=== PATIENT | female | born 1950 | race Caucasian/White ===

== ENCOUNTER → 2016-12-23 | Outpatient (CLI) | payer OTHER ==
[2016-11-20 10:43] VITALS: BP 139/65
--- NOTE | 2016-12-24 16:59 | MRI ---
STUDY: MRI OF THE CERVICAL SPINE HISTORY: Cervical disc degeneration. Comparison: None. Technique: An MRI of the cervical spine including sagittal T1, T2, and T2 STIR, axial T1, and T2 FSE images was performed using standard departmental protocol. Findings: Sagittal images: There postsurgical changes status post diskectomy with fusion and anterior plate and screw fixation from C5-7. There straightening of usual cervical lordosis at these levels. There is r eversal of the usual cervical lordosis centered at C4. There is some Modic type 1 change in the C3 an d C4 vertebral bodies. There is degenerative disk disease and degenerative endplate change at C3/4-C4 /5. There is no significant prevertebral soft tissue swelling. The surrounding paraspinal soft tissue s are unremarkable. There is no evidence of cord compression. No intrinsic signal abnormalities are identified in the spinal cord itself. Axial images: C2 -- C3: Normal. C3 -- C4: There is posterior disc osteophyte complex and bilateral uncovertebral osteophyte formation . This results in effacement of the ventral thecal sac and contouring of the ventral aspect of spinal cord. Overall, there is moderate to severe spinal stenosis. The neural foramina are adequate. C4 -- C5: This posterior disc osteophyte complex and bilateral uncovertebral osteophyte formation. Th e combination of these findings results in moderate central canal stenosis. The neural foramina are a dequate. C5 -- C6: There are postsurgical changes at this level. The central canal neural foramina are adequat e. C6 -- C7: There postsurgical changes at this level. The central canal neural foramina are adequate. C7 -- T1: Normal. IMPRESSION: 1. Postsurgical change status post fusion with anterior plate and screw fixation from C5-C7. 2. Moderate-severe spinal stenosis at C3/4. 3. Moderate spinal stenosis at C4/5. Reported By:
== END | disposition home or self-care (01) ==
LOC: RAD 14:58
PROVIDERS: ATTEND Nurse Practitioner Family
DX: M50.30 Other cervical disc degeneration, unspecified cervical region (principal); M48.02 Spinal stenosis, cervical region
CPT/HCPCS: 72141

== ENCOUNTER → 2017-04-07 | Outpatient (CLI) | payer OTHER ==
[2016-11-20 10:43] VITALS: BP 139/65
[2017-04-07 18:39] LABS: BASOPHILS # (AUTO) 0.1 X10^3/uL (0.0-0.1); BASOPHILS % (AUTO) 0.9 % (0.2-1.0); EOSINOPHILS % (AUTO) 0.3 % (0.9-2.9); HEMATOCRIT 34.2 % (36.0-47.0); HEMOGLOBIN 11.6 g/dL (12.0-16.0); LYMPHOCYTES # (AUTO) 1.7 X10^3/uL (1.3-2.9); LYMPHOCYTES % (AUTO) 17.9 % (21.0-51.0); MEAN CORPUSCULAR HEMOGLOBIN 29.1 pg (27.0-34.0); MEAN CORPUSCULAR HGB CONC 33.8 g/dL (33.0-35.0); MEAN CORPUSCULAR VOLUME 86.2 fL (80.0-100.0); MEAN PLATELET VOLUME 8.2 fL (7.4-11.0); MONOCYTES # (AUTO) 0.6 x10^3/uL (0.3-0.8); MONOCYTES % (AUTO) 6.1 % (0.0-13.0); NEUTROPHILS % (AUTO) 74.8 % (42.0-75.0); PLATELET COUNT 289 X10^3/uL (150.0-450.0); RED BLOOD COUNT 3.97 X10^6/uL (3.5-5.4); RED CELL DISTRIBUTION WIDTH 13.6 % (11.6-16.5); WHITE BLOOD COUNT 9.3 X10^3/uL (3.6-10.0)
[2017-04-07 19:04] LABS: ALANINE AMINOTRANSFERASE 18 Units/L (12-78); ALBUMIN 3.9 g/dL (3.4-5.0); ALKALINE PHOSPHATASE 106 Units/L (46-116); ASPARTATE AMINO TRANSFERASE 21 Units/L (15-37); BLOOD UREA NITROGEN 15 mg/dL (7-18); CALCIUM 9.6 mg/dL (8.5-10.1); CARBON DIOXIDE 29.3 mmol/L (21-32); CHLORIDE 103 mmol/L (98-107); CREATININE 0.84 mg/dL (0.55-1.02); FREE T4 (FREE THYROXINE) 1.05 ng/dL (0.76-1.46); SODIUM 140 mmol/L (136-145); TSH (3RD GENERATION) 1.379 uIU/mL (0.358-3.74); eGFR BLACK RACES > 60 (>60); eGFR NON BLACK RACES > 60 (>60)
--- NOTE | 2017-04-08 07:44 | RAD ---
HISTORY: Nausea, vomiting, constipation Study: Flat and upright abdomen, PA chest Comparison: None Findings: The abdominal gas pattern is nonspecific and nonobstructive. No pneumoperitoneum is identified. No ab normal masses or abnormal calcifications are identified. The chest is clear. IMPRESSION: Unremarkable abdominal series Reported By:
== END ==
LOC: LAB 17:48
PROVIDERS: ATTEND Nurse Practitioner Family
DX: R11.2 Nausea with vomiting, unspecified (principal); I10 Essential (primary) hypertension; R00.0 Tachycardia, unspecified; K59.09 Other constipation
CPT/HCPCS: 36415; 74022; 80053; 84439; 84443; 85025

== ENCOUNTER 2022-06-26 14:13 | Inpatient (IN) ==
[2022-06-26] MEDS ORDERED: DUONEB 0.5 MG/3 MG (3 mL) NEB ONE (16:18)
[2022-06-26] MEDS: DUONEB 0.5 MG/3 MG (3 mL) NEB SCH ×2 (16:45→20:40)
[2022-06-26] MEDS ORDERED: TESSALON PERLES PO PRN (17:20)
[2022-06-26 18:01] LABS: BASOPHILS # (AUTO) 0.1 X10^3/uL (0.0-0.1); BASOPHILS % (AUTO) 1.1 % (0.2-1.0); EOSINOPHILS # (AUTO) 0.2 x10^3/uL (0.0-0.2); EOSINOPHILS % (AUTO) 3.7 % (0.9-2.9); HEMATOCRIT 31.2 % (36.0-47.0); HEMOGLOBIN 10.6 g/dL (12.0-16.0); LYMPHOCYTES # (AUTO) 1.4 X10^3/uL (1.3-2.9); LYMPHOCYTES % (AUTO) 29.4 % (21.0-51.0); MEAN CORPUSCULAR HEMOGLOBIN 28.9 pg (27.0-34.0); MEAN CORPUSCULAR HGB CONC 33.9 g/dL (33.0-35.0); MEAN CORPUSCULAR VOLUME 85.2 fL (80.0-100.0); MEAN PLATELET VOLUME 8.5 fL (7.4-11.0); MONOCYTES # (AUTO) 0.5 x10^3/uL (0.3-0.8); MONOCYTES % (AUTO) 9.7 % (0.0-13.0); NEUTROPHILS # (AUTO) 2.6 x10^3/uL (2.2-4.8); NEUTROPHILS % (AUTO) 56.1 % (42.0-75.0); RED BLOOD COUNT 3.66 X10^6/uL (3.5-5.4); RED CELL DISTRIBUTION WIDTH 15.7 % (11.6-16.5); WHITE BLOOD COUNT 4.7 X10^3/uL (3.6-10.0)
[2022-06-26 18:04] LABS: ALANINE AMINOTRANSFERASE 24 Units/L (12-78); ALBUMIN 3.6 g/dL (3.4-5.0); ALKALINE PHOSPHATASE 46 Units/L (46-116); ASPARTATE AMINO TRANSFERASE 46 Units/L (15-37); BLOOD UREA NITROGEN 35 mg/dL (7-18); CALCIUM 8.6 mg/dL (8.5-10.1); CARBON DIOXIDE 28.6 mmol/L (21-32); CHLORIDE 106 mmol/L (98-107); CREATININE 1.58 mg/dL (0.55-1.02); MAGNESIUM 2.2 mg/dL (2.0-2.9); SODIUM 142 mmol/L (136-145); eGFR NON BLACK RACES 34 (>60)
[2022-06-26] MEDS ORDERED: VENTOLIN or PROAIR HFA IN PRN (18:13)
--- NOTE | 2022-06-26 18:20 | DR.H&P ---
H&P - History & Physical for Day of: H&P Date: 06/26/22 - Chief Complaint Chief Complaint: CCC, SOB - History of Present Illness History of Present Illness: PT IS 71 WF, DIRECT ADMIT FROM DR BUSTOS OFFICE WITH FAILED OUTPT TREATMENT OF PNEUMONIA WITH COPD. PT CO ONSET OF CCC ON THURSDAY NIGHT. PT HAS BEEN ON PO LEVAQUIN AND RECEIVED IM ROCEPHIN X 2 DOSES AND IM STEROIDS WITHOUT IMPROVEMENT IN RESPIRATORY SYMPTOMS. PT HAS PMH OF CAD, COPD, HTN, LUCHO, FLOWER, AND OA. PT ADMITTED FOR TREATMENT OF ACUTE ILLNESS. - Past Medical History Past Medical History: Anxiety, Arthritis, COPD, Coronary Artery Disease, GERD, Hypertension - Past Surgical History Surgical History: Hysterectomy, Other - Family History Family Medical History: Hypertension - Social History Does patient currently use any type of tobacco product: No Have you used tobacco products in the last 12 months: No Type of Tobacco Use: None Does any household member use tobacco: No Alcohol Use: None Drug Use: None - Medications Home Medications: codeine Adverse Reaction (Verified 09/30/19 09:24) CONTINUE taking the following medications albuterol sulfate 90 mcg/actuation aerosol inhaler 1 inh inhalation BID PRN Shortness Of Breath 06/26/22 [History] amlodipine 5 mg tablet 5 mg PO BID 06/26/22 [History] aspirin 81 mg chewable tablet 81 mg PO DAILY 06/26/22 [History] bupropion HCl 75 mg tablet 75 mg PO QAM 06/26/22 [History] carvedilol 12.5 mg tablet 12.5 mg PO BID 06/26/22 [History] citalopram 40 mg tablet 40 mg PO HS 06/26/22 [History] fenofibrate 160 mg tablet 160 mg PO QDAY 06/26/22 [History] fluticasone fur. 100 mcg-umeclid 62.5 mcg-vilant 25 mcg inhalat.powder (Trelegy Ellipta) 1 puff inhalation QDAY 06/26/22 [History] furosemide 20 mg tablet 20 mg PO QDAY 06/26/22 [History] hydrochlorothiazide 12.5 mg tablet 12.5 mg PO QDAY 06/26/22 [History] levofloxacin 500 mg tablet 500 mg PO DAILY 06/26/22 [History] losartan 50 mg tablet 50 mg PO QDAY 06/26/22 [History] meloxicam 7.5 mg tablet 7.5 mg PO QDAY 06/26/22 [History] omeprazole 20 mg capsule,delayed release 20 mg PO HS 06/26/22 [History] potassium chloride 10 mEq capsule,extended release 10 meq PO QAM 06/26/22 [History] ropinirole 2 mg tablet 2 mg PO BID 06/26/22 [History] tizanidine 2 mg tablet 2 mg PO QPM PRN Sleep 06/26/22 [History] - Review of Systems Constitutional: Fever, Chills, Weakness Eyes: No Symptoms Reported ENT: Nose Congestion Respiratory: Cough, Shortness of Breath, SOB with Excertion, Wheezing Cardiovascular: Palpitations Gastrointestinal: Nausea Genitourinary: No Symptoms Reported Musculoskeletal: No Symptoms Reported Skin: No Symptoms Reported Neurological: Weakness - Physical Exam Vital Signs: Temperature 98.4 F Pulse Rate [Left Radial] 60 Respiratory Rate 22 Blood Pressure [Right Arm] 158/70 O2 Sat by Pulse Oximetry 95 Oriented: Normal Eyes: Normal Ear: Normal Nose: Discharge Throat: Exudate Respiratory: Wheezes Throughout Cardiovascular: Tachycardia. negative: Edema : Normal Auscultation: Bowel Sounds: Normal Palpation: Normal Tenderness: Normal Skin: Decreased Turgur Musculoskeletal: Normal Psychiatric: Anxiety Affect: Anxious Speech Pattern: Clear, Appropriate - Assessment/Plan (1) Pneumonia Status: Acute Plan: ADMIT, PNEUMONIA PROTOCOL, IV LEVAQUIN. RESP CONSULT ON ADMISSION WITH ROOM AIR ABG, SUPPLEMENTAL O2. RESP THERAPY, SPUTUM CULTURE. BP CONTROL, VERIFY HOME MEDICATION. CXR ON ADMISSION, REPEAT AM LABS (2) COPD (chronic obstructive pulmonary disease) Status: Acute (3) Hypertension Status: Acute (4) CAD (coronary artery disease) Status: Acute - Allergies Allergies/Adverse Reactions: Allergies Allergy/AdvReac Type Severity Reaction Status Date / Time codeine AdvReac Verified 09/30/19 09:24
[2022-06-26] MEDS: SOLU-Medrol 125 MG VIAL IVP SCH ×2 (18:59→21:21)
[2022-06-26] MEDS: NS 1,000 ML IV 1,000 ML IV SCH (18:59)
[2022-06-26] MEDS: PROTONIX INJ 40 MG VIAL IVP SCH (18:59)
[2022-06-26] MEDS: LEVAQUIN PREMIX IV 500 MG 500 MG/100 ML BAG IV SCH (18:59)
[2022-06-26] MEDS: PULMICORT NEB TX 0.5 MG NEB SCH (20:40)
[2022-06-26] MEDS: ROBITUSSIN DM PO SCH (20:46)
[2022-06-26] MEDS: REQUIP PO SCH (20:46)
[2022-06-26] MEDS: NORVASC TAB 5 MG PO SCH (20:46)
[2022-06-26] MEDS: CELEXA PO SCH (20:46)
[2022-06-26] MEDS: PriLOSEC PO SCH (20:46)
[2022-06-26] MEDS: ZANAFLEX PO PRN (20:46)
[2022-06-26] MEDS: COREG TAB 12.5 MG PO SCH (20:46)
[2022-06-27] MEDS: NS 1,000 ML IV 1,000 ML IV SCH ×4 (02:23→21:17)
[2022-06-27 02:35] LABS: BILIRUBIN,URINE NEGATIVE (NEGATIVE); BLOOD/HEMOGLOBIN,URINE NEGATIVE (NEGATIVE); GLUCOSE, URINE NEGATIVE (NEGATIVE); KETONES,URINE NEGATIVE (NEGATIVE); LEUKOCYTE ESTERASE ,URINE NEGATIVE (NEGATIVE); NITRITES,URINE NEGATIVE (NEGATIVE); PROTEIN,URINE 1+ (NEGATIVE); UROBILINOGEN,URINE NORMAL (NORMAL)
[2022-06-27 02:55] LABS: APPEARANCE,URINE CLEAR (CLEAR); COLOR,URINE YELLOW (YELLOW)
[2022-06-27 02:56] LABS: BACTERIA,URINE NEGATIVE /HPF (NEGATIVE); RBC,URINE NONE SEEN /HPF (0-3); SQUAMOUS EPITHELIAL CELL,UR RARE /HPF (NEGATIVE)
[2022-06-27] MEDS: SOLU-Medrol 125 MG VIAL IVP SCH ×4 (05:22→21:18)
[2022-06-27 06:10] LABS: BASOPHILS % (AUTO) 0.8 % (0.2-1.0); HEMATOCRIT 32.6 % (36.0-47.0); HEMOGLOBIN 10.7 g/dL (12.0-16.0); LYMPHOCYTES # (AUTO) 0.9 X10^3/uL (1.3-2.9); LYMPHOCYTES % (AUTO) 20.4 % (21.0-51.0); MEAN CORPUSCULAR HEMOGLOBIN 28.1 pg (27.0-34.0); MEAN CORPUSCULAR VOLUME 85.4 fL (80.0-100.0); MEAN PLATELET VOLUME 8.6 fL (7.4-11.0); MONOCYTES # (AUTO) 0.1 x10^3/uL (0.3-0.8); MONOCYTES % (AUTO) 1.7 % (0.0-13.0); NEUTROPHILS # (AUTO) 3.5 x10^3/uL (2.2-4.8); NEUTROPHILS % (AUTO) 77.1 % (42.0-75.0); RED BLOOD COUNT 3.82 X10^6/uL (3.5-5.4); RED CELL DISTRIBUTION WIDTH 15.4 % (11.6-16.5); WHITE BLOOD COUNT 4.5 X10^3/uL (3.6-10.0)
[2022-06-27 06:23] LABS: ALANINE AMINOTRANSFERASE 23 Units/L (12-78); ALBUMIN 3.5 g/dL (3.4-5.0); ALKALINE PHOSPHATASE 47 Units/L (46-116); ASPARTATE AMINO TRANSFERASE 29 Units/L (15-37); BLOOD UREA NITROGEN 31 mg/dL (7-18); CALCIUM 8.7 mg/dL (8.5-10.1); CARBON DIOXIDE 26.9 mmol/L (21-32); CHLORIDE 108 mmol/L (98-107); COR NA(FOR HYPERGLY) 145 mmol/L (136-145); CREATININE 1.48 mg/dL (0.55-1.02); SODIUM 143 mmol/L (136-145); eGFR NON BLACK RACES 37 (>60)
[2022-06-27] MEDS: DUONEB 0.5 MG/3 MG (3 mL) NEB SCH ×4 (08:24→20:40)
[2022-06-27] MEDS: PULMICORT NEB TX 0.5 MG NEB SCH ×2 (08:24→20:40)
[2022-06-27] MEDS ORDERED: WELLBUTRIN XL 150 MG (DAILY) PO ONE (08:34)
[2022-06-27] MEDS: ROBITUSSIN DM PO SCH ×4 (08:44→20:43)
[2022-06-27] MEDS: PROTONIX INJ 40 MG VIAL IVP SCH (08:44)
[2022-06-27] MEDS: LEVAQUIN PREMIX IV 500 MG 500 MG/100 ML BAG IV SCH (08:45)
[2022-06-27] MEDS: MICRO K EXTEN CAP 10 MEQ PO SCH (08:47)
[2022-06-27] MEDS: COREG TAB 12.5 MG PO SCH ×2 (08:47→20:42)
[2022-06-27] MEDS: LASIX PO SCH (08:47)
[2022-06-27] MEDS: REQUIP PO SCH ×2 (08:47→20:43)
[2022-06-27] MEDS: NORVASC TAB 5 MG PO SCH ×2 (08:48→20:43)
[2022-06-27] MEDS: ASPIRIN 81 MG CHEWTAB PO SCH (08:48)
[2022-06-27] MEDS: WELLBUTRIN XL 150 MG (DAILY) PO SCH (08:48)
[2022-06-27] MEDS: COZAAR PO SCH (08:52)
[2022-06-27] MEDS: MOBIC TAB 15 MG PO SCH (08:52)
[2022-06-27] MEDS ORDERED: TRICOR TAB 160 MG PO SCH (09:00)
[2022-06-27] MEDS: LOVENOX INJ 40 MG SYR SC SCH (10:06)
[2022-06-27] MEDS ORDERED: TUSSIONEX PENNKINETIC SUSP PO PRN (11:11)
--- NOTE | 2022-06-27 13:38 | PCM.PROG ---
Progress Note - Progress Note for Day of Date of Exam: 06/27/22 - Subjective Subjective: PT IS 71 WF, DIRECT ADMIT FROM DR BUSTAMANTE OFFICE WITH PNEUMONIA, FAILED OUTPT THERAPY. PT IS CURRENTLY ON IV LEVAQUIN WITH CONTINUE DIFFUSE EXPIRATORY WHEEZES AND SOB ON EXERTION. PT HAS A SEVERE COUGH WITHOUT ABILITY TO PRODUCE AND SPUTUM SPECIMEN YET. PT ENCOURAGE ORAL HYDRATION AND PULMONARY TOILETING. WE ADDED TUSSIONEX FOR COUGH CONTROL. PT HAS BEEN ON IV SOLU MEDROL 80MG AND HER BP WAS ELEVATED THIS AM, SHE ALSO REPORTS SHE DID NOT SLEEP WELL. PLAN TO DECREASE SOLU MEDROL TO 40MG IV Q 8HRS AND REPEAT AM CXR. PT HAS AN ABG ORDERED ON ADMISSION, HOWEVER PT REFUSED TESTING. PT REPORTS SHE HAS COPD AND HAS HOME O2. - Past Medical Family Social History Past Med/Fam/Surg Hx: No changes since H&P Allergies: Allergies codeine Adverse Reaction (Verified 09/30/19 09:24) - Review of Systems ROS: No change since H&P - Vital Signs and I&O's Vital Signs: Temperature 97.6 F Pulse Rate [Left Radial] 86 Pulse Rate 68 Respiratory Rate 20 Blood Pressure [Right Arm] 177/76 O2 Sat by Pulse Oximetry 94 Intake and Output: Intake & Output 06/25/22 06/26/22 06/27/22 06/28/22 11:59 11:59 11:59 11:59 Intake Total 1613 / 1613 Balance 1613 / 1613 - Physical Exam Oriented: Normal Eyes: Normal Ear: Normal Nose: Discharge Throat: Exudate Respiratory: Diminished, Wheezes Cardiovascular: Tachycardia. negative: Edema : Normal Auscultation: Bowel Sounds: Normal Tenderness: Normal Skin: Decreased Turgur Musculoskeletal: Normal Psychiatric: Anxiety Affect: Anxious Speech Pattern: Clear, Appropriate - Laboratory and Diagnostics Result Diagrams: 06/27/22 05:29 06/27/22 05:29 Labs: Laboratory WBC 4.5 X10^3/uL (3.6-10.0) 06/27/22 05: RBC 3.82 X10^6/uL (3.5-5.4) 06/27/22 05:29 Hgb 10.7 g/dL (12.0-16.0) L 06/27/22 05:29 Hct 32.6 % (36.0-47.0) L 06/27/22 05:29 MCV 85.4 fL (80.0-100.0) 06/27/22 05:29 MCH 28.1 pg (27.0-34.0) 06/27/22 05:29 MCHC 33.0 g/dL (33.0-35.0) 06/27/22 05: RDW 15.4 % (11.6-16.5) 06/27/22 05:29 Plt Count 284 X10^3/uL (150.0-450.0) 06/27/22 05:29 MPV 8.6 fL (7.4-11.0) 06/27/22 05:29 Neut % (Auto) 77.1 % (42.0-75.0) H 06/27/22 05:29 Lymph % (Auto) 20.4 % (21.0-51.0) L 06/27/22 05:29 [place] % (Auto) 1.7 % (0.0-13.0) 06/27/22 05:29 Eos % (Auto) 0.0 % (0.9-2.9) L 06/27/22 05:29 Baso % (Auto) 0.8 % (0.2-1.0) 06/27/22 05:29 Neut # (Auto) 3.5 x10^3/uL (2.2-4.8) 06/27/22 05:29 Lymph # (Auto) 0.9 X10^3/uL (1.3-2.9) L 06/27/22 05:29 [place] # (Auto) 0.1 x10^3/uL (0.3-0.8) L 06/27/22 05:29 Eos # (Auto) 0.0 x10^3/uL (0.0-0.2) 06/27/22 05:29 Baso # (Auto) 0.0 X10^3/uL (0.0-0.1) 06/27/22 05:29 Absolute Nucleated RBC 0.0 /100WBC 06/27/22 05:29 Sodium 143 mmol/L (136-145) 06/27/22 05:29 Corrected Sodium 145 mmol/L (136-145) 06/27/22 05:29 Potassium 4.9 mmol/L (3.5-5.1) 06/27/22 05:29 Chloride 108 mmol/L (98-107) H 06/27/22 05:29 Carbon Dioxide 26.9 mmol/L (21-32) 06/27/22 05:29 BUN 31 mg/dL (7-18) H 06/27/22 05:29 Creatinine 1.48 mg/dL (0.55-1.02) H 06/27/22 05:29 Est GFR (MDRD) Af Amer 44 (>60) L 06/27/22 05:29 Est GFR (MDRD) Non-Af 37 (>60) L 06/27/22 05:29 Glucose 173 mg/dL (65-99) H 06/27/22 05:29 Calcium 8.7 mg/dL (8.5-10.1) 06/27/22 05:29 Corrected Calcium TNP 06/27/22 05:29 Magnesium 2.2 mg/dL (2.0-2.9) 06/26/22 17:41 Total Bilirubin 0.20 mg/dL (0.2-1.0) 06/27/22 05:29 AST 29 Units/L (15-37) 06/27/22 05:29 ALT 23 Units/L (12-78) 06/27/22 05:29 Alkaline Phosphatase 47 Units/L (46-116) 06/27/22 05:29 Total Protein 7.0 g/dL (6.4-8.2) 06/27/22 05:29 Albumin 3.5 g/dL (3.4-5.0) 06/27/22 05:29 Globulin 3.5 g/dL (2.5-4.5) 06/27/22 05:29 Albumin/Globulin Ratio 1.0 Ratio (1.1-2.1) L 06/27/22 05:29 Specimen Type Clean catch urine 06/27/22 02:20 Urine Color Yellow (YELLOW) 06/27/22 02:20 Urine Appearance Clear (CLEAR) 06/27/22 02:20 Urine pH 5.0 (5.0 - 8.0) 06/27/22 02:20 Ur Specific [place] 1.020 (1.000-1.030) 06/27/22 02:20 Urine Protein 1+ (NEGATIVE) 06/27/22 02:20 Urine Glucose (UA) Negative (NEGATIVE) 06/27/22 02:20 Urine Ketones Negative (NEGATIVE) 06/27/22 02:20 Urine Blood Negative (NEGATIVE) 06/27/22 02:20 Urine Nitrite Negative (NEGATIVE) 06/27/22 02:20 Urine Bilirubin Negative (NEGATIVE) 06/27/22 02:20 Urine Urobilinogen Normal (NORMAL) 06/27/22 02:20 Ur Leukocyte Esterase Negative (NEGATIVE) 06/27/22 02:20 Urine RBC None seen /HPF (0-3) 06/27/22 02:20 Urine WBC None seen /HPF (0-5) 06/27/22 02:20 Ur Squamous Epith Cells Rare /HPF (NEGATIVE) 06/27/22 02:20 Urine Bacteria Negative /HPF (NEGATIVE) 06/27/22 02:20 Ur Culture Indicated? No/not indicated 06/27/22 02:20 Resp Viral Panel (PCR) See scanned report 06/26/22 16:04 - Plan (1) Pneumonia Status: Acute Plan: PNEUMONIA PROTOCOL, IV LEVAQUIN. RESP CONSULT ON ADMISSION WITH ROOM AIR ABG, SUPPLEMENTAL O2. RESP THERAPY, SPUTUM CULTURE. BP CONTROL, VERIFY HOME MEDICATION. CXR ON ADMISSION, REPEAT AM LABS (2) COPD (chronic obstructive pulmonary disease) Status: Acute (3) Hypertension Status: Acute (4) CAD (coronary artery disease) Status: Acute
--- NOTE | 2022-06-27 13:53 | RAD ---
HISTORYPneumonia SOBSTUDYChest PA and lateral viewsCOMPARISONJuly 2021FINDINGSCardiomegaly and pulmonary underinflation without evidence for pneumonia, pulmonary edema or pleural effusion. And electronic device partly obscures the right lower lung on PA view.IMPRE . SSIONNo change or acute findings.Electronically signed by: CHRISTIAN HARTMANN (Jun 27, 2022 13:51:35)
[2022-06-27] MEDS ORDERED: CATAPRES TAB 0.1 MG PO ONE (16:06)
--- NOTE | 2022-06-27 16:20 | EKG ---
Test Reason : HTN PROTOCOL Blood Pressure : */* mmHG Vent. Rate : 85 BPM Atrial Rate : 85 BPM P-R Int : 170 ms QRS Dur : 118 ms QT Int : 414 ms P-R-T Axes : * 185 44 degrees QTc Int : 492 ms Suspect arm lead reversal, interpretation assumes no reversal Normal sinus rhythm Lateral infarct , age undetermined Abnormal ECG Borderline IVCD of LBBB type No previous ECGs available Confirmed by Gen Rand ([id number]) on 06/28/2022 3:24:04 PM Referred By: Confirmed By: Gen Rand
[2022-06-27] MEDS ORDERED: CATAPRES TAB 0.1 MG ONE (16:25)
[2022-06-27] MEDS: PriLOSEC PO SCH (20:42)
[2022-06-27] MEDS: CELEXA PO SCH (20:43)
[2022-06-27] MEDS: ZANAFLEX PO PRN (20:44)
[2022-06-28] MEDS: NS 1,000 ML IV 1,000 ML IV SCH ×3 (01:38→18:30)
[2022-06-28 05:16] LABS: ALANINE AMINOTRANSFERASE 20 Units/L (12-78); ALBUMIN 3.2 g/dL (3.4-5.0); ALKALINE PHOSPHATASE 38 Units/L (46-116); ASPARTATE AMINO TRANSFERASE 21 Units/L (15-37); BLOOD UREA NITROGEN 29 mg/dL (7-18); CALCIUM 8.3 mg/dL (8.5-10.1); CHLORIDE 110 mmol/L (98-107); COR CA(FOR HYPOALB) 8.9 mg/dL (8.5-10.1); COR NA(FOR HYPERGLY) 146 mmol/L (136-145); CREATININE 0.96 mg/dL (0.55-1.02); SODIUM 145 mmol/L (136-145); TOTAL PROTEIN 6.3 g/dL (6.4-8.2); eGFR NON BLACK RACES > 60 (>60)
[2022-06-28 05:20] LABS: BASOPHILS % (AUTO) 0.1 % (0.2-1.0); HEMATOCRIT 29.7 % (36.0-47.0); HEMOGLOBIN 9.9 g/dL (12.0-16.0); LYMPHOCYTES % (AUTO) 7.8 % (21.0-51.0); MEAN CORPUSCULAR HEMOGLOBIN 28.2 pg (27.0-34.0); MEAN CORPUSCULAR HGB CONC 33.2 g/dL (33.0-35.0); MEAN CORPUSCULAR VOLUME 84.8 fL (80.0-100.0); MEAN PLATELET VOLUME 8.5 fL (7.4-11.0); MONOCYTES # (AUTO) 0.6 x10^3/uL (0.3-0.8); MONOCYTES % (AUTO) 4.8 % (0.0-13.0); NEUTROPHILS # (AUTO) 10.6 x10^3/uL (2.2-4.8); NEUTROPHILS % (AUTO) 87.3 % (42.0-75.0); RED CELL DISTRIBUTION WIDTH 15.3 % (11.6-16.5); WHITE BLOOD COUNT 12.2 X10^3/uL (3.6-10.0)
[2022-06-28] MEDS: SOLU-Medrol 125 MG VIAL IVP SCH ×3 (05:44→20:12)
--- NOTE | 2022-06-28 06:58 | RAD ---
HISTORYSOBSTUDYCHEST, 1 [id number]/21/2023.TECHNIQUEPA or AP view of the chestFINDINGSRight chest wall device presumably as a vagus nerve stimulator. The cardiac silhouette is stably enlarged. Mediastinal contours appear stable. Minor right base subsegmental atelectasis. No definite pleural effusion or pneumothorax. Soft tissue attenuation limits evaluation.IMPRESSIONMinor right base subsegmental atelectasis.Electronically signed by: Favian Romero (Jun 28, 2022 06:57:15)
[2022-06-28] MEDS: PULMICORT NEB TX 0.5 MG NEB SCH ×2 (08:22→21:35)
[2022-06-28] MEDS: DUONEB 0.5 MG/3 MG (3 mL) NEB SCH ×4 (08:22→21:35)
[2022-06-28] MEDS: ROBITUSSIN DM PO SCH ×4 (08:48→20:12)
[2022-06-28] MEDS: NORVASC TAB 5 MG PO SCH ×2 (08:49→20:11)
[2022-06-28] MEDS: PROTONIX INJ 40 MG VIAL IVP SCH (08:49)
[2022-06-28] MEDS: MOBIC TAB 15 MG PO SCH (08:49)
[2022-06-28] MEDS: LASIX PO SCH (08:49)
[2022-06-28] MEDS: REQUIP PO SCH ×2 (08:49→20:08)
[2022-06-28] MEDS: ASPIRIN 81 MG CHEWTAB PO SCH (08:49)
[2022-06-28] MEDS: COZAAR PO SCH (08:49)
[2022-06-28] MEDS: COREG TAB 12.5 MG PO SCH ×2 (08:50→20:08)
[2022-06-28] MEDS: MICRO K EXTEN CAP 10 MEQ PO SCH (08:50)
[2022-06-28] MEDS: LOVENOX INJ 40 MG SYR SC SCH (08:50)
[2022-06-28] MEDS: LEVAQUIN PREMIX IV 500 MG 500 MG/100 ML BAG IV SCH (08:50)
[2022-06-28 10:21] LABS: ABG ALLEN TEST POS; ABG BASE EXCESS 2.4 mmol/L (-2.0-2.0); ABG HCO3 27.2 mmol/L (22-26)
[2022-06-28] MEDS ORDERED: SOLU-Medrol 40 MG VIAL IVP SCH (11:00)
[2022-06-28] MEDS ORDERED: WELLBUTRIN SR 150 MG (BID) PO ONE (11:10)
[2022-06-28] MEDS: WELLBUTRIN XL 150 MG (DAILY) PO SCH ×2 (11:12→17:11)
[2022-06-28] MEDS ORDERED: CATAPRES TAB 0.1 MG PO ONE (12:54)
[2022-06-28] MEDS ORDERED: APRESOLINE INJ 20 MG VIAL IVP ONE (12:54)
[2022-06-28] MEDS ORDERED: CATAPRES TAB 0.1 MG ONE (14:59)
--- NOTE | 2022-06-28 15:07 | CT ---
HISTORYr/o pe, elevated d-dimerSTUDYCTA CHESTCOMPARISONChest radiograph from 06/28/2022.TECHNIQUECTA chest protocol with axial images from the thoracic inlet to upper abdomen with IV contrast. Sagittal and coronal reformats and MIP images were created. Automated exposure control was utilized.FINDINGSThe visualized thyroid gland appears benign. Streak artifact from contrast in the right subclavian vein and SVC limits evaluation. Streak artifact from right chest wall device presumably a vagus stimulator limits evaluation. Streak artifact from patient's arms and chest wall as well as mild motion artifact limit evaluation. Moderately atherosclerotic normal caliber thoracic aorta. Normal caliber and patent central pulmonary artery. Limited evaluation for peripheral PE given limitations discussed above. The heart is mildly enlarged. No pericardial effusion. Mildly enlarged lymph node 1.4 cm short axis anterior to the left main pulmonary artery image 50 series 4. Visualized upper abdomen has a benign appearance. No acute osseous abnormality. 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 There is mild scattered ground-glass opacity and scattered interlobular septal thickening. Small bilateral pleural effusions. No pneumothorax.IMPRESSIONLimited study as above. No central PE. Limited evaluation for peripheral PE.Cardiomegaly. Mild pulmonary edema. Small pleural effusions.Electronically signed by: Favian Romero (Jun 28, 2022 15:05:31)
[2022-06-28] MEDS: PriLOSEC PO SCH (20:09)
[2022-06-28] MEDS: CELEXA PO SCH (20:09)
[2022-06-29] MEDS: NS 1,000 ML IV 1,000 ML IV SCH ×2 (02:05→14:10)
[2022-06-29 05:31] LABS: BASOPHILS % (AUTO) 0.1 % (0.2-1.0); HEMATOCRIT 29.7 % (36.0-47.0); HEMOGLOBIN 9.8 g/dL (12.0-16.0); LYMPHOCYTES % (AUTO) 7.6 % (21.0-51.0); MEAN CORPUSCULAR HGB CONC 33.1 g/dL (33.0-35.0); MEAN CORPUSCULAR VOLUME 84.6 fL (80.0-100.0); MEAN PLATELET VOLUME 8.6 fL (7.4-11.0); MONOCYTES # (AUTO) 0.5 x10^3/uL (0.3-0.8); MONOCYTES % (AUTO) 3.4 % (0.0-13.0); NEUTROPHILS # (AUTO) 11.9 x10^3/uL (2.2-4.8); NEUTROPHILS % (AUTO) 88.9 % (42.0-75.0); RED BLOOD COUNT 3.51 X10^6/uL (3.5-5.4); RED CELL DISTRIBUTION WIDTH 15.7 % (11.6-16.5); WHITE BLOOD COUNT 13.3 X10^3/uL (3.6-10.0)
[2022-06-29 05:43] LABS: ALANINE AMINOTRANSFERASE 22 Units/L (12-78); ALBUMIN 3.1 g/dL (3.4-5.0); ALKALINE PHOSPHATASE 35 Units/L (46-116); ASPARTATE AMINO TRANSFERASE 21 Units/L (15-37); BLOOD UREA NITROGEN 28 mg/dL (7-18); CALCIUM 8.3 mg/dL (8.5-10.1); CARBON DIOXIDE 29.5 mmol/L (21-32); CHLORIDE 106 mmol/L (98-107); COR NA(FOR HYPERGLY) 140 mmol/L (136-145); CREATININE 0.92 mg/dL (0.55-1.02); SODIUM 139 mmol/L (136-145); TOTAL PROTEIN 6.3 g/dL (6.4-8.2); eGFR NON BLACK RACES > 60 (>60)
[2022-06-29] MEDS: REQUIP PO SCH ×2 (08:42→21:07)
[2022-06-29] MEDS: LEVAQUIN PREMIX IV 500 MG 500 MG/100 ML BAG IV SCH (08:42)
[2022-06-29] MEDS: ASPIRIN 81 MG CHEWTAB PO SCH (08:43)
[2022-06-29] MEDS: COZAAR PO SCH (08:43)
[2022-06-29] MEDS: COREG TAB 12.5 MG PO SCH ×2 (08:43→21:07)
[2022-06-29] MEDS: PROTONIX INJ 40 MG VIAL IVP SCH (08:44)
[2022-06-29] MEDS: MOBIC TAB 15 MG PO SCH (08:44)
[2022-06-29] MEDS: ROBITUSSIN DM PO SCH ×4 (08:44→21:08)
[2022-06-29] MEDS: LASIX PO SCH (08:45)
[2022-06-29] MEDS: SOLU-Medrol 125 MG VIAL IVP SCH ×2 (08:45→21:08)
[2022-06-29] MEDS: LOVENOX INJ 40 MG SYR SC SCH (08:46)
[2022-06-29] MEDS: DUONEB 0.5 MG/3 MG (3 mL) NEB SCH ×4 (08:49→20:38)
[2022-06-29] MEDS: PULMICORT NEB TX 0.5 MG NEB SCH ×2 (08:50→20:38)
[2022-06-29] MEDS: MICRO K EXTEN CAP 10 MEQ PO SCH (08:51)
[2022-06-29] MEDS: WELLBUTRIN XL 150 MG (DAILY) PO SCH ×2 (10:00→14:15)
[2022-06-29] MEDS: NORVASC TAB 5 MG PO SCH ×2 (10:00→21:07)
--- NOTE | 2022-06-29 12:46 | RAD ---
HISTORYSOB, COPD exacerbationSTUDYCHEST, 1 [id number]/2023.TECHNIQUEPA or AP view of the chestFINDINGSCardiac silhouette is enlarged. Right chest wall device likely vagal stimulator. Left base is suboptimally evaluated. Right lung appears clear. No definite pleural effusion or pneumothorax. Soft tissue attenuation limits evaluation.IMPRESSIONCardiomegaly. No definite acute pulmonary process.Electronically signed by: Favian Romero (Jun 29, 2022 12:44:10)
[2022-06-29] MEDS ORDERED: WELLBUTRIN XL 150 MG (DAILY) PO ONE (14:05)
[2022-06-29] MEDS: PriLOSEC PO SCH (21:07)
[2022-06-29] MEDS: CELEXA PO SCH (21:07)
[2022-06-30] MEDS: NS 1,000 ML IV 1,000 ML IV SCH (03:17)
[2022-06-30] MEDS ORDERED: CATAPRES TAB 0.1 MG PO ONE (05:22)
[2022-06-30 05:53] LABS: BASOPHILS % (AUTO) 0.1 % (0.2-1.0); HEMATOCRIT 29.5 % (36.0-47.0); HEMOGLOBIN 9.8 g/dL (12.0-16.0); LYMPHOCYTES % (AUTO) 8.2 % (21.0-51.0); MEAN CORPUSCULAR HEMOGLOBIN 28.1 pg (27.0-34.0); MEAN CORPUSCULAR HGB CONC 33.2 g/dL (33.0-35.0); MEAN CORPUSCULAR VOLUME 84.6 fL (80.0-100.0); MEAN PLATELET VOLUME 8.4 fL (7.4-11.0); MONOCYTES # (AUTO) 0.6 x10^3/uL (0.3-0.8); MONOCYTES % (AUTO) 4.8 % (0.0-13.0); NEUTROPHILS # (AUTO) 10.6 x10^3/uL (2.2-4.8); NEUTROPHILS % (AUTO) 86.9 % (42.0-75.0); RED BLOOD COUNT 3.49 X10^6/uL (3.5-5.4); RED CELL DISTRIBUTION WIDTH 15.7 % (11.6-16.5); WHITE BLOOD COUNT 12.2 X10^3/uL (3.6-10.0)
[2022-06-30 06:02] LABS: ALANINE AMINOTRANSFERASE 20 Units/L (12-78); ALBUMIN 3.1 g/dL (3.4-5.0); ALKALINE PHOSPHATASE 43 Units/L (46-116); ASPARTATE AMINO TRANSFERASE 20 Units/L (15-37); BLOOD UREA NITROGEN 26 mg/dL (7-18); CALCIUM 8.2 mg/dL (8.5-10.1); CARBON DIOXIDE 32.7 mmol/L (21-32); CHLORIDE 106 mmol/L (98-107); COR CA(FOR HYPOALB) 8.9 mg/dL (8.5-10.1); COR NA(FOR HYPERGLY) 144 mmol/L (136-145); SODIUM 143 mmol/L (136-145); TOTAL PROTEIN 6.1 g/dL (6.4-8.2); eGFR NON BLACK RACES > 60 (>60)
[2022-06-30] MEDS: LEVAQUIN PREMIX IV 500 MG 500 MG/100 ML BAG IV SCH (08:07)
[2022-06-30] MEDS: LOVENOX INJ 40 MG SYR SC SCH (08:08)
[2022-06-30] MEDS: ROBITUSSIN DM PO SCH (08:08)
[2022-06-30] MEDS: LASIX PO SCH (08:08)
[2022-06-30] MEDS: MOBIC TAB 15 MG PO SCH (08:09)
[2022-06-30] MEDS: ASPIRIN 81 MG CHEWTAB PO SCH (08:09)
[2022-06-30] MEDS: COREG TAB 12.5 MG PO SCH (08:09)
[2022-06-30] MEDS: REQUIP PO SCH (08:09)
[2022-06-30] MEDS: COZAAR PO SCH (08:09)
[2022-06-30] MEDS: PROTONIX INJ 40 MG VIAL IVP SCH (08:10)
[2022-06-30] MEDS: SOLU-Medrol 125 MG VIAL IVP SCH (08:10)
[2022-06-30] MEDS: NORVASC TAB 5 MG PO SCH (08:10)
[2022-06-30 08:19] VITALS: BP 193/86
[2022-06-30] MEDS: PULMICORT NEB TX 0.5 MG NEB SCH (08:47)
[2022-06-30] MEDS: DUONEB 0.5 MG/3 MG (3 mL) NEB SCH (08:47)
== END 2022-06-30 12:00 | disposition home or self-care (01) | DRG 194 ==
LOC: MED/SURG 15:49
PROVIDERS: ADMIT Internal Medicine; ATTEND Internal Medicine
DX: I10 Essential (primary) hypertension; I25.10 Atherosclerotic heart disease of native coronary artery without angina pectoris; E86.0 Dehydration; J18.0 Bronchopneumonia, unspecified organism; R94.31 Abnormal electrocardiogram [ECG] [EKG]; F41.8 Other specified anxiety disorders; J44.1 Chronic obstructive pulmonary disease with (acute) exacerbation; R09.02 Hypoxemia; Z20.822 Contact with and (suspected) exposure to COVID-19; J98.11 Atelectasis; R06.02 Shortness of breath

== ENCOUNTER 2022-10-06 15:08 | Inpatient (IN) ==
[2022-10-06 15:47] LABS: ABG ALLEN TEST POS; ABG HCO3 38.4 mmol/L (22-26)
[2022-10-06] MEDS ORDERED: DUONEB 0.5 MG/3 MG (3 mL) NEB ONE (16:16)
[2022-10-06] MEDS: DUONEB 0.5 MG/3 MG (3 mL) NEB SCH ×2 (16:19→18:30)
[2022-10-06 16:30] VITALS: BMI 35.1
[2022-10-06] MEDS ORDERED: SOLU-Medrol 40 MG VIAL IVP SCH (17:00)
[2022-10-06 17:04] LABS: ALANINE AMINOTRANSFERASE 18 Units/L (12-78); ALBUMIN 3.6 g/dL (3.4-5.0); ALKALINE PHOSPHATASE 67 Units/L (46-116); ASPARTATE AMINO TRANSFERASE 20 Units/L (15-37); BLOOD UREA NITROGEN 15 mg/dL (7-18); CALCIUM 8.3 mg/dL (8.5-10.1); CARBON DIOXIDE 36.8 mmol/L (21-32); CREATININE 0.97 mg/dL (0.55-1.02); GLUCOSE 149 mg/dL (65-99); MAGNESIUM 2.3 mg/dL (2.0-2.9); TOTAL PROTEIN 6.8 g/dL (6.4-8.2); eGFR NON BLACK RACES 60 (>60)
[2022-10-06 17:07] LABS: BASOPHILS # (AUTO) 0.1 X10^3/uL (0.0-0.1); BASOPHILS % (AUTO) 1.3 % (0.2-1.0); EOSINOPHILS # (AUTO) 0.4 x10^3/uL (0.0-0.2); EOSINOPHILS % (AUTO) 3.9 % (0.9-2.9); HEMATOCRIT 27.7 % (36.0-47.0); HEMOGLOBIN 9.3 g/dL (12.0-16.0); LYMPHOCYTES # (AUTO) 1.1 X10^3/uL (1.3-2.9); LYMPHOCYTES % (AUTO) 10.5 % (21.0-51.0); MEAN CORPUSCULAR HEMOGLOBIN 29.4 pg (27.0-34.0); MEAN CORPUSCULAR HGB CONC 33.7 g/dL (33.0-35.0); MEAN CORPUSCULAR VOLUME 87.1 fL (80.0-100.0); MEAN PLATELET VOLUME 9.1 fL (7.4-11.0); MONOCYTES # (AUTO) 0.7 x10^3/uL (0.3-0.8); MONOCYTES % (AUTO) 6.8 % (0.0-13.0); NEUTROPHILS # (AUTO) 7.8 x10^3/uL (2.2-4.8); NEUTROPHILS % (AUTO) 77.5 % (42.0-75.0); PLATELET COUNT 283 X10^3/uL (150.0-450.0); RED BLOOD COUNT 3.18 X10^6/uL (3.5-5.4); RED CELL DISTRIBUTION WIDTH 15.4 % (11.6-16.5); WHITE BLOOD COUNT 10.1 X10^3/uL (3.6-10.0)
--- NOTE | 2022-10-06 17:09 | EKG ---
Test Reason : SOB, HYPERTENSIVE Blood Pressure : */* mmHG Vent. Rate : 82 BPM Atrial Rate : 82 BPM P-R Int : 146 ms QRS Dur : 118 ms QT Int : 432 ms P-R-T Axes : 52 14 156 degrees QTc Int : 504 ms Sinus rhythm with frequent premature ventricular complexes Possible Left atrial enlargement Left ventricular hypertrophy with QRS widening and repolarization abnormality ( R in aVL , Eladio pr oduct , Romhilt-Larson ) Prolonged QT Suspicious for WPW Abnormal ECG When compared with ECG of 27-JUN-2022 16:13, Significant changes have occurred Confirmed by Gen Rand ([id number]) on 10/07/2022 8:01:51 AM Referred By: Confirmed By: Gen Rand
[2022-10-06 17:22] LABS: CHLORIDE 104 mmol/L (98-107); COR NA(FOR HYPERGLY) 147 mmol/L (136-145); SODIUM 146 mmol/L (136-145)
[2022-10-06] MEDS: NS 1,000 ML IV 1,000 ML IV SCH (17:22)
[2022-10-06] MEDS: LEVAQUIN PREMIX IV 500 MG 500 MG/100 ML BAG IV SCH (17:22)
[2022-10-06] MEDS: APRESOLINE INJ 20 MG VIAL IVP PRN (17:24)
[2022-10-06] MEDS: ROBITUSSIN DM PO SCH ×2 (17:24→21:25)
[2022-10-06] MEDS ORDERED: NORVASC TAB 5 MG PO ONE (18:14)
[2022-10-06] MEDS ORDERED: COZAAR PO ONE (18:15)
--- NOTE | 2022-10-06 18:17 | DR.H&P ---
H&P - History & Physical for Day of: H&P Date: 10/06/22 - Chief Complaint Chief Complaint: SOB, CCC - History of Present Illness History of Present Illness: PT IS 72 WF, DIRECT ADMIT FROM DR BUSTAMANTE OFFICE WITH SOB ONSET THURSDAY AND FAILED TO IMPROVE WITH CONTINUOUS SUPPLMENTAL O2 AND DUO NEBS. PTS SAT WAS 78% AFTER WALKING TO EXAM ROOM, BP WAS 200/110. PT HAS PMH OF COPD, HTN, FLOWER, OA, HYPERLIPIDEMIA AND LUCHO. PT ADMITTED FOR TREATMENT OF ACUTE ILLNESS. - Past Medical History Past Medical History: Anxiety, Arthritis, COPD, Coronary Artery Disease, GERD, Hypertension - Past Surgical History Surgical History: Hysterectomy, Other - Family History Family Medical History: Diabetes Mellitus, Cancer, Hypertension - Social History Does patient currently use any type of tobacco product: No Have you used tobacco products in the last 12 months: No Type of Tobacco Use: None Does any household member use tobacco: No Alcohol Use: None Drug Use: None - Review of Systems Constitutional: Weakness. denies: Fever Eyes: No Symptoms Reported ENT: No Symptoms Reported Respiratory: Cough, Shortness of Breath, Wheezing Cardiovascular: Palpitations Gastrointestinal: Nausea Genitourinary: No Symptoms Reported Musculoskeletal: No Symptoms Reported Skin: No Symptoms Reported Neurological: Other (CO HEADAHCE) - Physical Exam Vital Signs: Vital Signs Temperature 97.8 F Pulse Rate 84 Pulse Rate 79 Pulse Rate 82 Pulse Rate 79 Pulse Rate 78 Pulse Rate 78 Pulse Rate 78 Pulse Rate 75 Pulse Rate 76 Pulse Rate 77 Respiratory Rate 18 Respiratory Rate 19 Respiratory Rate 20 Blood Pressure 205/86 Blood Pressure 183/93 Blood Pressure 221/93 Blood Pressure 227/103 Blood Pressure 206/81 Blood Pressure 206/81 Blood Pressure 153/70 Blood Pressure 196/61 Blood Pressure 209/84 O2 Sat by Pulse Oximetry 100 O2 Sat by Pulse Oximetry 97 O2 Sat by Pulse Oximetry 97 O2 Sat by Pulse Oximetry 94 O2 Sat by Pulse Oximetry 96 O2 Sat by Pulse Oximetry 91 O2 Sat by Pulse Oximetry 92 O2 Sat by Pulse Oximetry 98 O2 Sat by Pulse Oximetry 99 O2 Sat by Pulse Oximetry 91 O2 Sat by Pulse Oximetry 91 O2 Sat by Pulse Oximetry 97 Oriented: Normal Eyes: Normal Ear: Normal Nose: Normal Throat: Normal Respiratory: Wheezes Throughout Cardiovascular: Tachycardia : Normal Auscultation: Bowel Sounds: Normal Palpation: Normal Tenderness: Normal Skin: Normal Musculoskeletal: Normal Psychiatric: Anxiety Mood Description: Anxious Affect: Anxious Speech Pattern: Clear, Appropriate - Assessment/Plan (1) Hypoxia Status: Acute Plan: ADMIT, SUPPLEMENTAL O2. DUO NEBS, IV SOLU MEDROL. BLOOD PRESSURE CONTROL, EKG MONITORING. CE ON ADMISSION. REPEAT AM CXR, VERIFY HOME MEDICATION. RESP SWAB ON ADMISSION (2) COPD (chronic obstructive pulmonary disease) Status: Acute (3) Hypertension Status: Acute (4) CAD (coronary artery disease) Status: Acute (5) Hypertensive urgency Status: Acute - Allergies Allergies/Adverse Reactions: Allergies Allergy/AdvReac Type Severity Reaction Status Date / Time codeine AdvReac Verified 09/30/19 09:24 - Medications Home Medications: Home Medications Medication Instructions Recorded Confirmed albuterol sulfate 90 mcg/actuation 1 inh inhalation BID PRN Shortness 06/26/22 10/06/22 aerosol inhaler Of Breath amlodipine 5 mg tablet 5 mg PO BID 06/26/22 10/06/22 aspirin 81 mg chewable tablet 81 mg PO DAILY 06/26/22 10/06/22 bupropion HCl 75 mg tablet 75 mg PO QAM 06/26/22 10/06/22 carvedilol 12.5 mg tablet 12.5 mg PO BID 06/26/22 10/06/22 citalopram 40 mg tablet 40 mg PO HS 06/26/22 10/06/22 fenofibrate 160 mg tablet 160 mg PO QDAY 06/26/22 10/06/22 fluticasone fur. 100 mcg-umeclid 1 puff inhalation QDAY 06/26/22 10/06/22 62.5 mcg-vilant 25 mcg inhalat.powder (Trelegy Ellipta) furosemide 20 mg tablet 20 mg PO QDAY 06/26/22 10/06/22 hydrochlorothiazide 12.5 mg tablet 12.5 mg PO QDAY 06/26/22 10/06/22 losartan 50 mg tablet 50 mg PO QDAY 06/26/22 10/06/22 meloxicam 7.5 mg tablet 7.5 mg PO QDAY 06/26/22 10/06/22 omeprazole 20 mg capsule,delayed 20 mg PO 06/26/22 10/06/22 release potassium chloride 10 mEq 10 meq PO QAM 06/26/22 10/06/22 capsule,extended release ropinirole 2 mg tablet 2 mg PO TID 06/26/22 10/06/22 tizanidine 2 mg tablet 2 mg PO QPM PRN Sleep 06/26/22 10/06/22 cyanocobalamin (vitamin B-12) 1,000 mcg PO QDAY 10/06/22 10/06/22 1,000 mcg tablet losartan 50 mg tablet 50 mg PO QDAY 10/06/22 10/06/22
[2022-10-06] MEDS: LASIX PO SCH (18:24)
[2022-10-06] MEDS ORDERED: CONSULT PHARMACY - POTASSIUM & MAGNESIUM XX SCH (19:00)
[2022-10-06] MEDS ORDERED: PULMICORT NEB TX 0.5 MG NEB ONE (19:24)
[2022-10-06] MEDS: PULMICORT NEB TX 0.5 MG NEB SCH (20:01)
[2022-10-06] MEDS: SOLU-Medrol 40 MG VIAL IVP SCH (20:13)
[2022-10-06] MEDS: VISTARIL PO PRN (20:27)
[2022-10-06] MEDS: ULTRAM PO PRN (20:27)
--- NOTE | 2022-10-06 20:44 | RAD ---
HISTORYSOBSTUDYCHEST, 1 [id number]/23/2023FINDINGSThe lungs are clear. No pneumothorax or significant effusion. Elevation of the right hemidiaphragm is present.Cardiomegaly is stable.Bones are unremarkable.Stimulator battery pack overlies the right chest. Fixation hardware is in the cervical spine.IMPRESSION1. Cardiomegaly2. No acute lung diseaseElectronically signed by: Chris Mcmahon (Oct 06, 2022 20:42:53)
[2022-10-06] MEDS ORDERED: POTASSIUM CHLORIDE LIQ PO SCH (21:00)
[2022-10-06] MEDS: COREG TAB 12.5 MG PO SCH (21:27)
[2022-10-06] MEDS: PriLOSEC PO SCH (21:27)
[2022-10-06] MEDS: REQUIP PO SCH (21:27)
[2022-10-07] MEDS: DUONEB 0.5 MG/3 MG (3 mL) NEB SCH ×4 (00:10→17:09)
[2022-10-07 05:12] LABS: BASOPHILS % (AUTO) 0.4 % (0.2-1.0); HEMATOCRIT 27.4 % (36.0-47.0); HEMOGLOBIN 9.2 g/dL (12.0-16.0); LYMPHOCYTES # (AUTO) 0.7 X10^3/uL (1.3-2.9); LYMPHOCYTES % (AUTO) 6.3 % (21.0-51.0); MEAN CORPUSCULAR HEMOGLOBIN 29.1 pg (27.0-34.0); MEAN CORPUSCULAR HGB CONC 33.6 g/dL (33.0-35.0); MEAN CORPUSCULAR VOLUME 86.8 fL (80.0-100.0); MEAN PLATELET VOLUME 8.8 fL (7.4-11.0); MONOCYTES # (AUTO) 0.3 x10^3/uL (0.3-0.8); MONOCYTES % (AUTO) 2.6 % (0.0-13.0); NEUTROPHILS # (AUTO) 10.1 x10^3/uL (2.2-4.8); NEUTROPHILS % (AUTO) 90.7 % (42.0-75.0); PLATELET COUNT 291 X10^3/uL (150.0-450.0); RED BLOOD COUNT 3.15 X10^6/uL (3.5-5.4); RED CELL DISTRIBUTION WIDTH 15.5 % (11.6-16.5); WHITE BLOOD COUNT 11.1 X10^3/uL (3.6-10.0)
[2022-10-07 05:24] LABS: ALANINE AMINOTRANSFERASE 18 Units/L (12-78); ALBUMIN 3.3 g/dL (3.4-5.0); ALKALINE PHOSPHATASE 53 Units/L (46-116); ASPARTATE AMINO TRANSFERASE 17 Units/L (15-37); BLOOD UREA NITROGEN 15 mg/dL (7-18); CALCIUM 8.5 mg/dL (8.5-10.1); CARBON DIOXIDE 34.1 mmol/L (21-32); COR CA(FOR HYPOALB) 9.1 mg/dL (8.5-10.1); CREATININE 0.84 mg/dL (0.55-1.02); GLUCOSE 137 mg/dL (65-99); TOTAL PROTEIN 6.6 g/dL (6.4-8.2); eGFR NON BLACK RACES > 60 (>60)
[2022-10-07 05:37] LABS: CHLORIDE 105 mmol/L (98-107); COR NA(FOR HYPERGLY) 144 mmol/L (136-145); SODIUM 143 mmol/L (136-145)
[2022-10-07 05:39] LABS: PLATELET MORPHOLOGY COMMENT NORMAL (NORMAL)
[2022-10-07] MEDS: REQUIP PO SCH ×3 (05:41→21:10)
[2022-10-07 05:42] LABS: POTASSIUM 5.1 mmol/L (3.5-5.1)
[2022-10-07] MEDS ORDERED: TUSSIONEX PENNKINETIC SUSP PO PRN (08:33)
[2022-10-07] MEDS: PULMICORT NEB TX 0.5 MG NEB SCH ×2 (08:45→21:10)
[2022-10-07] MEDS ORDERED: COZAAR PO SCH (09:00)
[2022-10-07] MEDS ORDERED: NORVASC TAB 5 MG PO SCH (09:00)
[2022-10-07] MEDS: COREG TAB 12.5 MG PO SCH ×2 (09:24→21:10)
[2022-10-07] MEDS: LEVAQUIN PREMIX IV 500 MG 500 MG/100 ML BAG IV SCH (09:24)
[2022-10-07] MEDS: COZAAR PO SCH (09:24)
[2022-10-07] MEDS: LASIX PO SCH (09:24)
[2022-10-07] MEDS: SOLU-Medrol 40 MG VIAL IVP SCH (09:25)
[2022-10-07] MEDS: ROBITUSSIN DM PO SCH ×4 (09:25→21:10)
[2022-10-07] MEDS: NS 1,000 ML IV 1,000 ML IV SCH ×2 (10:00→21:11)
[2022-10-07] MEDS: LOVENOX INJ 30 MG SYR SC SCH (10:52)
[2022-10-07] MEDS: APRESOLINE INJ 20 MG VIAL IVP PRN (12:34)
[2022-10-07] MEDS: PROCARDIA XL PO SCH (18:03)
[2022-10-07] MEDS: VISTARIL PO PRN (21:10)
[2022-10-07] MEDS: PriLOSEC PO SCH (21:10)
[2022-10-08] MEDS: DUONEB 0.5 MG/3 MG (3 mL) NEB SCH ×4 (00:15→17:20)
[2022-10-08 05:43] LABS: BASOPHILS # (AUTO) 0.1 X10^3/uL (0.0-0.1); BASOPHILS % (AUTO) 0.7 % (0.2-1.0); EOSINOPHILS % (AUTO) 0.3 % (0.9-2.9); HEMATOCRIT 25.2 % (36.0-47.0); HEMOGLOBIN 8.6 g/dL (12.0-16.0); LYMPHOCYTES # (AUTO) 1.6 X10^3/uL (1.3-2.9); LYMPHOCYTES % (AUTO) 15.4 % (21.0-51.0); MEAN CORPUSCULAR HEMOGLOBIN 29.9 pg (27.0-34.0); MEAN CORPUSCULAR HGB CONC 34.3 g/dL (33.0-35.0); MEAN CORPUSCULAR VOLUME 87.1 fL (80.0-100.0); MONOCYTES # (AUTO) 0.8 x10^3/uL (0.3-0.8); MONOCYTES % (AUTO) 7.6 % (0.0-13.0); NEUTROPHILS # (AUTO) 7.7 x10^3/uL (2.2-4.8); PLATELET COUNT 284 X10^3/uL (150.0-450.0); RED BLOOD COUNT 2.89 X10^6/uL (3.5-5.4); RED CELL DISTRIBUTION WIDTH 15.6 % (11.6-16.5); WHITE BLOOD COUNT 10.1 X10^3/uL (3.6-10.0)
[2022-10-08] MEDS: REQUIP PO SCH ×3 (05:46→21:00)
[2022-10-08 05:51] LABS: BLOOD UREA NITROGEN 26 mg/dL (7-18); CALCIUM 8.8 mg/dL (8.5-10.1); CARBON DIOXIDE 30.7 mmol/L (21-32); CHLORIDE 107 mmol/L (98-107); CREATININE 0.94 mg/dL (0.55-1.02); GLUCOSE 110 mg/dL (65-99); POTASSIUM 3.8 mmol/L (3.5-5.1); SODIUM 144 mmol/L (136-145); eGFR NON BLACK RACES > 60 (>60)
[2022-10-08 06:08] LABS: ABG BASE EXCESS 7.2 mmol/L (-2.0-2.0)
[2022-10-08 06:13] LABS: ABG HCO3 31.2 mmol/L (22-26)
--- NOTE | 2022-10-08 06:14 | RAD ---
HISTORYSOBSTUDYCHEST, 1 [id number]/31/2023FINDINGSThe cardiomediastinal silhouette is stable. Right-sided stimulator device unchanged. Similar mild elevation of the right hemidiaphragm. No acute airspace disease. No pneumothorax or effusion. The bony thorax appears intact.IMPRESSIONNo acute cardiopulmonary disease.Electronically signed by: BETH GALVEZ (Oct 08, 2022 06:12:31)
[2022-10-08 06:15] LABS: ALANINE AMINOTRANSFERASE 14 Units/L (12-78); ALBUMIN 3.1 g/dL (3.4-5.0); ALKALINE PHOSPHATASE 58 Units/L (46-116); ASPARTATE AMINO TRANSFERASE 14 Units/L (15-37); COR CA(FOR HYPOALB) 9.5 mg/dL (8.5-10.1); TOTAL PROTEIN 6.2 g/dL (6.4-8.2)
[2022-10-08] MEDS ORDERED: CONSULT PHARMACY - POTASSIUM & MAGNESIUM XX SCH (07:00)
[2022-10-08] MEDS: COREG TAB 12.5 MG PO SCH ×2 (08:39→20:02)
[2022-10-08] MEDS: K-DUR TAB 20 MEQ PO SCH (08:39)
[2022-10-08] MEDS: PROCARDIA XL PO SCH (08:39)
[2022-10-08] MEDS: COZAAR PO SCH (08:40)
[2022-10-08] MEDS: LASIX IVP SCH (08:40)
[2022-10-08] MEDS: SOLU-Medrol 40 MG VIAL IVP SCH (08:40)
[2022-10-08] MEDS: LOVENOX INJ 30 MG SYR SC SCH (08:40)
[2022-10-08] MEDS: ROBITUSSIN DM PO SCH ×4 (08:40→20:03)
[2022-10-08] MEDS: LEVAQUIN PREMIX IV 500 MG 500 MG/100 ML BAG IV SCH (08:41)
[2022-10-08] MEDS ORDERED: K-DUR TAB 20 MEQ PO ONE (09:00)
[2022-10-08] MEDS: PULMICORT NEB TX 0.5 MG NEB SCH ×2 (09:51→21:00)
[2022-10-08] MEDS: NS 1,000 ML IV 1,000 ML IV SCH ×2 (12:42→13:32)
--- NOTE | 2022-10-08 18:33 | PCM.PROG ---
Progress Note - Progress Note for Day of Date of Exam: 10/08/22 - Subjective Subjective: This is a 72-year-old white female who was a direct admit from our office yesterday with chronic obstructive pulmonary disease exacerbation and hypertensive urgency. Since admission, the patient has been on antibiotics, low-dose corticosteroids, Duonebs, and supplemental O2. She has also been on deep venous thrombosis prophylaxis with Lovenox 30 mg daily. The patient is on hypertensive protocol with hydralazine 10 mg every six hours. I increased her Losartan to 100 mg daily and amlodipine 5 mg twice a day. She is already on Carvedilol 2.5 mg twice a day. We decreased her corticosteroid dose down to once daily due to her high blood pressure. The patient did have complaints of improving shortness of breath at rest this morning. Her blood pressure was still uncontrolled, so we changed norvasc to nifedipine 30mg with some improvement this morning. - Past Medical Family Social History Past Med/Fam/Surg Hx: No changes since H&P Allergies: Allergies codeine Adverse Reaction (Verified 09/30/19 09:24) - Review of Systems ROS: No change since H&P - Vital Signs and I&O's Vital Signs: Vital Signs Pulse Rate 82 Pulse Rate 82 Pulse Rate 78 Pulse Rate 76 Pulse Rate 75 Pulse Rate 75 Pulse Rate 44 Pulse Rate 74 Respiratory Rate 25 Respiratory Rate 26 Respiratory Rate 31 Respiratory Rate 41 Respiratory Rate 29 Respiratory Rate 20 Respiratory Rate 27 Blood Pressure 157/70 Blood Pressure 156/67 Blood Pressure 156/67 Blood Pressure 148/83 Blood Pressure 140/64 Blood Pressure 140/64 O2 Sat by Pulse Oximetry 97 O2 Sat by Pulse Oximetry 98 O2 Sat by Pulse Oximetry 97 O2 Sat by Pulse Oximetry 97 O2 Sat by Pulse Oximetry 99 O2 Sat by Pulse Oximetry 96 Intake and Output: Intake & Output 10/06/22 10/07/22 10/08/22 10/09/22 11:59 11:59 11:59 11:59 Intake Total 1203 / 1203 2075 1076 / 1076 Balance 1203 / 1203 2075 107 / 1076 - Physical Exam Oriented: Normal Eyes: Normal Ear: Normal Nose: Normal Throat: Normal Respiratory: Diminished, Wheezes, Rhonchi Cardiovascular: Tachycardia : Normal Auscultation: Bowel Sounds: Normal Tenderness: Normal Skin: Normal Musculoskeletal: Normal Psychiatric: Anxiety Mood Description: Anxious Affect: Anxious Speech Pattern: Clear, Appropriate - Laboratory and Diagnostics Result Diagrams: 10/08/22 04:51 10/08/22 04:51 Labs: 10/06/22 15:47 Sputum - Expectorated Sputum Sputum Culture - Preliminary 10/06/22 15:47 Sputum - Expectorated Sputum - Final Laboratory WBC 10.1 X10^3/uL (3.6-10.0) H 10/08/22 04:51 RBC 2.89 X10^6/uL (3.5-5.4) L 10/08/22 04:51 Hgb 8.6 g/dL (12.0-16.0) L 10/08/22 04:51 Hct 25.2 % (36.0-47.0) L 10/08/22 04:51 MCV 87.1 fL (80.0-100.0) 10/08/22 04:51 MCH 29.9 pg (27.0-34.0) 10/08/22 04:51 MCHC 34.3 g/dL (33.0-35.0) 10/08/22 04:51 RDW 15.6 % (11.6-16.5) 10/08/22 04:51 Plt Count 284 X10^3/uL (150.0-450.0) 10/08/22 04:51 Plt Count Comment Adequate (ADEQUATE) 10/07/22 04:36 MPV 9.0 fL (7.4-11.0) 10/08/22 04:51 Neut % (Auto) 76.0 % (42.0-75.0) H 10/08/22 04:51 Lymph % (Auto) 15.4 % (21.0-51.0) L 10/08/22 04:51 [place] % (Auto) 7.6 % (0.0-13.0) 10/08/22 04:51 Eos % (Auto) 0.3 % (0.9-2.9) L 10/08/22 04:51 Baso % (Auto) 0.7 % (0.2-1.0) 10/08/22 04:51 Neut # (Auto) 7.7 x10^3/uL (2.2-4.8) H 10/08/22 04:51 Lymph # (Auto) 1.6 X10^3/uL (1.3-2.9) 10/08/22 04:51 [place] # (Auto) 0.8 x10^3/uL (0.3-0.8) 10/08/22 04:51 Eos # (Auto) 0.0 x10^3/uL (0.0-0.2) 10/08/22 04:51 Baso # (Auto) 0.1 X10^3/uL (0.0-0.1) 10/08/22 04:51 Absolute Nucleated RBC 0.0 /100WBC 10/08/22 04:51 Total Counted 100 10/07/22 04:36 Neutrophils % (Manual) 94 % (39-76) H 10/07/22 04:36 Lymphocytes % (Manual) 5 % (13-43) L 10/07/22 04:36 Monocytes % (Manual) 1 % (4-9) L 10/07/22 04:36 Plt Morphology Comment Normal (NORMAL) 10/07/22 04:36 RBC Morphology Normal (NORMAL) 10/07/22 04:36 Sample Site R brachial 10/08/22 06:03 ABG pH 7.490 (7.35-7.45) H 10/08/22 06:03 ABG pCO2 41.0 mmHg (35.0-45.0) 10/08/22 06:03 ABG pO2 144.0 mmHg (80.0-100.0) H 10/08/22 06:03 ABG HCO3 31.2 mmol/L (22-26) H* 10/08/22 06:03 ABG O2 Saturation 99.0 % (90-100) 10/08/22 06:03 ABG Base Excess 7.2 mmol/L (-2.0-2.0) H 10/08/22 06:03 Henrry Test Na 10/08/22 06:03 A-a Gradient 4.0 mmHg 10/08/22 06:03 FiO2 28.0 10/08/22 06:03 Blood Gas Comments Avinash gallo, al 10/08/22 06:03 Sodium 144 mmol/L (136-145) 10/08/22 04:51 Corrected Sodium TNP 10/08/22 04:51 Potassium 3.8 mmol/L (3.5-5.1) 10/08/22 04:51 Chloride 107 mmol/L (98-107) 10/08/22 04:51 Carbon Dioxide 30.7 mmol/L (21-32) 10/08/22 04:51 BUN 26 mg/dL (7-18) H 10/08/22 04:51 Creatinine 0.94 mg/dL (0.55-1.02) 10/08/22 04:51 Est GFR (MDRD) Af Amer > 60 (>60) 10/08/22 04:51 Est GFR (MDRD) Non-Af > 60 (>60) 10/08/22 04:51 Glucose 110 mg/dL (65-99) H 10/08/22 04:51 Calcium 8.8 mg/dL (8.5-10.1) 10/08/22 04:51 Corrected Calcium 9.5 mg/dL (8.5-10.1) 10/08/22 04:51 Magnesium 2.2 mg/dL (2.0-2.9) 10/08/22 04:51 Total Bilirubin 0.20 mg/dL (0.2-1.0) 10/08/22 04:51 AST 14 Units/L (15-37) L 10/08/22 04:51 ALT 14 Units/L (12-78) 10/08/22 04:51 Alkaline Phosphatase 58 Units/L (46-116) 10/08/22 04:51 B-Natriuretic Peptide 838 pg/mL (0-79) H* 10/08/22 04:51 Total Protein 6.2 g/dL (6.4-8.2) L 10/08/22 04:51 Albumin 3.1 g/dL (3.4-5.0) L 10/08/22 04:51 Globulin 3.1 g/dL (2.5-4.5) 10/08/22 04:51 Albumin/Globulin Ratio 1.0 Ratio (1.1-2.1) L 10/08/22 04:51 SARS-CoV-2 (PCR) Negative (NEGATIVE) 10/07/22 08:02 Influenza Type A (PCR) Negative (NEGATIVE) 10/07/22 08:02 Influenza Type B (PCR) Negative (NEGATIVE) 10/07/22 08:02 RSV (PCR) Negative (NEGATIVE) 10/07/22 08:02 - Plan (1) Hypoxia Status: Acute Plan: SUPPLEMENTAL O2. DUO NEBS, IV SOLU MEDROL. BLOOD PRESSURE CONTROL, EKG MONITORING. CE ON ADMISSION. REPEAT AM CXR, VERIFY HOME MEDICATION. RESP SWAB ON ADMISSION (2) COPD (chronic obstructive pulmonary disease) Status: Acute (3) Hypertension Status: Acute (4) CAD (coronary artery disease) Status: Acute (5) Hypertensive urgency Status: Acute
[2022-10-08] MEDS: PriLOSEC PO SCH (20:02)
[2022-10-08] MEDS: VISTARIL PO PRN (20:02)
[2022-10-09] MEDS: DUONEB 0.5 MG/3 MG (3 mL) NEB SCH ×4 (00:30→16:23)
[2022-10-09] MEDS: NS 1,000 ML IV 1,000 ML IV SCH ×2 (01:12→14:16)
[2022-10-09] MEDS: REQUIP PO SCH ×3 (05:02→21:35)
[2022-10-09 05:10] LABS: BASOPHILS # (AUTO) 0.1 X10^3/uL (0.0-0.1); BASOPHILS % (AUTO) 0.8 % (0.2-1.0); EOSINOPHILS # (AUTO) 0.1 x10^3/uL (0.0-0.2); EOSINOPHILS % (AUTO) 0.6 % (0.9-2.9); HEMATOCRIT 26.4 % (36.0-47.0); HEMOGLOBIN 8.9 g/dL (12.0-16.0); LYMPHOCYTES # (AUTO) 1.5 X10^3/uL (1.3-2.9); LYMPHOCYTES % (AUTO) 14.7 % (21.0-51.0); MEAN CORPUSCULAR HEMOGLOBIN 29.1 pg (27.0-34.0); MEAN CORPUSCULAR HGB CONC 33.5 g/dL (33.0-35.0); MEAN CORPUSCULAR VOLUME 86.9 fL (80.0-100.0); MEAN PLATELET VOLUME 8.9 fL (7.4-11.0); MONOCYTES # (AUTO) 0.8 x10^3/uL (0.3-0.8); MONOCYTES % (AUTO) 7.8 % (0.0-13.0); NEUTROPHILS # (AUTO) 7.8 x10^3/uL (2.2-4.8); NEUTROPHILS % (AUTO) 76.1 % (42.0-75.0); PLATELET COUNT 308 X10^3/uL (150.0-450.0); RED BLOOD COUNT 3.04 X10^6/uL (3.5-5.4); RED CELL DISTRIBUTION WIDTH 15.4 % (11.6-16.5); WHITE BLOOD COUNT 10.2 X10^3/uL (3.6-10.0)
[2022-10-09 05:15] LABS: ALANINE AMINOTRANSFERASE 15 Units/L (12-78); ALBUMIN 3.2 g/dL (3.4-5.0); ALKALINE PHOSPHATASE 54 Units/L (46-116); ASPARTATE AMINO TRANSFERASE 14 Units/L (15-37); BLOOD UREA NITROGEN 30 mg/dL (7-18); CALCIUM 8.6 mg/dL (8.5-10.1); CARBON DIOXIDE 32.7 mmol/L (21-32); CHLORIDE 101 mmol/L (98-107); COR CA(FOR HYPOALB) 9.2 mg/dL (8.5-10.1); CREATININE 0.94 mg/dL (0.55-1.02); GLUCOSE 94 mg/dL (65-99); POTASSIUM 3.9 mmol/L (3.5-5.1); SODIUM 140 mmol/L (136-145); TOTAL PROTEIN 6.3 g/dL (6.4-8.2); eGFR NON BLACK RACES > 60 (>60)
--- NOTE | 2022-10-09 07:58 | RAD ---
HISTORYSOB Relevant Clinical InformationSTUDYCHEST, 1 [id number]/2023FINDINGSThe trachea is midline. There is moderate stable cardiomegaly. There is an automated device projecting in the right chest probably epidural catheter. There is no evidence of pulmonary edema, pneumothorax or pleural effusionsMild chronic changes in the left base. No dominant alveolar radiopacities.IMPRESSIONNo acute cardiopulmonary findings .Electronically signed by: Maria Esther Kent (Oct 09, 2022 07:57:41)
[2022-10-09] MEDS: PULMICORT NEB TX 0.5 MG NEB SCH ×2 (08:15→20:49)
[2022-10-09] MEDS: SOLU-Medrol 40 MG VIAL IVP SCH (08:50)
[2022-10-09] MEDS: PROCARDIA XL PO SCH (08:50)
[2022-10-09] MEDS: LASIX IVP SCH (08:50)
[2022-10-09] MEDS: LOVENOX INJ 30 MG SYR SC SCH (08:50)
[2022-10-09] MEDS: K-DUR TAB 20 MEQ PO SCH (08:50)
[2022-10-09] MEDS: ROBITUSSIN DM PO SCH ×4 (08:50→20:33)
[2022-10-09] MEDS: LEVAQUIN PREMIX IV 500 MG 500 MG/100 ML BAG IV SCH (08:50)
[2022-10-09] MEDS: COZAAR PO SCH (08:51)
[2022-10-09] MEDS: COREG TAB 12.5 MG PO SCH ×2 (08:51→20:34)
[2022-10-09] MEDS ORDERED: PROCARDIA XL PO NR (10:00)
--- NOTE | 2022-10-09 17:44 | PCM.PROG ---
Progress Note - Progress Note for Day of Date of Exam: 10/09/22 - Subjective Subjective: This is a 72-year-old white female who was a direct admit from our office yesterday with chronic obstructive pulmonary disease exacerbation and hypertensive urgency. Since admission, the patient has been on antibiotics, low-dose corticosteroids, Duonebs, and supplemental O2. She has also been on deep venous thrombosis prophylaxis with Lovenox 30 mg daily. The patient is on hypertensive protocol with hydralazine 10 mg every six hours. She is on losartan 100mg po daily, carvedilol and procardia 30. Her blood pressure has improved since started procardia and plan to increased to 30bid. Pt's sputum is positive for klebiella, sensative to levaquin. Plan to repeat am ABG on room air and repeat am chest xray. - Past Medical Family Social History Past Med/Fam/Surg Hx: No changes since H&P Allergies: Allergies codeine Adverse Reaction (Verified 09/30/19 09:24) - Review of Systems ROS: No change since H&P - Vital Signs and I&O's Vital Signs: Vital Signs Temperature 97.3 F Pulse Rate 68 Pulse Rate 65 Pulse Rate 67 Pulse Rate 67 Pulse Rate 69 Pulse Rate 66 Pulse Rate 66 Pulse Rate 66 Pulse Rate 67 Pulse Rate 66 Pulse Rate 63 Pulse Rate 67 Pulse Rate 66 Pulse Rate 66 Respiratory Rate 35 Respiratory Rate 34 Respiratory Rate 29 Respiratory Rate 23 Respiratory Rate 24 Respiratory Rate 19 Respiratory Rate 26 Respiratory Rate 27 Respiratory Rate 43 Respiratory Rate 29 Respiratory Rate 37 Respiratory Rate 22 Respiratory Rate 29 Blood Pressure 160/72 Blood Pressure 178/74 Blood Pressure 163/71 Blood Pressure 146/66 Blood Pressure 161/71 Blood Pressure 180/74 O2 Sat by Pulse Oximetry 97 O2 Sat by Pulse Oximetry 96 O2 Sat by Pulse Oximetry 98 O2 Sat by Pulse Oximetry 98 O2 Sat by Pulse Oximetry 96 O2 Sat by Pulse Oximetry 98 O2 Sat by Pulse Oximetry 98 O2 Sat by Pulse Oximetry 96 O2 Sat by Pulse Oximetry 90 O2 Sat by Pulse Oximetry 97 O2 Sat by Pulse Oximetry 98 O2 Sat by Pulse Oximetry 98 O2 Sat by Pulse Oximetry 100 O2 Sat by Pulse Oximetry 100 Intake and Output: Intake & Output 10/07/22 10/08/22 10/09/22 10/10/22 11:59 11:59 11:59 11:59 Intake Total 1203 / 1203 2075 506 / 506 Balance 1203 / 1203 2075 506 / 506 - Physical Exam Oriented: Normal Eyes: Normal Ear: Normal Nose: Normal Throat: Normal Respiratory: Diminished, Wheezes, Rhonchi Cardiovascular: Tachycardia : Normal Auscultation: Bowel Sounds: Normal Tenderness: Normal Skin: Normal Musculoskeletal: Normal Psychiatric: Anxiety Mood Description: Anxious Affect: Anxious Speech Pattern: Clear, Appropriate - Laboratory and Diagnostics Result Diagrams: 10/09/22 04:41 10/09/22 04:41 Labs: 10/06/22 15:47 Sputum - Expectorated Sputum Sputum Culture - Final Klebsiella Oxytoca 10/06/22 15:47 Sputum - Expectorated Sputum - Final Laboratory WBC 10.2 X10^3/uL (3.6-10.0) H 10/09/22 04:41 RBC 3.04 X10^6/uL (3.5-5.4) L 10/09/22 04:41 Hgb 8.9 g/dL (12.0-16.0) L 10/09/22 04:41 Hct 26.4 % (36.0-47.0) L 10/09/22 04:41 MCV 86.9 fL (80.0-100.0) 10/09/22 04:41 MCH 29.1 pg (27.0-34.0) 10/09/22 04:41 MCHC 33.5 g/dL (33.0-35.0) 10/09/22 04:41 RDW 15.4 % (11.6-16.5) 10/09/22 04:41 Plt Count 308 X10^3/uL (150.0-450.0) 10/09/22 04:41 Plt Count Comment Adequate (ADEQUATE) 10/07/22 04:36 MPV 8.9 fL (7.4-11.0) 10/09/22 04:41 Neut % (Auto) 76.1 % (42.0-75.0) H 10/09/22 04:41 Lymph % (Auto) 14.7 % (21.0-51.0) L 10/09/22 04:41 [place] % (Auto) 7.8 % (0.0-13.0) 10/09/22 04:41 Eos % (Auto) 0.6 % (0.9-2.9) L 10/09/22 04:41 Baso % (Auto) 0.8 % (0.2-1.0) 10/09/22 04:41 Neut # (Auto) 7.8 x10^3/uL (2.2-4.8) H 10/09/22 04:41 Lymph # (Auto) 1.5 X10^3/uL (1.3-2.9) 10/09/22 04:41 [place] # (Auto) 0.8 x10^3/uL (0.3-0.8) 10/09/22 04:41 Eos # (Auto) 0.1 x10^3/uL (0.0-0.2) 10/09/22 04:41 Baso # (Auto) 0.1 X10^3/uL (0.0-0.1) 10/09/22 04:41 Absolute Nucleated RBC 0.1 /100WBC 10/09/22 04:41 Total Counted 100 10/07/22 04:36 Neutrophils % (Manual) 94 % (39-76) H 10/07/22 04:36 Lymphocytes % (Manual) 5 % (13-43) L 10/07/22 04:36 Monocytes % (Manual) 1 % (4-9) L 10/07/22 04:36 Plt Morphology Comment Normal (NORMAL) 10/07/22 04:36 RBC Morphology Normal (NORMAL) 10/07/22 04:36 Sample Site R brachial 10/08/22 06:03 ABG pH 7.490 (7.35-7.45) H 10/08/22 06:03 ABG pCO2 41.0 mmHg (35.0-45.0) 10/08/22 06:03 ABG pO2 144.0 mmHg (80.0-100.0) H 10/08/22 06:03 ABG HCO3 31.2 mmol/L (22-26) H* 10/08/22 06:03 ABG O2 Saturation 99.0 % (90-100) 10/08/22 06:03 ABG Base Excess 7.2 mmol/L (-2.0-2.0) H 10/08/22 06:03 Henrry Test Na 10/08/22 06:03 A-a Gradient 4.0 mmHg 10/08/22 06:03 FiO2 28.0 10/08/22 06:03 Blood Gas Comments Avinash well, mt 10/08/22 06:03 Sodium 140 mmol/L (136-145) 10/09/22 04:41 Corrected Sodium TNP 10/09/22 04:41 Potassium 3.9 mmol/L (3.5-5.1) 10/09/22 04:41 Chloride 101 mmol/L (98-107) 10/09/22 04:41 Carbon Dioxide 32.7 mmol/L (21-32) H 10/09/22 04:41 BUN 30 mg/dL (7-18) H 10/09/22 04:41 Creatinine 0.94 mg/dL (0.55-1.02) 10/09/22 04:41 Est GFR (MDRD) Af Amer > 60 (>60) 10/09/22 04:41 Est GFR (MDRD) Non-Af > 60 (>60) 10/09/22 04:41 Glucose 94 mg/dL (65-99) 10/09/22 04:41 Calcium 8.6 mg/dL (8.5-10.1) 10/09/22 04:41 Corrected Calcium 9.2 mg/dL (8.5-10.1) 10/09/22 04:41 Magnesium 2.2 mg/dL (2.0-2.9) 10/08/22 04:51 Total Bilirubin 0.20 mg/dL (0.2-1.0) 10/09/22 04:41 AST 14 Units/L (15-37) L 10/09/22 04:41 ALT 15 Units/L (12-78) 10/09/22 04:41 Alkaline Phosphatase 54 Units/L (46-116) 10/09/22 04:41 B-Natriuretic Peptide 581 pg/mL (0-79) H* 10/09/22 04:41 Total Protein 6.3 g/dL (6.4-8.2) L 10/09/22 04:41 Albumin 3.2 g/dL (3.4-5.0) L 10/09/22 04:41 Globulin 3.1 g/dL (2.5-4.5) 10/09/22 04:41 Albumin/Globulin Ratio 1.0 Ratio (1.1-2.1) L 10/09/22 04:41 SARS-CoV-2 (PCR) Negative (NEGATIVE) 10/07/22 08:02 Influenza Type A (PCR) Negative (NEGATIVE) 10/07/22 08:02 Influenza Type B (PCR) Negative (NEGATIVE) 10/07/22 08:02 RSV (PCR) Negative (NEGATIVE) 10/07/22 08:02 - Plan (1) Hypoxia Status: Acute Plan: SUPPLEMENTAL O2. SHER NEBS, IV SOLU MEDROL. BLOOD PRESSURE CONTROL, EKG MONITORING. CE ON ADMISSION. REPEAT AM CXR, VERIFY HOME MEDICATION. RESP SWAB ON ADMISSION (2) COPD (chronic obstructive pulmonary disease) Status: Acute (3) Hypertension Status: Acute (4) CAD (coronary artery disease) Status: Acute (5) Hypertensive urgency Status: Acute
[2022-10-09] MEDS: PriLOSEC PO SCH (20:34)
[2022-10-09] MEDS: VISTARIL PO PRN (20:34)
[2022-10-10] MEDS: DUONEB 0.5 MG/3 MG (3 mL) NEB SCH ×6 (00:37→16:58)
[2022-10-10 05:03] LABS: BASOPHILS # (AUTO) 0.1 X10^3/uL (0.0-0.1); BASOPHILS % (AUTO) 0.9 % (0.2-1.0); EOSINOPHILS # (AUTO) 0.1 x10^3/uL (0.0-0.2); EOSINOPHILS % (AUTO) 0.6 % (0.9-2.9); HEMATOCRIT 29.9 % (36.0-47.0); LYMPHOCYTES % (AUTO) 18.4 % (21.0-51.0); MEAN CORPUSCULAR HEMOGLOBIN 28.9 pg (27.0-34.0); MEAN CORPUSCULAR HGB CONC 33.3 g/dL (33.0-35.0); MEAN CORPUSCULAR VOLUME 86.7 fL (80.0-100.0); MEAN PLATELET VOLUME 8.8 fL (7.4-11.0); NEUTROPHILS # (AUTO) 7.6 x10^3/uL (2.2-4.8); NEUTROPHILS % (AUTO) 71.1 % (42.0-75.0); PLATELET COUNT 359 X10^3/uL (150.0-450.0); RED BLOOD COUNT 3.45 X10^6/uL (3.5-5.4); RED CELL DISTRIBUTION WIDTH 15.4 % (11.6-16.5); WHITE BLOOD COUNT 10.7 X10^3/uL (3.6-10.0)
[2022-10-10 05:17] LABS: ALANINE AMINOTRANSFERASE 17 Units/L (12-78); ALBUMIN 3.3 g/dL (3.4-5.0); ALKALINE PHOSPHATASE 62 Units/L (46-116); ASPARTATE AMINO TRANSFERASE 15 Units/L (15-37); BLOOD UREA NITROGEN 31 mg/dL (7-18); CALCIUM 8.7 mg/dL (8.5-10.1); CARBON DIOXIDE 33.5 mmol/L (21-32); CHLORIDE 102 mmol/L (98-107); COR CA(FOR HYPOALB) 9.3 mg/dL (8.5-10.1); CREATININE 0.86 mg/dL (0.55-1.02); GLUCOSE 84 mg/dL (65-99); SODIUM 140 mmol/L (136-145); TOTAL PROTEIN 6.5 g/dL (6.4-8.2); eGFR NON BLACK RACES > 60 (>60)
[2022-10-10] MEDS: NS 1,000 ML IV 1,000 ML IV SCH ×2 (05:53→19:19)
[2022-10-10] MEDS: REQUIP PO SCH ×3 (05:53→21:06)
--- NOTE | 2022-10-10 06:07 | RAD ---
HISTORYCOPD, bronchitisSTUDYChest AP [id number]/03/2023FINDINGSHear t remains enlarged. No congestive heart failure is noted. No acute alveolar infiltrates or pleural effusions are identified. There is a battery pack overlying the right upper lobe obscuring a portion of the lateral right upper lobe. Bony thorax is unremarkable.IMPRESSIONCardiomegaly without congestive heart failureNo definite infiltratesElectronically signed by: BETH GALVEZ (Oct 10, 2022 06:05:32)
[2022-10-10 07:25] LABS: ABG BASE EXCESS 9.1 mmol/L (-2.0-2.0)
[2022-10-10 07:26] LABS: ABG ALLEN TEST POS; ABG HCO3 35.5 mmol/L (22-26)
[2022-10-10] MEDS: LOVENOX INJ 30 MG SYR SC SCH (08:52)
[2022-10-10] MEDS: K-DUR TAB 20 MEQ PO SCH (08:52)
[2022-10-10] MEDS: COREG TAB 12.5 MG PO SCH ×2 (08:53→21:07)
[2022-10-10] MEDS: LASIX IVP SCH (08:53)
[2022-10-10] MEDS: PROCARDIA XL 24-hr PO SCH (08:53)
[2022-10-10] MEDS: SOLU-Medrol 40 MG VIAL IVP SCH (08:53)
[2022-10-10] MEDS: COZAAR PO SCH (08:53)
[2022-10-10] MEDS: ROBITUSSIN DM PO SCH ×4 (08:53→21:06)
[2022-10-10] MEDS: LEVAQUIN PREMIX IV 500 MG 500 MG/100 ML BAG IV SCH (08:56)
[2022-10-10] MEDS: PULMICORT NEB TX 0.5 MG NEB SCH ×2 (09:15→20:00)
--- NOTE | 2022-10-10 13:15 | PCM.PROG ---
Progress Note - Progress Note for Day of Date of Exam: 10/10/22 - Subjective Subjective: This is a 72-year-old white female who was a direct admit from our office yesterday with chronic obstructive pulmonary disease exacerbation and hypertensive urgency. Since admission, the patient has been on antibiotics, low-dose corticosteroids, Duonebs, and supplemental O2. She has also been on deep venous thrombosis prophylaxis with Lovenox 30 mg daily. The patient is on hypertensive protocol with hydralazine 10 mg every six hours. She is on losartan 100mg po daily, carvedilol and procardia 30. Her blood pressure has improved since started procardia and increased to 60mg daily. Pt's sputum is positive for klebiella, sensative to levaquin. Repeat am ABG on room air obtained this m orning with PO2 54. We reviewed labs and cxr results with pt and her family. Plan to continue with Iv lasix 40mg daily with strict I&Os. 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 - Past Medical Family Social History Past Med/Fam/Surg Hx: No changes since H&P Allergies: Allergies codeine Adverse Reaction (Verified 09/30/19 09:24) - Review of Systems ROS: No change since H&P - Vital Signs and I&O's Vital Signs: Vital Signs Temperature 98.3 F Temperature 98.0 F Pulse Rate 69 Pulse Rate 70 Pulse Rate 67 Pulse Rate 71 Pulse Rate 71 Pulse Rate 71 Pulse Rate 71 Pulse Rate 70 Pulse Rate 71 Pulse Rate 65 Pulse Rate 68 Pulse Rate 73 Respiratory Rate 22 Respiratory Rate 37 Respiratory Rate 27 Respiratory Rate 25 Respiratory Rate 34 Respiratory Rate 41 Respiratory Rate 34 Respiratory Rate 24 Respiratory Rate 33 Respiratory Rate 30 Respiratory Rate 24 Respiratory Rate 27 Blood Pressure 145/67 Blood Pressure 144/92 Blood Pressure 171/78 Blood Pressure 185/77 Blood Pressure 173/73 Blood Pressure 184/76 Blood Pressure 160/70 O2 Sat by Pulse Oximetry 98 O2 Sat by Pulse Oximetry 96 O2 Sat by Pulse Oximetry 94 O2 Sat by Pulse Oximetry 98 O2 Sat by Pulse Oximetry 98 O2 Sat by Pulse Oximetry 94 O2 Sat by Pulse Oximetry 94 O2 Sat by Pulse Oximetry 98 O2 Sat by Pulse Oximetry 100 O2 Sat by Pulse Oximetry 100 Intake and Output: Intake & Output 10/08/22 10/09/22 10/10/22 10/11/22 11:59 11:59 11:59 11:59 Intake Total 2075 1248 / 1248 Balance 2075 1248 / 1248 - Physical Exam Oriented: Normal Eyes: Normal Ear: Normal Nose: Normal Throat: Normal Respiratory: Diminished, Wheezes, Rhonchi Cardiovascular: Tachycardia : Normal Auscultation: Bowel Sounds: Normal Tenderness: Normal Skin: Normal Musculoskeletal: Normal Psychiatric: Anxiety Mood Description: Anxious Affect: Anxious Speech Pattern: Clear, Appropriate - Laboratory and Diagnostics Result Diagrams: 10/10/22 04:32 10/10/22 04:32 Labs: 10/06/22 15:47 Sputum - Expectorated Sputum Sputum Culture - Final Klebsiella Oxytoca 10/06/22 15:47 Sputum - Expectorated Sputum - Final Laboratory WBC 10.7 X10^3/uL (3.6-10.0) H 10/10/22 04:32 RBC 3.45 X10^6/uL (3.5-5.4) L 10/10/22 04:32 Hgb 10.0 g/dL (12.0-16.0) L 10/10/22 04:32 Hct 29.9 % (36.0-47.0) L 10/10/22 04:32 MCV 86.7 fL (80.0-100.0) 10/10/22 04:32 MCH 28.9 pg (27.0-34.0) 10/10/22 04:32 MCHC 33.3 g/dL (33.0-35.0) 10/10/22 04:32 RDW 15.4 % (11.6-16.5) 10/10/22 04:32 Plt Count 359 X10^3/uL (150.0-450.0) 10/10/22 04:32 Plt Count Comment Adequate (ADEQUATE) 10/07/22 04:36 MPV 8.8 fL (7.4-11.0) 10/10/22 04:32 Neut % (Auto) 71.1 % (42.0-75.0) 10/10/22 04:32 Lymph % (Auto) 18.4 % (21.0-51.0) L 10/10/22 04:32 [place] % (Auto) 9.0 % (0.0-13.0) 10/10/22 04:32 Eos % (Auto) 0.6 % (0.9-2.9) L 10/10/22 04:32 Baso % (Auto) 0.9 % (0.2-1.0) 10/10/22 04:32 Neut # (Auto) 7.6 x10^3/uL (2.2-4.8) H 10/10/22 04:32 Lymph # (Auto) 2.0 X10^3/uL (1.3-2.9) 10/10/22 04:32 [place] # (Auto) 1.0 x10^3/uL (0.3-0.8) H 10/10/22 04:32 Eos # (Auto) 0.1 x10^3/uL (0.0-0.2) 10/10/22 04:32 Baso # (Auto) 0.1 X10^3/uL (0.0-0.1) 10/10/22 04:32 Absolute Nucleated RBC 0.0 /100WBC 10/10/22 04:32 Total Counted 100 10/07/22 04:36 Neutrophils % (Manual) 94 % (39-76) H 10/07/22 04:36 Lymphocytes % (Manual) 5 % (13-43) L 10/07/22 04:36 Monocytes % (Manual) 1 % (4-9) L 10/07/22 04:36 Plt Morphology Comment Normal (NORMAL) 10/07/22 04:36 RBC Morphology Normal (NORMAL) 10/07/22 04:36 Sample Site Rr 10/10/22 07:20 ABG pH 7.410 (7.35-7.45) 10/10/22 07:20 ABG pCO2 56.0 mmHg (35.0-45.0) H* 10/10/22 07:20 ABG pO2 54.0 mmHg (80.0-100.0) L 10/10/22 07:20 ABG HCO3 35.5 mmol/L (22-26) H* 10/10/22 07:20 ABG O2 Saturation 88.0 % (90-100) L 10/10/22 07:20 ABG Base Excess 9.1 mmol/L (-2.0-2.0) H 10/10/22 07:20 Henrry Test Pos 10/10/22 07:20 A-a Gradient 26.0 mmHg 10/10/22 07:20 FiO2 21 10/10/22 07:20 Blood Gas Comments Pt rush well cdn 10/10/22 07:20 Sodium 140 mmol/L (136-145) 10/10/22 04:32 Corrected Sodium TNP 10/10/22 04:32 Potassium 4.0 mmol/L (3.5-5.1) 10/10/22 04:32 Chloride 102 mmol/L (98-107) 10/10/22 04:32 Carbon Dioxide 33.5 mmol/L (21-32) H 10/10/22 04:32 BUN 31 mg/dL (7-18) H 10/10/22 04:32 Creatinine 0.86 mg/dL (0.55-1.02) 10/10/22 04:32 Est GFR (MDRD) Af Amer > 60 (>60) 10/10/22 04:32 Est GFR (MDRD) Non-Af > 60 (>60) 10/10/22 04:32 Glucose 84 mg/dL (65-99) 10/10/22 04:32 Calcium 8.7 mg/dL (8.5-10.1) 10/10/22 04:32 Corrected Calcium 9.3 mg/dL (8.5-10.1) 10/10/22 04:32 Magnesium 2.2 mg/dL (2.0-2.9) 10/08/22 04:51 Total Bilirubin 0.20 mg/dL (0.2-1.0) 10/10/22 04:32 AST 15 Units/L (15-37) 10/10/22 04:32 ALT 17 Units/L (12-78) 10/10/22 04:32 Alkaline Phosphatase 62 Units/L (46-116) 10/10/22 04:32 B-Natriuretic Peptide 297 pg/mL (0-79) H 10/10/22 04:32 Total Protein 6.5 g/dL (6.4-8.2) 10/10/22 04:32 Albumin 3.3 g/dL (3.4-5.0) L 10/10/22 04:32 Globulin 3.2 g/dL (2.5-4.5) 10/10/22 04:32 Albumin/Globulin Ratio 1.0 Ratio (1.1-2.1) L 10/10/22 04:32 SARS-CoV-2 (PCR) Negative (NEGATIVE) 10/07/22 08:02 Influenza Type A (PCR) Negative (NEGATIVE) 10/07/22 08:02 Influenza Type B (PCR) Negative (NEGATIVE) 10/07/22 08:02 RSV (PCR) Negative (NEGATIVE) 10/07/22 08:02 - Plan (1) Hypoxia Status: Acute Plan: SUPPLEMENTAL O2. DUO NEBS, IV SOLU MEDROL. BLOOD PRESSURE CONTROL, EKG MONITORING. CE ON ADMISSION. REPEAT AM CXR, CONTINUING HOME MEDICATION. RESP SWAB ON ADMISSION (2) COPD (chronic obstructive pulmonary disease) Status: Acute (3) Hypertension Status: Acute (4) CAD (coronary artery disease) Status: Acute (5) Hypertensive urgency Status: Acute
[2022-10-10] MEDS: PriLOSEC PO SCH (21:07)
[2022-10-11] MEDS: DUONEB 0.5 MG/3 MG (3 mL) NEB SCH ×2 (00:04→05:28)
[2022-10-11] MEDS: REQUIP PO SCH (05:10)
[2022-10-11 05:30] LABS: BASOPHILS # (AUTO) 0.1 X10^3/uL (0.0-0.1); BASOPHILS % (AUTO) 0.6 % (0.2-1.0); EOSINOPHILS # (AUTO) 0.1 x10^3/uL (0.0-0.2); EOSINOPHILS % (AUTO) 0.6 % (0.9-2.9); HEMATOCRIT 29.6 % (36.0-47.0); LYMPHOCYTES # (AUTO) 1.8 X10^3/uL (1.3-2.9); LYMPHOCYTES % (AUTO) 16.1 % (21.0-51.0); MEAN CORPUSCULAR HEMOGLOBIN 29.2 pg (27.0-34.0); MEAN CORPUSCULAR HGB CONC 33.9 g/dL (33.0-35.0); MEAN CORPUSCULAR VOLUME 86.3 fL (80.0-100.0); MEAN PLATELET VOLUME 8.8 fL (7.4-11.0); MONOCYTES # (AUTO) 1.1 x10^3/uL (0.3-0.8); MONOCYTES % (AUTO) 9.5 % (0.0-13.0); NEUTROPHILS # (AUTO) 8.4 x10^3/uL (2.2-4.8); NEUTROPHILS % (AUTO) 73.2 % (42.0-75.0); PLATELET COUNT 359 X10^3/uL (150.0-450.0); RED BLOOD COUNT 3.43 X10^6/uL (3.5-5.4); RED CELL DISTRIBUTION WIDTH 15.2 % (11.6-16.5); WHITE BLOOD COUNT 11.4 X10^3/uL (3.6-10.0)
[2022-10-11 05:33] LABS: ALANINE AMINOTRANSFERASE 15 Units/L (12-78); ALBUMIN 3.1 g/dL (3.4-5.0); ALKALINE PHOSPHATASE 60 Units/L (46-116); ASPARTATE AMINO TRANSFERASE 15 Units/L (15-37); BLOOD UREA NITROGEN 33 mg/dL (7-18); CALCIUM 8.8 mg/dL (8.5-10.1); CARBON DIOXIDE 35.5 mmol/L (21-32); CHLORIDE 102 mmol/L (98-107); COR CA(FOR HYPOALB) 9.5 mg/dL (8.5-10.1); GLUCOSE 96 mg/dL (65-99); POTASSIUM 4.2 mmol/L (3.5-5.1); SODIUM 139 mmol/L (136-145); TOTAL PROTEIN 6.2 g/dL (6.4-8.2); eGFR NON BLACK RACES 52 (>60)
[2022-10-11 05:40] LABS: ABG BASE EXCESS 8.7 mmol/L (-2.0-2.0)
[2022-10-11 05:41] LABS: ABG ALLEN TEST POS; ABG HCO3 35.3 mmol/L (22-26)
[2022-10-11] MEDS: ULTRAM PO PRN (06:18)
[2022-10-11] MEDS: COREG TAB 12.5 MG PO SCH (08:26)
[2022-10-11] MEDS: PROCARDIA XL 24-hr PO SCH (08:26)
[2022-10-11] MEDS: K-DUR TAB 20 MEQ PO SCH (08:26)
[2022-10-11] MEDS: COZAAR PO SCH (08:26)
[2022-10-11] MEDS: SOLU-Medrol 40 MG VIAL IVP SCH (08:27)
[2022-10-11] MEDS: LOVENOX INJ 30 MG SYR SC SCH (08:27)
[2022-10-11] MEDS: LASIX IVP SCH (08:27)
[2022-10-11] MEDS: ROBITUSSIN DM PO SCH (08:27)
[2022-10-11] MEDS: LEVAQUIN PREMIX IV 500 MG 500 MG/100 ML BAG IV SCH (08:27)
[2022-10-11] MEDS: PULMICORT NEB TX 0.5 MG NEB SCH (08:30)
[2022-10-11 08:38] VITALS: PULSE 68; TEMP 98
--- NOTE | 2022-10-11 09:45 | RAD ---
HISTORYSOB COPDSTUDYAP chestCOMPARISONAugust 2022FINDINGSMild cardiomegaly, accentuated by nonstandard projection and less than optimal inspiration. External pacing device again noted. There is no evidence for pulmonary edema, pneumonia or pleural effusion.IMPRESSIONNo acute chest findings. See above.Electronically signed by: CHRISTIAN HARTMANN (Oct 11, 2022 09:44:04)
[2022-10-11 10:32] VITALS: BP 158/67; RESP 21; O2SAT 100
== END 2022-10-11 10:39 | disposition home or self-care (01) | DRG 192 ==
LOC: ICU
PROVIDERS: ADMIT Internal Medicine; ATTEND Internal Medicine
DX: Z20.822 Contact with and (suspected) exposure to COVID-19; M19.90 Unspecified osteoarthritis, unspecified site; R09.02 Hypoxemia; J44.1 Chronic obstructive pulmonary disease with (acute) exacerbation; G47.33 Obstructive sleep apnea (adult) (pediatric); B96.89 Other specified bacterial agents as the cause of diseases classified elsewhere; I10 Essential (primary) hypertension; F41.8 Other specified anxiety disorders; I16.0 Hypertensive urgency; E78.2 Mixed hyperlipidemia; R06.02 Shortness of breath; Z66 Do not resuscitate

== ENCOUNTER 2023-06-25 15:33 | Inpatient (IN) ==
[2023-06-25] MEDS: DUONEB 0.5 MG/3 MG (3 mL) NEB SCH (17:21)
--- NOTE | 2023-06-25 17:23 | EKG ---
Test Reason : chest pain Blood Pressure : */* mmHG Vent. Rate : 75 BPM Atrial Rate : 75 BPM P-R Int : 142 ms QRS Dur : 110 ms QT Int : 432 ms P-R-T Axes : 47 26 139 degrees QTc Int : 482 ms Sinus rhythm with marked sinus arrhythmia with occasional premature ventricular complexes Left ventricular hypertrophy with repolarization abnormality ( Eladio product ) Abnormal ECG When compared with ECG of 05-MAR-2023 17:14, premature ventricular complexes are now present [id number]-Ggdcb is no longer present Confirmed by Zelalem Lopez MD ([id number]) on 06/26/2023 7:38:35 AM Referred By: Confirmed By: Zelalem Lopez MD
[2023-06-25 17:43] VITALS: BMI 31.8
[2023-06-25 17:46] LABS: BASOPHILS # (AUTO) 0.1 X10^3/uL (0.0-0.1); BASOPHILS % (AUTO) 0.9 % (0.2-1.0); EOSINOPHILS # (AUTO) 1.1 x10^3/uL (0.0-0.2); EOSINOPHILS % (AUTO) 8.2 % (0.9-2.9); HEMATOCRIT 24.2 % (36.0-47.0); LYMPHOCYTES # (AUTO) 1.1 X10^3/uL (1.3-2.9); LYMPHOCYTES % (AUTO) 8.6 % (21.0-51.0); MEAN CORPUSCULAR HEMOGLOBIN 28.7 pg (27.0-34.0); MEAN CORPUSCULAR VOLUME 86.8 fL (80.0-100.0); MEAN PLATELET VOLUME 8.4 fL (7.4-11.0); MONOCYTES # (AUTO) 0.9 x10^3/uL (0.3-0.8); MONOCYTES % (AUTO) 6.7 % (0.0-13.0); NEUTROPHILS # (AUTO) 9.9 x10^3/uL (2.2-4.8); NEUTROPHILS % (AUTO) 75.6 % (42.0-75.0); PLATELET COUNT 293 X10^3/uL (150.0-450.0); RED BLOOD COUNT 2.79 X10^6/uL (3.5-5.4); RED CELL DISTRIBUTION WIDTH 17.3 % (11.6-16.5); WHITE BLOOD COUNT 13.1 X10^3/uL (3.6-10.0)
[2023-06-25 17:47] LABS: ABG BASE EXCESS 3.9 mmol/L (-2.0-2.0); ABG HCO3 27.7 mmol/L (22-26)
[2023-06-25 17:48] LABS: ABG ALLEN TEST POS
[2023-06-25] MEDS: PROTONIX INJ 40 MG VIAL IVP SCH (17:54)
[2023-06-25] MEDS: NS 1,000 ML IV 1,000 ML IV SCH (17:56)
[2023-06-25 17:59] LABS: ALBUMIN 2.9 g/dL (3.4-5.0); CALCIUM 8.9 mg/dL (8.5-10.1); CARBON DIOXIDE 29.7 mmol/L (21-32); COR CA(FOR HYPOALB) 9.8 mg/dL (8.5-10.1); CREATININE 1.45 mg/dL (0.55-1.02); POTASSIUM 4.6 mmol/L (3.5-5.1); TOTAL PROTEIN 6.9 g/dL (6.4-8.2)
[2023-06-25] MEDS ORDERED: MORPHINE SULFATE INJ 2 MG INJ IVP PRN (18:46)
--- NOTE | 2023-06-25 19:17 | CT ---
EXAM:CTA, CHESTHISTORY:SOB;COMPARISON:06/26/2022 br.br.br.br with 75 mL Omnipaque 300 IV contrast. Sagittal and coronal 3D volume rendered vascular MIP reformatted images submitted. Coronal and sagittal images were reconstructed. Dose reduction techniques included Automated Exposure Control (AEC) and adjustment of mA and kV.FINDINGS:Visualized thyroid gland unremarkable.No pleural or pericardial effusion.The heart is enlarged with left atrial appendage closure device evident.No pulmonary embolus.No thoracic aortic aneurysm or dissection.Upper abdomen shows cholelithiasis.Bones show no lytic or destructive process with multilevel thoracic spondylosis evident.Right anterior vagal stimulator noted in the field of view.The lungs have dependent atelectasis and there is mild septal thickening in the upper lobes and some scattered nodular infiltrates in each upper lobe as well and minimal atelectasis in the right middle lobe. Small left fissural nodule noted presumably reactive 3 mm.Mediastinal and hilar adenopathy evident with right hilar node measuring up to 10 mm short axis diameter and anterior mediastinal node measuring up to 13 mm short axis diameter. This adenopathy appears similar to prior.IMPRESSION:1. No pulmonary embolus.2. Cardiomegaly with suggestion of mild pulmonary edema with septal thickening. In addition, there does appear to be superimposed patchy bronchopneumonia in each upper lobe and small nodule densities which may be inflammatory infectious but will need follow-up. Consider CT follow-up in 6 months, these are new since prior.3. Mediastinal and hilar adenopathy, not significantly changed since prior, there may be reactive component but recommend clinical correlation and recommend attention to these lymph nodes at follow-up.4. Cholelithiasis.THIS IS AN ELECTRONICALLY VERIFIED FINAL REPORT06/25/2023 7:13 PM - Electronically signed by Beni Wallace MD
[2023-06-25] MEDS: PULMICORT NEB TX 0.5 MG NEB SCH (20:09)
[2023-06-26 05:33] LABS: BASOPHILS % (AUTO) 0.4 % (0.2-1.0); EOSINOPHILS # (AUTO) 1.4 x10^3/uL (0.0-0.2); EOSINOPHILS % (AUTO) 10.2 % (0.9-2.9); HEMATOCRIT 24.8 % (36.0-47.0); HEMOGLOBIN 8.3 g/dL (12.0-16.0); LYMPHOCYTES # (AUTO) 0.7 X10^3/uL (1.3-2.9); LYMPHOCYTES % (AUTO) 5.2 % (21.0-51.0); MEAN CORPUSCULAR HEMOGLOBIN 28.7 pg (27.0-34.0); MEAN CORPUSCULAR HGB CONC 33.3 g/dL (33.0-35.0); MEAN CORPUSCULAR VOLUME 86.2 fL (80.0-100.0); MEAN PLATELET VOLUME 8.1 fL (7.4-11.0); MONOCYTES # (AUTO) 0.8 x10^3/uL (0.3-0.8); MONOCYTES % (AUTO) 5.7 % (0.0-13.0); NEUTROPHILS # (AUTO) 10.8 x10^3/uL (2.2-4.8); NEUTROPHILS % (AUTO) 78.5 % (42.0-75.0); PLATELET COUNT 303 X10^3/uL (150.0-450.0); RED BLOOD COUNT 2.88 X10^6/uL (3.5-5.4); RED CELL DISTRIBUTION WIDTH 17.6 % (11.6-16.5); WHITE BLOOD COUNT 13.7 X10^3/uL (3.6-10.0)
[2023-06-26 05:59] LABS: ALBUMIN 2.8 g/dL (3.4-5.0); CALCIUM 8.9 mg/dL (8.5-10.1); CARBON DIOXIDE 30.6 mmol/L (21-32); COR CA(FOR HYPOALB) 9.9 mg/dL (8.5-10.1); CREATININE 1.36 mg/dL (0.55-1.02); POTASSIUM 3.7 mmol/L (3.5-5.1); TOTAL PROTEIN 6.9 g/dL (6.4-8.2)
--- NOTE | 2023-06-26 06:18 | RAD ---
EXAM: Portable chest HISTORY: Shortness of breath COMPARISON: 02/25/2023 FINDINGS: There is a pacemaker present on the right obscuring a portion of the right mid lung. Heart is enla rged. No definite congestive heart failure is identified. No acute alveolar infiltrates or pleural effusions are identified. Bony thorax is unremarkable. IMPRESSION: Cardiomegaly without congestive heart failure No acute infiltrates THIS IS AN ELECTRONICALLY VERIFIED FINAL REPORT 06/26/2023 6:15 AM - Electronically signed by Gene Otero MD
[2023-06-26] MEDS ORDERED: CONSULT PHARMACY - POTASSIUM & MAGNESIUM XX SCH (07:00)
[2023-06-26] MEDS: DUONEB 0.5 MG/3 MG (3 mL) NEB ONE ×2 (08:13→08:14)
[2023-06-26] MEDS: OMNIPAQUE 350 mg/mL 100 mL BTL 100 ML ONE (08:13)
[2023-06-26] MEDS: PULMICORT NEB TX 0.5 MG NEB ONE (08:14)
[2023-06-26] MEDS: MAG-OX TAB PO SCH (08:50)
[2023-06-26] MEDS: HEMOCYTE-PLUS PO SCH (10:11)
[2023-06-26] MEDS: NORVASC TAB 10 MG PO SCH (10:11)
[2023-06-26] MEDS: LASIX IVP SCH (10:11)
[2023-06-26] MEDS: COZAAR PO SCH (10:12)
[2023-06-26] MEDS: COREG TAB 12.5 MG PO SCH (10:12)
[2023-06-26] MEDS: K-DUR TAB 20 MEQ PO SCH (10:12)
[2023-06-26] MEDS: TUSSIONEX PENNKINETIC SUSP PO PRN (16:31)
[2023-06-26] MEDS: ZOFRAN INJ 4 MG VIAL IVP PRN (16:31)
--- NOTE | 2023-06-26 17:11 | DR.H&P ---
H&P History & Physical for Day of: H&P Date: 06/25/23 Chief Complaint Chief Complaint: sob, "feel like an elephant is sitting on my chest" Allergies Allergies Allergy/AdvReac Type Severity Reaction Status Date / Time codeine AdvReac Unknown Verified 06/25/23 17:20 History of Present Illness History of Present Illness: PT IS 72 WF, DIRECT ADMIT FROM DR BUSTOS OFFICE WITH CO SOB, CHEST PRESSURE AND PAIN IN RIBS X 2 DAYS. PT HAS PMH OF CAD, HTN, CHF, ANEMIA, GERD, FLOWER, OA AND PULMONARY HTN. PT IS CONTINUOUS SUPPLEMENTAL O2 WITHOUT IMPROVEMENT. PT ADMITTED FOR TREATMENT AND EVALUATION OF ACUTE ILLNESS. PT WAS TESTED FOR COVID 19 AND INFLUENZA A &B IN OUR OFFICE AND TESTED NEGATIVE. Past Medical History Past Medical History: Anxiety, Arthritis, COPD, Coronary Artery Disease, GERD and Hypertension Past Surgical History Surgical History: Angioplasty/Stents, Hysterectomy, Ortho Surgery and Other Family History Family Medical History: Diabetes Mellitus, Cancer, MT and Hypertension Social History Does patient currently use any type of tobacco product: No Type of Tobacco Use: None Does any household member use tobacco: Yes Alcohol Use: None Drug Use: None Medications Home Medications: Home Medications Medication Instructions Recorded Confirmed Type amlodipine 5 mg tablet 10 mg PO QDAY 06/26/22 06/25/23 History carvedilol 12.5 mg tablet 12.5 mg PO BID 06/26/22 06/25/23 History citalopram 40 mg tablet 40 mg PO HS 06/26/22 06/25/23 History losartan 50 mg tablet 50 mg PO QDAY 06/26/22 06/25/23 History potassium chloride 10 mEq 10 meq PO QAM 06/26/22 06/25/23 History capsule,extended release ropinirole 2 mg tablet 2 mg PO BID 06/26/22 06/25/23 History cyanocobalamin (vitamin B-12) 1,000 mcg PO QDAY 10/06/22 06/25/23 History 1,000 mcg tablet atorvastatin 80 mg tablet 10 mg PO QAM 06/25/23 06/25/23 History fenofibrate 160 mg tablet 160 mg PO QPM 06/25/23 06/25/23 History hydrochlorothiazide 25 mg tablet 25 mg PO QAM 06/25/23 06/25/23 History multivit-minerals no.73-iron 1 cap PO HS 06/25/23 06/25/23 History fumarate 106 mg-folic acid 1 mg capsule (Hemocyte-Plus) pantoprazole 40 mg tablet,delayed 40 mg PO BID 06/25/23 06/25/23 History release spironolactone 25 mg tablet 25 mg PO QAM 06/25/23 06/25/23 History Labs 06/26/23 05:15 06/26/23 05:15 Labs: Laboratory WBC 13.7 X10^3/uL (3.6-10.0) H 06/26/23 05:15 RBC 2.88 X10^6/uL (3.5-5.4) L 06/26/23 05:15 Hgb 8.3 g/dL (12.0-16.0) L 06/26/23 05:15 Hct 24.8 % (36.0-47.0) L 06/26/23 05:15 MCV 86.2 fL (80.0-100.0) 06/26/23 05:15 MCH 28.7 pg (27.0-34.0) 06/26/23 05:15 MCHC 33.3 g/dL (33.0-35.0) 06/26/23 05:15 RDW 17.6 % (11.6-16.5) H 06/26/23 05:15 Plt Count 303 X10^3/uL (150.0-450.0) 06/26/23 05:15 MPV 8.1 fL (7.4-11.0) 06/26/23 05:15 Neut % (Auto) 78.5 % (42.0-75.0) H 06/26/23 05:15 Lymph % (Auto) 5.2 % (21.0-51.0) L 06/26/23 05:15 [place] % (Auto) 5.7 % (0.0-13.0) 06/26/23 05:15 Eos % (Auto) 10.2 % (0.9-2.9) H 06/26/23 05:15 Baso % (Auto) 0.4 % (0.2-1.0) 06/26/23 05:15 Neut # (Auto) 10.8 x10^3/uL (2.2-4.8) H 06/26/23 05:15 Lymph # (Auto) 0.7 X10^3/uL (1.3-2.9) L 06/26/23 05:15 [place] # (Auto) 0.8 x10^3/uL (0.3-0.8) 06/26/23 05:15 Eos # (Auto) 1.4 x10^3/uL (0.0-0.2) H 06/26/23 05:15 Baso # (Auto) 0.0 X10^3/uL (0.0-0.1) 06/26/23 05:15 Absolute Nucleated RBC 0.0 /100WBC 06/26/23 05:15 D-Dimer 1.04 ug/ml (0.0-0.57) H 06/25/23 16:55 Sample Site Rrad 06/25/23 17:37 ABG pH 7.470 (7.35-7.45) H 06/25/23 17:37 ABG pCO2 38.0 mmHg (35.0-45.0) 06/25/23 17:37 ABG pO2 68.0 mmHg (80.0-100.0) L 06/25/23 17:37 ABG HCO3 27.7 mmol/L (22-26) H 06/25/23 17:37 ABG O2 Saturation 94.0 % (90-100) 06/25/23 17:37 ABG Base Excess 3.9 mmol/L (-2.0-2.0) H 06/25/23 17:37 Henrry Test Pos 06/25/23 17:37 A-a Gradient 34.0 mmHg 06/25/23 17:37 FiO2 21.0 06/25/23 17:37 Blood Gas Comments Avinash well ms 06/25/23 17:37 Sodium 142 mmol/L (136-145) 06/26/23 05:15 Corrected Sodium 142 mmol/L (136-145) 06/26/23 05:15 Potassium 3.7 mmol/L (3.5-5.1) 06/26/23 05:15 Chloride 104 mmol/L (98-107) 06/26/23 05:15 Carbon Dioxide 30.6 mmol/L (21-32) 06/26/23 05:15 BUN 22 mg/dL (7-18) H 06/26/23 05:15 Creatinine 1.36 mg/dL (0.55-1.02) H 06/26/23 05:15 Est GFR (MDRD) Af Amer 49 (>60) L 06/26/23 05:15 Est GFR (MDRD) Non-Af 40 (>60) L 06/26/23 05:15 Glucose 115 mg/dL (65-99) H 06/26/23 05:15 Calcium 8.9 mg/dL (8.5-10.1) 06/26/23 05:15 Corrected Calcium 9.9 mg/dL (8.5-10.1) 06/26/23 05:15 Magnesium 1.9 mg/dL (2.0-2.9) L 06/26/23 05:15 Total Bilirubin 0.50 mg/dL (0.2-1.0) 06/26/23 05:15 AST 20 Units/L (15-37) 06/26/23 05:15 ALT 21 Units/L (12-78) 06/26/23 05:15 Alkaline Phosphatase 42 Units/L (46-116) L 06/26/23 05:15 Creatine Kinase 50 Units/L (26-192) 06/26/23 05:15 Troponin I High Sens 59.2 ng/L (4.0-60.0) 06/26/23 05:15 Total Protein 6.9 g/dL (6.4-8.2) 06/26/23 05:15 Albumin 2.8 g/dL (3.4-5.0) L 06/26/23 05:15 Globulin 4.1 g/dL (2.5-4.5) 06/26/23 05:15 Albumin/Globulin Ratio 0.7 Ratio (1.1-2.1) L 06/26/23 05:15 Blood Type O POSITIVE 06/25/23 18:05 Antibody Screen Negative 06/25/23 18:05 Review of Systems Constitutional: Weakness Eyes: No Symptoms Reported ENT: No Symptoms Reported Respiratory: Cough, Shortness of Breath and SOB with Excertion Cardiovascular: Other (CHEST PRESSURE) Gastrointestinal: Nausea Genitourinary: No Symptoms Reported Musculoskeletal: Back Pain Skin: No Symptoms Reported Neurological: Weakness Physical Exam Vital Signs: Vital Signs Temperature 98.4 F Temperature 97.3 F Pulse Rate [Apical] 73 Pulse Rate [Apical] 68 Pulse Rate 81 Respiratory Rate 22 Respiratory Rate 20 Blood Pressure [Left Arm] 139/56 Blood Pressure [Left Arm] 107/51 O2 Sat by Pulse Oximetry 98 O2 Sat by Pulse Oximetry 97 O2 Sat by Pulse Oximetry 97 Oriented: Normal Eyes: Normal Ear: Normal Nose: Normal Throat: Dry Respiratory: Diminished Throughout Cardiovascular: Tachycardia and Murmur Auscultation: Bowel Sounds: Normal Palpation: Normal Tenderness: Normal Skin: Decreased Turgur Musculoskeletal: Back:Thoracic and Back:Lumbar Mood Description: Anxious Affect: Anxious Speech Pattern: Clear Assessment/Plan (1) Chest pain: Qualifiers: Chest pain type: unspecified Qualified Code(s): R07.9 - Chest pain, unspecified Narrative Support Text: ADMIT, ICU CE AND EKG, CXR ON ADMISSION DDIMER, VERIFY HOME MEDICATIONS SUPPLEMENTAL O2, RESP THERAPY STRICT I&OS ABG ON ADMISSION, TELEMETRY BP CONTROL Status: Acute (2) CHF (congestive heart failure): Status: Acute (3) CAD (coronary artery disease): Status: Acute (4) Hypoxia: Status: Acute (5) Hypertension: Status: Acute (6) COPD (chronic obstructive pulmonary disease): Status: Acute
--- NOTE | 2023-06-26 17:16 | PCM.PROG ---
Progress Note Progress Note for Day of Date of Exam: 06/26/23 Subjective Subjective: PT IS 72 WF, DIRECT ADMIT FROM DR BUSTAMANTE OFFICE WITH RESPIRATORY DISTRESS AND CHEST PRESSURE. PT HAS PMH OF CAD, PULM HTN, CHF, AND ANEMIA WITH GI BLEED IN MARCH. PT WAS HYPOXIC ON ADMISSION ABG WITH PO2 IN 60S. PT HAS ELEVATED BNP ON ADMISSION AND DDIMER. CTA OF CHEST WAS OBTAINED TO RO PE, WHICH REVEALED PULMONARY CONGESTION, EDEMA, PNEUMONIA AND NEGATIVE FOR A PE. PT HGB WAS 8.3 THIS, WE RESUMED HER PO IRON REPLACEMENT THERAPY. PT WAS STARTED ON LASIX 40MG IV BID WITH POTASSIUM REPLACEMENT AND LOUIS CATH FOR STRICT I&OS. PT STATES SHE DID NOT SLEEP ANY LAST NIGHT DUE TO SOB AND ANXIETY. BUN 22, CREAT 1.36 ON AM LABS. Past Medical Family Social History Allergies: Allergies codeine Adverse Reaction (Unknown, Verified 06/25/23 17:20) Vital Signs and I&O's Vital Signs: Vital Signs Temperature 98.4 F Temperature 97.3 F Pulse Rate [Apical] 73 Pulse Rate [Apical] 68 Respiratory Rate 22 Respiratory Rate 20 Blood Pressure [Left Arm] 139/56 Blood Pressure [Left Arm] 107/51 O2 Sat by Pulse Oximetry 98 O2 Sat by Pulse Oximetry 97 Intake and Output: Intake & Output 06/24/23 06/25/23 06/26/23 06/27/23 11:59 11:59 11:59 11:59 Intake Total 803 / 803 1046 / 1046 Output Total 525 / 525 500 / 500 Balance 278 / 278 546 / 546 Physical Exam Oriented: Normal Eyes: Normal Ear: Normal Nose: Normal Throat: Dry Cardiovascular: Tachycardia and Murmur Auscultation: Bowel Sounds: Normal Tenderness: Normal Skin: Decreased Turgur Musculoskeletal: Back:Thoracic and Back:Lumbar Mood Description: Anxious Affect: Anxious Speech Pattern: Clear Laboratory and Diagnostics 06/26/23 05:15 06/26/23 05:15 Labs: Laboratory WBC 13.7 X10^3/uL (3.6-10.0) H 06/26/23 05:15 RBC 2.88 X10^6/uL (3.5-5.4) L 06/26/23 05:15 Hgb 8.3 g/dL (12.0-16.0) L 06/26/23 05:15 Hct 24.8 % (36.0-47.0) L 06/26/23 05:15 MCV 86.2 fL (80.0-100.0) 06/26/23 05:15 MCH 28.7 pg (27.0-34.0) 06/26/23 05:15 MCHC 33.3 g/dL (33.0-35.0) 06/26/23 05:15 RDW 17.6 % (11.6-16.5) H 06/26/23 05:15 Plt Count 303 X10^3/uL (150.0-450.0) 06/26/23 05:15 MPV 8.1 fL (7.4-11.0) 06/26/23 05:15 Neut % (Auto) 78.5 % (42.0-75.0) H 06/26/23 05:15 Lymph % (Auto) 5.2 % (21.0-51.0) L 06/26/23 05:15 [place] % (Auto) 5.7 % (0.0-13.0) 06/26/23 05:15 Eos % (Auto) 10.2 % (0.9-2.9) H 06/26/23 05:15 Baso % (Auto) 0.4 % (0.2-1.0) 06/26/23 05:15 Neut # (Auto) 10.8 x10^3/uL (2.2-4.8) H 06/26/23 05:15 Lymph # (Auto) 0.7 X10^3/uL (1.3-2.9) L 06/26/23 05:15 [place] # (Auto) 0.8 x10^3/uL (0.3-0.8) 06/26/23 05:15 Eos # (Auto) 1.4 x10^3/uL (0.0-0.2) H 06/26/23 05:15 Baso # (Auto) 0.0 X10^3/uL (0.0-0.1) 06/26/23 05:15 Absolute Nucleated RBC 0.0 /100WBC 06/26/23 05:15 D-Dimer 1.04 ug/ml (0.0-0.57) H 06/25/23 16:55 Sample Site Rrad 06/25/23 17:37 ABG pH 7.470 (7.35-7.45) H 06/25/23 17:37 ABG pCO2 38.0 mmHg (35.0-45.0) 06/25/23 17:37 ABG pO2 68.0 mmHg (80.0-100.0) L 06/25/23 17:37 ABG HCO3 27.7 mmol/L (22-26) H 06/25/23 17:37 ABG O2 Saturation 94.0 % (90-100) 06/25/23 17:37 ABG Base Excess 3.9 mmol/L (-2.0-2.0) H 06/25/23 17:37 Henrry Test Pos 06/25/23 17:37 A-a Gradient 34.0 mmHg 06/25/23 17:37 FiO2 21.0 06/25/23 17:37 Blood Gas Comments Avinash well ms 06/25/23 17:37 Sodium 142 mmol/L (136-145) 06/26/23 05:15 Corrected Sodium 142 mmol/L (136-145) 06/26/23 05:15 Potassium 3.7 mmol/L (3.5-5.1) 06/26/23 05:15 Chloride 104 mmol/L (98-107) 06/26/23 05:15 Carbon Dioxide 30.6 mmol/L (21-32) 06/26/23 05:15 BUN 22 mg/dL (7-18) H 06/26/23 05:15 Creatinine 1.36 mg/dL (0.55-1.02) H 06/26/23 05:15 Est GFR (MDRD) Af Amer 49 (>60) L 06/26/23 05:15 Est GFR (MDRD) Non-Af 40 (>60) L 06/26/23 05:15 Glucose 115 mg/dL (65-99) H 06/26/23 05:15 Calcium 8.9 mg/dL (8.5-10.1) 06/26/23 05:15 Corrected Calcium 9.9 mg/dL (8.5-10.1) 06/26/23 05:15 Magnesium 1.9 mg/dL (2.0-2.9) L 06/26/23 05:15 Total Bilirubin 0.50 mg/dL (0.2-1.0) 06/26/23 05:15 AST 20 Units/L (15-37) 06/26/23 05:15 ALT 21 Units/L (12-78) 06/26/23 05:15 Alkaline Phosphatase 42 Units/L (46-116) L 06/26/23 05:15 Creatine Kinase 50 Units/L (26-192) 06/26/23 05:15 Troponin I High Sens 59.2 ng/L (4.0-60.0) 06/26/23 05:15 Total Protein 6.9 g/dL (6.4-8.2) 06/26/23 05:15 Albumin 2.8 g/dL (3.4-5.0) L 06/26/23 05:15 Globulin 4.1 g/dL (2.5-4.5) 06/26/23 05:15 Albumin/Globulin Ratio 0.7 Ratio (1.1-2.1) L 06/26/23 05:15 Blood Type O POSITIVE 06/25/23 18:05 Antibody Screen Negative 06/25/23 18:05 Plan (1) CHF (congestive heart failure): Status: Acute Narrative Support Text: IV LASIX WITH STRICT I&OS WITH LOUIS CATH PLACEMENT CONTINUE RESP THERAPY AND SUPPLEMENTAL O2 REPEAT AM CXR BP CONTROL, PAIN CONTROL REPEAT AM BNP (2) Chest pain: Status: Acute Qualifiers: Chest pain type: unspecified Qualified Code(s): R07.9 - Chest pain, unspecified (3) CAD (coronary artery disease): Status: Acute (4) Hypoxia: Status: Acute (5) Hypertension: Status: Acute (6) COPD (chronic obstructive pulmonary disease): Status: Acute
[2023-06-26] MEDS: TRICOR TAB 160 MG PO SCH (21:39)
[2023-06-26] MEDS: REQUIP PO SCH (21:39)
[2023-06-26] MEDS: CELEXA PO SCH (21:39)
[2023-06-26] MEDS: TESSALON PERLES PO SCH (21:40)
[2023-06-26] MEDS: K-DUR TAB 20 MEQ PO ONE (21:41)
[2023-06-27 05:42] LABS: BASOPHILS # (AUTO) 0.1 X10^3/uL (0.0-0.1); EOSINOPHILS # (AUTO) 1.2 x10^3/uL (0.0-0.2); EOSINOPHILS % (AUTO) 10.4 % (0.9-2.9); HEMATOCRIT 23.2 % (36.0-47.0); HEMOGLOBIN 7.6 g/dL (12.0-16.0); LYMPHOCYTES # (AUTO) 0.7 X10^3/uL (1.3-2.9); LYMPHOCYTES % (AUTO) 6.3 % (21.0-51.0); MEAN CORPUSCULAR HEMOGLOBIN 28.3 pg (27.0-34.0); MEAN CORPUSCULAR HGB CONC 32.8 g/dL (33.0-35.0); MEAN CORPUSCULAR VOLUME 86.2 fL (80.0-100.0); MEAN PLATELET VOLUME 8.3 fL (7.4-11.0); MONOCYTES # (AUTO) 0.9 x10^3/uL (0.3-0.8); MONOCYTES % (AUTO) 8.1 % (0.0-13.0); NEUTROPHILS # (AUTO) 8.4 x10^3/uL (2.2-4.8); NEUTROPHILS % (AUTO) 74.2 % (42.0-75.0); PLATELET COUNT 280 X10^3/uL (150.0-450.0); RED CELL DISTRIBUTION WIDTH 16.7 % (11.6-16.5); WHITE BLOOD COUNT 11.3 X10^3/uL (3.6-10.0)
[2023-06-27 05:46] LABS: BLOOD UREA NITROGEN 29 mg/dL (7-18); CALCIUM 8.6 mg/dL (8.5-10.1); CARBON DIOXIDE 30.3 mmol/L (21-32); CHLORIDE 104 mmol/L (98-107); CREATININE 2.17 mg/dL (0.55-1.02); GLUCOSE 110 mg/dL (65-99); POTASSIUM 4.3 mmol/L (3.5-5.1); SODIUM 142 mmol/L (136-145); eGFR NON BLACK RACES 24 (>60)
[2023-06-27 06:02] LABS: ALANINE AMINOTRANSFERASE 17 Units/L (12-78); ALBUMIN 2.4 g/dL (3.4-5.0); ALKALINE PHOSPHATASE 38 Units/L (46-116); ASPARTATE AMINO TRANSFERASE 16 Units/L (15-37); COR CA(FOR HYPOALB) 9.9 mg/dL (8.5-10.1); MAGNESIUM 1.9 mg/dL (2.0-2.9); TOTAL PROTEIN 6.3 g/dL (6.4-8.2)
[2023-06-27] MEDS ORDERED: CONSULT PHARMACY - POTASSIUM & MAGNESIUM XX SCH (07:00)
[2023-06-27] MEDS: LIPITOR TAB 10 MG PO SCH (08:44)
[2023-06-27] MEDS: MAG-OX TAB PO SCH (08:44)
[2023-06-27] MEDS: MICRO K EXTEN CAP 10 MEQ PO SCH (08:44)
[2023-06-27] MEDS: ALDACTONE TAB 25 MG PO SCH (08:44)
[2023-06-27] MEDS ORDERED: LIPITOR TAB 80 MG PO SCH (09:00)
[2023-06-27] MEDS: ROCEPHIN VIAL 1 GRAM 1 G in NS 100 ML IV 100 ML IV SCH (10:01)
[2023-06-27] MEDS: NS 250 ML IV 250 ML IV ONE (11:05)
--- NOTE | 2023-06-27 13:06 | RAD ---
EXAM: CHEST HISTORY: chf, pneumonia; sob COMPARISON: June 25, 2023. TECHNIQUE: Frontal view of the chest was submitted for interpretation. FINDINGS: The cardiomediastinal silhouette is again seen to be enlarged lungs show pulmonary edema which mildl y is worsening since prior study. IMPRESSION: Cardiomegaly with slight worsening in pulmonary edema THIS IS AN ELECTRONICALLY VERIFIED FINAL REPORT 06/27/2023 1:02 PM - Electronically signed by Jordy Fleming MD
[2023-06-27] MEDS: LASIX IVP SCH (13:29)
[2023-06-27] MEDS: LASIX IVP ONE (15:21)
--- NOTE | 2023-06-27 15:33 | CT ---
EXAM: CT ABDOMEN AND PELVIS WITHOUT CONTRAST (STONE STUDY) HISTORY: PT C/O LEFT FLANK PAIN; ABDOMINAL PAIN SINCE FEBRUARY, PT STATES THAT SHE HAS BEEN HAVING TO RECEIVE BLOOD TRANSFUSIONS SINCE FEBRUARY COMPARISON: None. TECHNIQUE: Axial CT images were obtained through the urinary tract without contrast. Coronal reformatted images were included. All CT scans at this facility use dose modulation, iterative reconstruction, and/or weight based dosi ng when appropriate to reduce radiation dose to as low as reasonably achievable. FINDINGS: Please note that without the use of intravenous contrast, evaluation of organ parenchyma is limited. URINARY TRACT: No definite stones. No hydronephrosis. Hope catheter in the bladder which is decomp ressed. LOWER THORAX: Hypoventilatory changes at the lung bases. Trace left pleural fluid LIVER: Within normal limits, as visualized. GALLBLADDER: Gallbladder is decompressed with small stones SPLEEN: Within normal limits, as visualized. PANCREAS: Within normal limits, as visualized. ADRENAL GLANDS: Within normal limits. GI TRACT: Moderate colonic stool LYMPH NODES: No lymphadenopathy VESSELS: Mild diffuse athero sclerotic disease PERITONEUM / RETROPERITONEUM: No free fluid or gas. GENITALS: Uterus is absent BONES: Multilevel degenerative changes in the spine with scoliosis IMPRESSION: No evidence of kidney stones or obstructive uropathy. THIS IS AN ELECTRONICALLY VERIFIED FINAL REPORT 06/27/2023 3:30 PM - Electronically signed by Jordy Fleming MD
[2023-06-27 15:53] LABS: HEMATOCRIT 26.2 % (36.0-47.0); HEMOGLOBIN 8.6 g/dL (12.0-16.0)
[2023-06-27] MEDS: TYLENOL 325 MG TAB PO PRN (18:34)
[2023-06-28 05:29] LABS: BASOPHILS # (AUTO) 0.1 X10^3/uL (0.0-0.1); BASOPHILS % (AUTO) 0.7 % (0.2-1.0); EOSINOPHILS # (AUTO) 1.5 x10^3/uL (0.0-0.2); EOSINOPHILS % (AUTO) 12.7 % (0.9-2.9); HEMATOCRIT 23.8 % (36.0-47.0); HEMOGLOBIN 7.9 g/dL (12.0-16.0); LYMPHOCYTES # (AUTO) 0.7 X10^3/uL (1.3-2.9); LYMPHOCYTES % (AUTO) 6.2 % (21.0-51.0); MEAN CORPUSCULAR HEMOGLOBIN 28.5 pg (27.0-34.0); MEAN CORPUSCULAR HGB CONC 33.1 g/dL (33.0-35.0); MEAN PLATELET VOLUME 8.4 fL (7.4-11.0); MONOCYTES # (AUTO) 0.8 x10^3/uL (0.3-0.8); MONOCYTES % (AUTO) 6.8 % (0.0-13.0); NEUTROPHILS # (AUTO) 8.5 x10^3/uL (2.2-4.8); NEUTROPHILS % (AUTO) 73.6 % (42.0-75.0); PLATELET COUNT 288 X10^3/uL (150.0-450.0); RED BLOOD COUNT 2.77 X10^6/uL (3.5-5.4); RED CELL DISTRIBUTION WIDTH 16.1 % (11.6-16.5); WHITE BLOOD COUNT 11.5 X10^3/uL (3.6-10.0)
[2023-06-28 05:49] LABS: ALANINE AMINOTRANSFERASE 14 Units/L (12-78); ALBUMIN 2.3 g/dL (3.4-5.0); ALKALINE PHOSPHATASE 40 Units/L (46-116); ASPARTATE AMINO TRANSFERASE 17 Units/L (15-37); BLOOD UREA NITROGEN 32 mg/dL (7-18); CALCIUM 8.4 mg/dL (8.5-10.1); CARBON DIOXIDE 31.1 mmol/L (21-32); CHLORIDE 104 mmol/L (98-107); COR CA(FOR HYPOALB) 9.8 mg/dL (8.5-10.1); CREATININE 1.82 mg/dL (0.55-1.02); GLUCOSE 102 mg/dL (65-99); POTASSIUM 4.5 mmol/L (3.5-5.1); SODIUM 140 mmol/L (136-145); TOTAL PROTEIN 6.3 g/dL (6.4-8.2); eGFR NON BLACK RACES 29 (>60)
[2023-06-28] MEDS: LASIX IVP ONE (10:25)
--- NOTE | 2023-06-28 11:07 | RAD ---
EXAM:CHEST, 1 VIEWHISTORY:chf, pulmonary edema, sob;COMPARISON:06/27/2023 and chest CTA 06/25/2023FINDINGS:Patchy area of opacity in the left mid lung could be pneumonia. Probably not changed significantly. Prior findings that were in the right upper lung are now hidden by the IPG which is in place.No significant effusion. No pneumothorax.Cardiomegaly is present.The bones are unremarkable.Cervical fixation hardware is present. EKG leads are noted.IMPRESSION:1. Unchanged bronchopneumoniaTHIS IS AN ELECTRONICALLY VERIFIED FINAL REPORT06/28/2023 11:03 AM - Electronically signed by Chris Mcmahon MD
--- NOTE | 2023-06-28 17:40 | EKG ---
Test Reason : ekg changes Blood Pressure : */* mmHG Vent. Rate : 77 BPM Atrial Rate : 77 BPM P-R Int : 148 ms QRS Dur : 106 ms QT Int : 404 ms P-R-T Axes : 51 36 122 degrees QTc Int : 457 ms Sinus rhythm with frequent premature ventricular complexes Abnormal ECG When compared with ECG of 25-JUN-2023 17:07, No significant change was found Confirmed by Zelalem Lopez MD ([id number]) on 06/29/2023 7:36:35 AM Referred By: Confirmed By: Zelalem Lopez MD
[2023-06-28] MEDS ORDERED: NS 250 ML IV 250 ML IV ONE (19:59)
[2023-06-28] MEDS: INJECTAFER 750 MG in NS 250 ML IV 250 ML IV NR (20:21)
[2023-06-29 06:33] LABS: BASOPHILS # (AUTO) 0.1 X10^3/uL (0.0-0.1); BASOPHILS % (AUTO) 1.1 % (0.2-1.0); EOSINOPHILS # (AUTO) 1.6 x10^3/uL (0.0-0.2); EOSINOPHILS % (AUTO) 15.1 % (0.9-2.9); HEMATOCRIT 23.9 % (36.0-47.0); HEMOGLOBIN 8.1 g/dL (12.0-16.0); LYMPHOCYTES % (AUTO) 9.5 % (21.0-51.0); MEAN CORPUSCULAR HEMOGLOBIN 29.3 pg (27.0-34.0); MEAN CORPUSCULAR VOLUME 86.2 fL (80.0-100.0); MEAN PLATELET VOLUME 8.6 fL (7.4-11.0); MONOCYTES # (AUTO) 0.8 x10^3/uL (0.3-0.8); MONOCYTES % (AUTO) 7.7 % (0.0-13.0); NEUTROPHILS % (AUTO) 66.6 % (42.0-75.0); PLATELET COUNT 299 X10^3/uL (150.0-450.0); RED BLOOD COUNT 2.77 X10^6/uL (3.5-5.4); WHITE BLOOD COUNT 10.5 X10^3/uL (3.6-10.0)
[2023-06-29 06:53] LABS: ALANINE AMINOTRANSFERASE 16 Units/L (12-78); ALBUMIN 2.2 g/dL (3.4-5.0); ALKALINE PHOSPHATASE 34 Units/L (46-116); ASPARTATE AMINO TRANSFERASE 19 Units/L (15-37); BLOOD UREA NITROGEN 25 mg/dL (7-18); CALCIUM 8.5 mg/dL (8.5-10.1); CARBON DIOXIDE 32.3 mmol/L (21-32); CHLORIDE 105 mmol/L (98-107); COR CA(FOR HYPOALB) 9.9 mg/dL (8.5-10.1); CREATININE 1.36 mg/dL (0.55-1.02); GLUCOSE 94 mg/dL (65-99); POTASSIUM 4.4 mmol/L (3.5-5.1); SODIUM 140 mmol/L (136-145); TOTAL PROTEIN 6.3 g/dL (6.4-8.2); eGFR NON BLACK RACES 40 (>60)
[2023-06-29 08:32] VITALS: BP 145/63; PULSE 66; RESP 17; TEMP 98.4
[2023-06-29] MEDS: VITAMIN B-12 PO SCH (08:59)
[2023-06-29] MEDS: HYDROCHLOROTHIAZIDE 25 MG TAB PO SCH (08:59)
[2023-06-29] MEDS: PROTONIX TAB 40 MG PO SCH (08:59)
[2023-06-29] MEDS ORDERED: LIPITOR TAB 10 MG PO SCH (09:00)
[2023-06-29 10:06] VITALS: O2SAT 96
[2023-06-29] MEDS ORDERED: PATIENT'S HOME MEDICATION (Mv-Mins No.73-Iron Fum-Folic [Hemocyte-Plus] 106 mg iron- 1 mg PO SCH (21:00)
--- NOTE | 2023-06-30 18:06 | PCM.PROG ---
Progress Note Progress Note for Day of Date of Exam: 06/27/23 Subjective Subjective: PT IS 72 WF, DIRECT ADMIT FROM DR BUSTAMANTE OFFICE ON 06/25/23 WITH RESPIRATORY DISTRESS AND CHEST PRESSURE. PT WAS HYPOXIC ON ADMISSION ABG WITH PO2 IN 60S. PT HAS ELEVATED BNP &DDIMER ON ADMISSION. CTA OF CHEST WAS OBTAINED TO RO PE, WHICH REVEALED PULMONARY CONGESTION, EDEMA, PNEUMONIA AND NEGATIVE FOR A PE. PT HGB WAS DOWN TO 8.3 YESTERDAY, SO WE RESUMED HER PO IRON REPLACEMENT THERAPY. THIS MORNING HGB IS DOWN TO 7.6 WITH WBC OF 11.3, BUN 29/CREATININE 2.17, BNP 648. PT IS ON LASIX 40MG IV WITH POTASSIUM REPLACEMENT AND LOUIS CATH FOR STRICT I&OS. AM VITALS: 116/56-66-21-96% ON 2L. PATIENT COMPLAINS OF LEFT FLANK PAIN. DENIES DYSURIA. Past Medical Family Social History Allergies: Allergies codeine Adverse Reaction (Unknown, Verified 06/25/23 17:20) Vital Signs and I&O's Intake and Output: Intake & Output 06/27/23 06/28/23 06/29/23 06/30/23 11:59 11:59 11:59 11:59 Intake Total 1864 / 1864 1848 / 1848 2480 / 2480 Output Total 1200 / 1200 700 / 700 3000 / 3000 Balance 664 / 664 1148 / 1148 -520 / -520 Physical Exam Oriented: Normal Eyes: Normal Ear: Normal Nose: Normal Throat: Dry Respiratory: Diminished Cardiovascular: Murmur : Normal Auscultation: Bowel Sounds: Normal Palpation: Normal Tenderness: Normal Skin: Decreased Turgur Musculoskeletal: Back:Thoracic and Back:Lumbar Psychiatric: Normal Mood Description: Anxious Affect: Anxious Speech Pattern: Clear and Appropriate Laboratory and Diagnostics 06/29/23 05:40 06/29/23 05:40 Labs: Laboratory WBC 10.5 X10^3/uL (3.6-10.0) H 06/29/23 05:40 RBC 2.77 X10^6/uL (3.5-5.4) L 06/29/23 05:40 Hgb 8.1 g/dL (12.0-16.0) L 06/29/23 05:40 Hct 23.9 % (36.0-47.0) L 06/29/23 05:40 MCV 86.2 fL (80.0-100.0) 06/29/23 05:40 MCH 29.3 pg (27.0-34.0) 06/29/23 05:40 MCHC 34.0 g/dL (33.0-35.0) 06/29/23 05:40 RDW 16.0 % (11.6-16.5) 06/29/23 05:40 Plt Count 299 X10^3/uL (150.0-450.0) 06/29/23 05:40 MPV 8.6 fL (7.4-11.0) 06/29/23 05:40 Neut % (Auto) 66.6 % (42.0-75.0) 06/29/23 05:40 Lymph % (Auto) 9.5 % (21.0-51.0) L 06/29/23 05:40 [place] % (Auto) 7.7 % (0.0-13.0) 06/29/23 05:40 Eos % (Auto) 15.1 % (0.9-2.9) H 06/29/23 05:40 Baso % (Auto) 1.1 % (0.2-1.0) H 06/29/23 05:40 Neut # (Auto) 7.0 x10^3/uL (2.2-4.8) H 06/29/23 05:40 Lymph # (Auto) 1.0 X10^3/uL (1.3-2.9) L 06/29/23 05:40 [place] # (Auto) 0.8 x10^3/uL (0.3-0.8) 06/29/23 05:40 Eos # (Auto) 1.6 x10^3/uL (0.0-0.2) H 06/29/23 05:40 Baso # (Auto) 0.1 X10^3/uL (0.0-0.1) 06/29/23 05:40 Absolute Nucleated RBC 0.1 /100WBC 06/29/23 05:40 D-Dimer 1.04 ug/ml (0.0-0.57) H 06/25/23 16:55 Sample Site Rrad 06/25/23 17:37 ABG pH 7.470 (7.35-7.45) H 06/25/23 17:37 ABG pCO2 38.0 mmHg (35.0-45.0) 06/25/23 17:37 ABG pO2 68.0 mmHg (80.0-100.0) L 06/25/23 17:37 ABG HCO3 27.7 mmol/L (22-26) H 06/25/23 17:37 ABG O2 Saturation 94.0 % (90-100) 06/25/23 17:37 ABG Base Excess 3.9 mmol/L (-2.0-2.0) H 06/25/23 17:37 Henrry Test Pos 06/25/23 17:37 A-a Gradient 34.0 mmHg 06/25/23 17:37 FiO2 21.0 06/25/23 17:37 Blood Gas Comments Avinash well ms 06/25/23 17:37 Sodium 140 mmol/L (136-145) 06/29/23 05:40 Corrected Sodium TNP 06/29/23 05:40 Potassium 4.4 mmol/L (3.5-5.1) 06/29/23 05:40 Chloride 105 mmol/L (98-107) 06/29/23 05:40 Carbon Dioxide 32.3 mmol/L (21-32) H 06/29/23 05:40 BUN 25 mg/dL (7-18) H 06/29/23 05:40 Creatinine 1.36 mg/dL (0.55-1.02) H 06/29/23 05:40 Est GFR (MDRD) Af Amer 49 (>60) L 06/29/23 05:40 Est GFR (MDRD) Non-Af 40 (>60) L 06/29/23 05:40 Glucose 94 mg/dL (65-99) 06/29/23 05:40 POC Glucose (mg/dL) 121 mg/dL (65-99) H 06/27/23 04:25 Calcium 8.5 mg/dL (8.5-10.1) 06/29/23 05:40 Corrected Calcium 9.9 mg/dL (8.5-10.1) 06/29/23 05:40 Magnesium 2.0 mg/dL (2.0-2.9) 06/28/23 04:22 Iron 9 ug/dL (50-175) L 06/27/23 04:25 TIBC 315 ug/dL (250-450) 06/27/23 04:25 Transferrin 238 mg/dL (202-364) 06/27/23 04:25 Ferritin 379 ng/mL (8-252) H 06/27/23 04:25 Total Bilirubin 0.30 mg/dL (0.2-1.0) 06/29/23 05:40 AST 19 Units/L (15-37) 06/29/23 05:40 ALT 16 Units/L (12-78) 06/29/23 05:40 Alkaline Phosphatase 34 Units/L (46-116) L 06/29/23 05:40 Creatine Kinase 32 Units/L (26-192) 06/29/23 05:40 Troponin I High Sens 52.1 ng/L (4.0-60.0) 06/29/23 05:40 B-Natriuretic Peptide 595 pg/mL (0-79) H 06/28/23 10:49 Total Protein 6.3 g/dL (6.4-8.2) L 06/29/23 05:40 Albumin 2.2 g/dL (3.4-5.0) L 06/29/23 05:40 Globulin 4.1 g/dL (2.5-4.5) 06/29/23 05:40 Albumin/Globulin Ratio 0.5 Ratio (1.1-2.1) L 06/29/23 05:40 Folate 14.2 ng/mL (>8.6) 06/27/23 04:25 Stl Occult Blood (IFOB) Negative (NEGATIVE) 06/27/23 23:11 Blood Type O POSITIVE 06/25/23 18:05 Antibody Screen Negative 06/25/23 18:05 Crossmatch See Detail 06/25/23 18:05 Plan (1) CHF (congestive heart failure): Status: Acute Plan: OBTAIN FECAL OCCULT STOOL, CHEST XRAY, CT ABDOMEN AND PELVIS, TYPE/SCREEN AND TRANSFUSE 1 UNIT PRBC PER PROTOCOL. CONTINUE IV ABX, IV HYDRATION, LASIX/POTASSIUM. (2) Chest pain: Status: Acute Qualifiers: Chest pain type: unspecified Qualified Code(s): R07.9 - Chest pain, unspecified (3) CAD (coronary artery disease): Status: Acute (4) Hypoxia: Status: Acute (5) Hypertension: Status: Acute (6) COPD (chronic obstructive pulmonary disease): Status: Acute
--- NOTE | 2023-06-30 18:07 | PCM.DCPLAN ---
DISCHARGE SUMMARY Admission Date Date of Admission: 06/25/23 Discharge Date Discharge Date: 06/29/23 Admission Diagnoses (1) CHF (congestive heart failure): Status: Acute (2) Chest pain: Status: Acute (3) CAD (coronary artery disease): Status: Acute (4) Hypoxia: Status: Acute (5) Hypertension: Status: Acute (6) COPD (chronic obstructive pulmonary disease): Status: Acute Discharge Diagnoses Discharge Diagnosis: SAME ADMISSION, RESOLVED CHEST PAIN Discharge Medications Discharge Medications: Home Medication List fenofibrate 160 mg tablet 160 mg PO QPM 06/25/23 [History] hydrochlorothiazide 25 mg tablet 25 mg PO QAM 06/25/23 [History] multivit-minerals no.73-iron fumarate 106 mg-folic acid 1 mg capsule (Hemocyte- Plus) 1 cap PO HS 06/25/23 [History] pantoprazole 40 mg tablet,delayed release 40 mg PO BID 06/25/23 [History] spironolactone 25 mg tablet 25 mg PO QAM 06/25/23 [History] atorvastatin 10 mg tablet 10 mg PO QAM 06/27/23 [History] azithromycin 250 mg tablet 250 mg PO QDAY 6 days #6 tabs 06/29/23 [Rx] [facility] Lab Results: Laboratory Last Values WBC 10.5 X10^3/uL (3.6-10.0) H 06/29/23 05:40 RBC 2.77 X10^6/uL (3.5-5.4) L 06/29/23 05:40 Hgb 8.1 g/dL (12.0-16.0) L 06/29/23 05:40 Hct 23.9 % (36.0-47.0) L 06/29/23 05:40 MCV 86.2 fL (80.0-100.0) 06/29/23 05:40 MCH 29.3 pg (27.0-34.0) 06/29/23 05:40 MCHC 34.0 g/dL (33.0-35.0) 06/29/23 05:40 RDW 16.0 % (11.6-16.5) 06/29/23 05:40 Plt Count 299 X10^3/uL (150.0-450.0) 06/29/23 05:40 MPV 8.6 fL (7.4-11.0) 06/29/23 05:40 Neut % (Auto) 66.6 % (42.0-75.0) 06/29/23 05:40 Lymph % (Auto) 9.5 % (21.0-51.0) L 06/29/23 05:40 [place] % (Auto) 7.7 % (0.0-13.0) 06/29/23 05:40 Eos % (Auto) 15.1 % (0.9-2.9) H 06/29/23 05:40 Baso % (Auto) 1.1 % (0.2-1.0) H 06/29/23 05:40 Neut # (Auto) 7.0 x10^3/uL (2.2-4.8) H 06/29/23 05:40 Lymph # (Auto) 1.0 X10^3/uL (1.3-2.9) L 06/29/23 05:40 [place] # (Auto) 0.8 x10^3/uL (0.3-0.8) 06/29/23 05:40 Eos # (Auto) 1.6 x10^3/uL (0.0-0.2) H 06/29/23 05:40 Baso # (Auto) 0.1 X10^3/uL (0.0-0.1) 06/29/23 05:40 Absolute Nucleated RBC 0.1 /100WBC 06/29/23 05:40 D-Dimer 1.04 ug/ml (0.0-0.57) H 06/25/23 16:55 Sample Site Rrad 06/25/23 17:37 ABG pH 7.470 (7.35-7.45) H 06/25/23 17:37 ABG pCO2 38.0 mmHg (35.0-45.0) 06/25/23 17:37 ABG pO2 68.0 mmHg (80.0-100.0) L 06/25/23 17:37 ABG HCO3 27.7 mmol/L (22-26) H 06/25/23 17:37 ABG O2 Saturation 94.0 % (90-100) 06/25/23 17:37 ABG Base Excess 3.9 mmol/L (-2.0-2.0) H 06/25/23 17:37 Henrry Test Pos 06/25/23 17:37 A-a Gradient 34.0 mmHg 06/25/23 17:37 FiO2 21.0 06/25/23 17:37 Blood Gas Comments Avinash well ms 06/25/23 17:37 Sodium 140 mmol/L (136-145) 06/29/23 05:40 Corrected Sodium TNP 06/29/23 05:40 Potassium 4.4 mmol/L (3.5-5.1) 06/29/23 05:40 Chloride 105 mmol/L (98-107) 06/29/23 05:40 Carbon Dioxide 32.3 mmol/L (21-32) H 06/29/23 05:40 BUN 25 mg/dL (7-18) H 06/29/23 05:40 Creatinine 1.36 mg/dL (0.55-1.02) H 06/29/23 05:40 Est GFR (MDRD) Af Amer 49 (>60) L 06/29/23 05:40 Est GFR (MDRD) Non-Af 40 (>60) L 06/29/23 05:40 Glucose 94 mg/dL (65-99) 06/29/23 05:40 POC Glucose (mg/dL) 121 mg/dL (65-99) H 06/27/23 04:25 Calcium 8.5 mg/dL (8.5-10.1) 06/29/23 05:40 Corrected Calcium 9.9 mg/dL (8.5-10.1) 06/29/23 05:40 Magnesium 2.0 mg/dL (2.0-2.9) 06/28/23 04:22 Iron 9 ug/dL (50-175) L 06/27/23 04:25 TIBC 315 ug/dL (250-450) 06/27/23 04:25 Transferrin 238 mg/dL (202-364) 06/27/23 04:25 Ferritin 379 ng/mL (8-252) H 06/27/23 04:25 Total Bilirubin 0.30 mg/dL (0.2-1.0) 06/29/23 05:40 AST 19 Units/L (15-37) 06/29/23 05:40 ALT 16 Units/L (12-78) 06/29/23 05:40 Alkaline Phosphatase 34 Units/L (46-116) L 06/29/23 05:40 Creatine Kinase 32 Units/L (26-192) 06/29/23 05:40 Troponin I High Sens 52.1 ng/L (4.0-60.0) 06/29/23 05:40 B-Natriuretic Peptide 595 pg/mL (0-79) H 06/28/23 10:49 Total Protein 6.3 g/dL (6.4-8.2) L 06/29/23 05:40 Albumin 2.2 g/dL (3.4-5.0) L 06/29/23 05:40 Globulin 4.1 g/dL (2.5-4.5) 06/29/23 05:40 Albumin/Globulin Ratio 0.5 Ratio (1.1-2.1) L 06/29/23 05:40 Folate 14.2 ng/mL (>8.6) 06/27/23 04:25 Stl Occult Blood (IFOB) Negative (NEGATIVE) 06/27/23 23:11 Blood Type O POSITIVE 06/25/23 18:05 Antibody Screen Negative 06/25/23 18:05 Crossmatch See Detail 06/25/23 18:05 Hospital Course: PT IS 72 WF, DIRECT ADMIT FROM DR BUSTAMANTE OFFICE ON 06/25/23 WITH RESPIRATORY DISTRESS AND CHEST PRESSURE. PT WAS HYPOXIC ON ADMISSION ABG WITH PO2 IN 60S. PT HAD ELEVATED BNP &DDIMER ON ADMISSION. CTA OF CHEST WAS OBTAINED TO RO PE, WHICH REVEALED PULMONARY CONGESTION, EDEMA, PNEUMONIA AND NEGATIVE FOR A PE. SHE WAS STARTED ON IV ABX. PT HGB WAS DOWN TO 8.3 ON 06/26/23, SO WE RESUMED HER PO IRON REPLACEMENT THERAPY. ON 06/27/23, HER HGB WAS DOWN TO 7.6. SHE WAS TRANSFUSED WITH 1 UNIT OF PRBC. IRON LEVEL WAS DOWN TO 9. FECAL OCCULT STOOL WAS NEGATIVE. PT HAS BEEN TREATED WITH LASIX 40MG IV WITH POTASSIUM REPLACEMENT AND LOUIS CATH FOR STRICT I&OS. SHE HAD COMPLAINED OF LEFT FLANK PAIN, SO WE OBTAINED A CT ABD AND PELVIS THAT SHOWED NO EVIDENCE OF KIDNEY STONES OR OBSTRUCTIVE UROPATHY. SHE ALSO HAD A REPEAT CHEST XRAY ON 06/27/23 THAT SHOWED CARDIOMEGALY WITH SLIGHT WORSENING IN PULMONARY EDEMA AND ANOTHER ON 06/28/23 THAT SHOWED UNCHANGED BRONCHOPNEUMONIA. YESTERDAY, THE PATIENT DID HAVE A 15 BE AT RUN OF [employer]. SHE REMAINED ASYMPTOMATIC. WE ORDERED A EKG THAT SHOWED SINUS RHYTHM WITH FREQUENT PVC'S, CK Q 6 AND [id number] Q 6, ALL WHICH HAVE BEEN NORMAL. PATIENT WAS STARTED ON INJECTAFOR. MORNING LABS: WBC 10.5, HGB 8.1, BUN 25/CREATININE 1.36. MORNING VITALS: 145/63-66-17-98.4-97% ON 3L. PATIENT STATES THAT SHE IS FEELING MUCH IMPROVED. SHE DENIES CHEST PAIN, INCREASED SOB, DIZZINESS OR BLURRED VISION. WE WILL ALLOW HER TO DISCHARGE HOME ON PO ABX. SHE WILL NEED TO FOLLOW UP WITH HER PRIMARY CARE PROVIDER, APPOINTMENT SCHEDULED FOR 07/06/23 AT 1:45PM. PLEASE SEE DISCHARGE PLAN FOR LIST OF DISCHARGE MEDICATIONS AND MODIFICATIONS THAT WE MADE, ELECTRONIC MEDICAL RECORD FOR DIAGNOSTIC TESTS AND LABS. THE PATIENT WAS INSTRUCTED TO RETURN TO THE ER IF CONDITION CHANGED OR WORSENED UNEXPECTEDLY.
== END 2023-06-29 11:30 | disposition home or self-care (01) | DRG 291 ==
LOC: ICU → OBSVTOIN 15:44
PROVIDERS: ADMIT Internal Medicine; ATTEND Internal Medicine

== ENCOUNTER 2023-07-01 09:19 | Inpatient (IN) ==
--- NOTE | 2023-07-01 09:29 | DR.SOBA ---
HPI Time Seen Time Seen by Provider: 07/01/23 09:20 Complaints Chief Complaint Doctors Comments: Patient was d/c 06/29/2023 from [facility]. She has a h/o CHF and COPD and was d/c on 2L 02NC. Patient has been having worsening sob since she arrived home and has been coughing up yellow sputum. Pastry Baker stated that when they arrived her 02 sat was 70-80's. They increased her 02 to 6L for transport to the hospital.Patient was d/c with azithromycin [place].Patient states that she has been having chest discomfort since she was admitted to the hospital and the pain is uncagnged. Patient states that she is chronically on Plavix because she has had h/o Atrial fibrillation.Patient denies:palpitations,syncope,headache,n,v. PMH PMH Past Medical History: Anxiety, Arthritis, COPD, Coronary Artery Disease, GERD and Hypertension Past Surgical History: Yes Surgical History: Angioplasty/Stents, Hysterectomy, Ortho Surgery and Other Family History Family Medical History: Diabetes Mellitus, Cancer, OR and Hypertension Social History Do you use any recreational Drugs:: No ROS Review of Systems Constitutional: Malaise Eyes: No Symptoms Reported ENTM: No Symptoms Reported Respiratoy: No Symptoms Reported, Productive Cough (yellow) and Short of Breath Cardiovascular: negative Palpitations Gastrointestinal/Abdominal: No Symptoms Reported Genitourinary: No Symptoms Reported Neurological: No Symptoms Reported Musculoskeletal: No Symptoms Reported Integumentary: No Symptoms Reported Hematologic/Lymphatic: No Symptoms Reported Endocrine: No Symptoms Reported Psychiatric: No Symptoms Reported All Other Systems: Reviewed and Negative PE Vital Signs Vitals: Vital Signs Temperature 99.2 F Pulse Rate 72 Pulse Rate 71 Pulse Rate 78 Pulse Rate 70 Pulse Rate 71 Pulse Rate 71 Pulse Rate 70 Pulse Rate 68 Pulse Rate 69 Pulse Rate 70 Pulse Rate 71 Pulse Rate 71 Pulse Rate 71 Respiratory Rate 31 Respiratory Rate 32 Respiratory Rate 32 Respiratory Rate 34 Respiratory Rate 19 Respiratory Rate 38 Respiratory Rate 19 Respiratory Rate 35 Respiratory Rate 43 Respiratory Rate 32 Blood Pressure 145/67 Blood Pressure 109/69 Blood Pressure 193/80 Blood Pressure 165/74 Blood Pressure 168/73 Blood Pressure 181/74 O2 Sat by Pulse Oximetry 95 O2 Sat by Pulse Oximetry 96 O2 Sat by Pulse Oximetry 93 O2 Sat by Pulse Oximetry 96 O2 Sat by Pulse Oximetry 96 O2 Sat by Pulse Oximetry 97 O2 Sat by Pulse Oximetry 96 O2 Sat by Pulse Oximetry 96 O2 Sat by Pulse Oximetry 95 O2 Sat by Pulse Oximetry 95 O2 Sat by Pulse Oximetry 95 O2 Sat by Pulse Oximetry 95 O2 Sat by Pulse Oximetry 94 General Limitations: No Limitations General Appearance: Alert and In No Apparent Distress Head Head Exam: Normal Inspection Eyes Eye exam: Normal Appearance ENT ENT Exam: Normal Exam Neck Neck Exam: Normal Inspection Chest Chest Inspection: Normal Inspection Respiratory Respiratory Exam: Normal Lung Sounds Bilat Respiratory Exam: Bilateral: Decreased Breath Sounds Cardiovascular Cardiovascular Exam: Regular Rate and Normal Rhythm Abdominal Exam Abdominal Exam: Normal Inspection, Normal Bowel Sounds and Soft Extremities Extremities Exam: Normal Inspection Back Back Exam: Normal Inspection Neurologic Neurological Exam: Alert and Oriented X3 Psychiatric Psychiatric Exam: Normal Affect and Normal Mood Skin Skin Exam: Warm, Dry, Intact and Normal Color MDM Differential Diagnosis Differential Diagnosis: CHF and Mycardial Infarction Differential Diagnosis Comment:: electrolyte disorder COURSE Treatment Treatment: Patient was brought to a monitored room. IV access was initiated and labs and tests were ordered. Patient's chest x-ray revealed unchanged bronchopneumonia, and left midlung opacity. Patient's labs: BNP 1300, lactic acid 0.6, WBC 10.9, BUN 21, creatinine 1.1, PT 15.1, INR 1.21, troponin 58.9,ABG: pH 7.48.PCO2 45/P02 66/HC03 33/02SAT 94/FI02 28. Discussed case with Dr. Alves. Dr. Alves has accepted patient to his service. He would like the patient to receive Invanz and azithromycin. Patient has been stable in the ED. ROR Labs Reviewed Laboratory Results Reviewed?: Yes 07/01/23 09:58 07/01/23 09:58 Laboratory: WBC 10.9 X10^3/uL (3.6-10.0) H 07/01/23 09:58 RBC 3.15 X10^6/uL (3.5-5.4) L 07/01/23 09:58 Hgb 9.1 g/dL (12.0-16.0) L 07/01/23 09:58 Hct 27.2 % (36.0-47.0) L 07/01/23 09:58 MCV 86.3 fL (80.0-100.0) 07/01/23 09:58 MCH 28.9 pg (27.0-34.0) 07/01/23 09:58 MCHC 33.5 g/dL (33.0-35.0) 07/01/23 09:58 RDW 16.5 % (11.6-16.5) 07/01/23 09:58 Plt Count 404 X10^3/uL (150.0-450.0) 07/01/23 09:58 MPV 8.0 fL (7.4-11.0) 07/01/23 09:58 Neut % (Auto) 72.8 % (42.0-75.0) 07/01/23 09:58 Lymph % (Auto) 9.0 % (21.0-51.0) L 07/01/23 09:58 [place] % (Auto) 5.8 % (0.0-13.0) 07/01/23 09:58 Eos % (Auto) 11.1 % (0.9-2.9) H 07/01/23 09:58 Baso % (Auto) 1.3 % (0.2-1.0) H 07/01/23 09:58 Neut # (Auto) 7.9 x10^3/uL (2.2-4.8) H 07/01/23 09:58 Lymph # (Auto) 1.0 X10^3/uL (1.3-2.9) L 07/01/23 09:58 [place] # (Auto) 0.6 x10^3/uL (0.3-0.8) 07/01/23 09:58 Eos # (Auto) 1.2 x10^3/uL (0.0-0.2) H 07/01/23 09:58 Baso # (Auto) 0.1 X10^3/uL (0.0-0.1) 07/01/23 09:58 Absolute Nucleated RBC 0.0 /100WBC 07/01/23 09:58 PT 15.1 SECONDS (11.8-14.3) 07/01/23 09:58 INR Target Range - 07/01/23 09:58 INR 1.21 (0.8-1.3) 07/01/23 09:58 APTT 41.7 SECONDS (22.9-36.5) H 07/01/23 09:58 PTT Comment - 07/01/23 09:58 Sample Site Lbra 07/01/23 09:31 ABG pH 7.480 (7.35-7.45) H 07/01/23 09:31 ABG pCO2 45.0 mmHg (35.0-45.0) 07/01/23 09:31 ABG pO2 66.0 mmHg (80.0-100.0) L 07/01/23 09:31 ABG HCO3 33.5 mmol/L (22-26) H* 07/01/23 09:31 ABG O2 Saturation 94.0 % (90-100) 07/01/23 09:31 ABG Base Excess 8.9 mmol/L (-2.0-2.0) H 07/01/23 09:31 Henrry Test N/a 07/01/23 09:31 A-a Gradient 77.0 mmHg 07/01/23 09:31 FiO2 28.0 07/01/23 09:31 Blood Gas Comments Pt rush well elj 07/01/23 09:31 Sodium 139 mmol/L (136-145) 07/01/23 09:58 Corrected Sodium TNP 07/01/23 09:58 Potassium 4.4 mmol/L (3.5-5.1) 07/01/23 09:58 Chloride 103 mmol/L (98-107) 07/01/23 09:58 Carbon Dioxide 29.9 mmol/L (21-32) 07/01/23 09:58 BUN 21 mg/dL (7-18) H 07/01/23 09:58 Creatinine 1.11 mg/dL (0.55-1.02) H 07/01/23 09:58 Est GFR (MDRD) Af Amer > 60 (>60) 07/01/23 09:58 Est GFR (MDRD) Non-Af 51 (>60) L 07/01/23 09:58 Glucose 86 mg/dL (65-99) 07/01/23 09:58 Lactic Acid 0.6 mmol/L (0.4-2.0) 07/01/23 09:58 Calcium 9.0 mg/dL (8.5-10.1) 07/01/23 09:58 Corrected Calcium 10.2 mg/dL (8.5-10.1) H 07/01/23 09:58 Total Bilirubin 0.50 mg/dL (0.2-1.0) 07/01/23 09:58 AST 21 Units/L (15-37) 07/01/23 09:58 ALT 19 Units/L (12-78) 07/01/23 09:58 Alkaline Phosphatase 39 Units/L (46-116) L 07/01/23 09:58 Creatine Kinase 33 Units/L (26-192) 07/01/23 09:58 Troponin I High Sens 58.9 ng/L (4.0-60.0) 07/01/23 09:58 C-Reactive Protein 86.60 mg/L (0-3.0) H 07/01/23 09:58 B-Natriuretic Peptide 1300 pg/mL (0-79) H 07/01/23 09:58 Total Protein 7.1 g/dL (6.4-8.2) 07/01/23 09:58 Albumin 2.5 g/dL (3.4-5.0) L 07/01/23 09:58 Globulin 4.6 g/dL (2.5-4.5) H 07/01/23 09:58 Albumin/Globulin Ratio 0.5 Ratio (1.1-2.1) L 07/01/23 09:58 Specimen Type Clean catch urine 07/01/23 11:15 Urine Color Yellow (YELLOW) 07/01/23 11:15 Urine Appearance Clear (CLEAR) 07/01/23 11:15 Urine pH 8.0 (5.0 - 8.0) 07/01/23 11:15 Ur Specific [place] 1.010 (1.000-1.030) 07/01/23 11:15 Urine Protein Negative (NEGATIVE) 07/01/23 11:15 Urine Glucose (UA) Negative (NEGATIVE) 07/01/23 11:15 Urine Ketones Negative (NEGATIVE) 07/01/23 11:15 Urine Blood Negative (NEGATIVE) 07/01/23 11:15 Urine Nitrite Negative (NEGATIVE) 07/01/23 11:15 Urine Bilirubin Negative (NEGATIVE) 07/01/23 11:15 Urine Urobilinogen Normal (NORMAL) 07/01/23 11:15 Ur Leukocyte Esterase Negative (NEGATIVE) 07/01/23 11:15 EKG Compared to prior EKG Dated: 07/01/23 Rate: 72 [place]: LAD Rhythm: NSR Block: LBBB (incomplete) Opioid Opioid Risk Tool Age ([place] box if 16-45): No History of Preadolescent Sexual Abuse: No Total: 0 Total Score Risk Category: Low Risk Copyright: Greg GIMENEZ predicting aberrant behaviors Discharge Plan Diagnosis Discharge Problem: Pneumonia, Congestive heart failure (CHF), Hypoxemia Discharge Plan Patient Disposition: ADMITTED INPATIENT Condition: Stable Prescriptions: No Action losartan 50 mg tablet 50 mg PO QDAY potassium chloride 10 mEq capsule, extended release 10 meq PO QAM carvedilol 12.5 mg tablet 12.5 mg PO BID citalopram 40 mg tablet 40 mg PO HS amlodipine 5 mg tablet 10 mg PO QDAY ropinirole 2 mg tablet 2 mg PO BID cyanocobalamin (vitamin B-12) 1,000 mcg tablet 1,000 mcg PO QDAY clonidine HCl 0.2 mg tablet 0.2 mg PO DAILY spironolactone 25 mg tablet 25 mg PO QAM pantoprazole 40 mg tablet,delayed release (DR/EC) 40 mg PO BID hydrochlorothiazide 25 mg tablet 25 mg PO QAM fenofibrate 160 mg tablet 160 mg PO QPM atorvastatin 10 mg Tablet 10 mg PO QAM azithromycin 250 mg tablet 250 mg PO QDAY 6 Days Qty: 6 0RF Rx Instructions: start on day 2 of therapy Health Concerns: Post Hospitalization: new medications and changes needed to prevent readmission or further decline. Pt educated and given instructions on all concerns. Plan of Treatment: Continue with present treatment and follow up plan. Pt is to keep follow up appointment as instructed and take medications as ordered. Orders to Discharge Patient Discharge Orders: Transfer (Routine); Ordered 07/01/23 Ordered By: Batsheva Pearl Follow ups/Referrals Follow ups/Referrals: JERRY VANN [Primary Care Provider] - 3 days Instructions Stand Alone Forms: Post Hospital Follow Up Care
[2023-07-01 09:35] LABS: ABG BASE EXCESS 8.9 mmol/L (-2.0-2.0); ABG HCO3 33.5 mmol/L (22-26)
--- NOTE | 2023-07-01 09:42 | EKG ---
Test Reason : SOB Blood Pressure : */* mmHG Vent. Rate : 72 BPM Atrial Rate : 72 BPM P-R Int : 136 ms QRS Dur : 110 ms QT Int : 446 ms P-R-T Axes : 44 3 108 degrees QTc Int : 488 ms Normal sinus rhythm Possible Left atrial enlargement Incomplete left bundle branch block Left ventricular hypertrophy with repolarization abnormality ( R in aVL , Alsen product ) Abnormal ECG When compared with ECG of 28-JUN-2023 17:24, premature ventricular complexes are no longer present T wave inversion no longer evident in Inferior leads Confirmed by Zelalem Lopez MD ([id number]) on 07/02/2023 6:21:29 AM Referred By: Confirmed By: Zelalem Lopez MD
[2023-07-01 10:23] LABS: BASOPHILS # (AUTO) 0.1 X10^3/uL (0.0-0.1); BASOPHILS % (AUTO) 1.3 % (0.2-1.0); EOSINOPHILS # (AUTO) 1.2 x10^3/uL (0.0-0.2); EOSINOPHILS % (AUTO) 11.1 % (0.9-2.9); HEMATOCRIT 27.2 % (36.0-47.0); HEMOGLOBIN 9.1 g/dL (12.0-16.0); MEAN CORPUSCULAR HEMOGLOBIN 28.9 pg (27.0-34.0); MEAN CORPUSCULAR HGB CONC 33.5 g/dL (33.0-35.0); MEAN CORPUSCULAR VOLUME 86.3 fL (80.0-100.0); MONOCYTES # (AUTO) 0.6 x10^3/uL (0.3-0.8); MONOCYTES % (AUTO) 5.8 % (0.0-13.0); NEUTROPHILS # (AUTO) 7.9 x10^3/uL (2.2-4.8); NEUTROPHILS % (AUTO) 72.8 % (42.0-75.0); PLATELET COUNT 404 X10^3/uL (150.0-450.0); RED BLOOD COUNT 3.15 X10^6/uL (3.5-5.4); RED CELL DISTRIBUTION WIDTH 16.5 % (11.6-16.5); WHITE BLOOD COUNT 10.9 X10^3/uL (3.6-10.0)
[2023-07-01 10:31] LABS: INR 1.21 (0.8-1.3)
[2023-07-01 10:40] LABS: ALANINE AMINOTRANSFERASE 19 Units/L (12-78); ALBUMIN 2.5 g/dL (3.4-5.0); ALKALINE PHOSPHATASE 39 Units/L (46-116); ASPARTATE AMINO TRANSFERASE 21 Units/L (15-37); BLOOD UREA NITROGEN 21 mg/dL (7-18); CARBON DIOXIDE 29.9 mmol/L (21-32); CHLORIDE 103 mmol/L (98-107); COR CA(FOR HYPOALB) 10.2 mg/dL (8.5-10.1); CREATINE KINASE 33 Units/L (26-192); CREATININE 1.11 mg/dL (0.55-1.02); GLUCOSE 86 mg/dL (65-99); POTASSIUM 4.4 mmol/L (3.5-5.1); SODIUM 139 mmol/L (136-145); TOTAL PROTEIN 7.1 g/dL (6.4-8.2); eGFR NON BLACK RACES 51 (>60)
[2023-07-01 11:27] LABS: BILIRUBIN,URINE NEGATIVE (NEGATIVE); BLOOD/HEMOGLOBIN,URINE NEGATIVE (NEGATIVE); GLUCOSE, URINE NEGATIVE (NEGATIVE); KETONES,URINE NEGATIVE (NEGATIVE); LEUKOCYTE ESTERASE ,URINE NEGATIVE (NEGATIVE); NITRITES,URINE NEGATIVE (NEGATIVE); PROTEIN,URINE NEGATIVE (NEGATIVE); UROBILINOGEN,URINE NORMAL (NORMAL)
[2023-07-01 11:30] LABS: APPEARANCE,URINE CLEAR (CLEAR); COLOR,URINE YELLOW (YELLOW)
--- NOTE | 2023-07-01 11:41 | RAD ---
EXAM:CHEST, 1 VIEWHISTORY:SOB, HX OF CHF/COPD;COMPARISON:Prior study or studies were utilized for comparison during interpretation with the most relevant dated 06/28/2019TECHNIQUE:CHEST, 1 VIEWFINDINGS:Chest:Lines and tubes: An implanted device projects over the right chest with lead projecting over the right cervical soft tissues. Cardiac leads overlie the chest.Mediastinum: Borderline cardiomegaly.Pulmonary vessels: There is pulmonary vascular congestion.Lung cheng: Patchy opacities are seenPleura: No effusion. No pneumothorax.Bones and soft tissues: No acute osseous or soft tissue abnormality.IMPRESSION:1. Heart failure exacerbation suggestedTHIS IS AN ELECTRONICALLY VERIFIED FINAL REPORT07/01/2023 11:38 AM - Electronically signed by Oneil Harp MD
[2023-07-01] MEDS: INVanz INJ 1 GRAM VIAL 1 G in NS 100 ML IV 100 ML IV SCH (12:02)
[2023-07-01 13:22] VITALS: BMI 32.4
[2023-07-01] MEDS: DUONEB 0.5 MG/3 MG (3 mL) NEB SCH (13:26)
[2023-07-01] MEDS: ZITHROMAX INJ 500 MG VIAL 500 MG in NS 250 ML IV 250 ML IV SCH (13:49)
[2023-07-01] MEDS: NS 100 ML IV 100 ML ONE (13:51)
[2023-07-01] MEDS: REQUIP PO SCH (16:43)
[2023-07-01] MEDS: PULMICORT NEB TX 0.5 MG NEB SCH (20:09)
[2023-07-01] MEDS ORDERED: PROTONIX TAB 40 MG PO SCH (21:00)
[2023-07-01] MEDS ORDERED: REQUIP PO SCH (21:00)
[2023-07-01] MEDS: TRICOR TAB 160 MG PO SCH (21:24)
[2023-07-01] MEDS: CELEXA PO SCH (21:24)
[2023-07-01] MEDS: COREG TAB 12.5 MG PO SCH (21:25)
[2023-07-01] MEDS: PROTONIX INJ 40 MG VIAL IVP SCH (21:26)
[2023-07-01] MEDS ORDERED: RESTORIL CAP 15 MG PO ONE (23:04)
[2023-07-01] MEDS: RESTORIL CAP 15 MG PO PRN (23:29)
[2023-07-02 06:00] LABS: BASOPHILS # (AUTO) 0.1 X10^3/uL (0.0-0.1); BASOPHILS % (AUTO) 0.7 % (0.2-1.0); EOSINOPHILS # (AUTO) 1.5 x10^3/uL (0.0-0.2); EOSINOPHILS % (AUTO) 14.8 % (0.9-2.9); HEMATOCRIT 26.6 % (36.0-47.0); HEMOGLOBIN 8.9 g/dL (12.0-16.0); LYMPHOCYTES # (AUTO) 0.7 X10^3/uL (1.3-2.9); LYMPHOCYTES % (AUTO) 7.3 % (21.0-51.0); MEAN CORPUSCULAR HGB CONC 33.5 g/dL (33.0-35.0); MEAN CORPUSCULAR VOLUME 86.7 fL (80.0-100.0); MEAN PLATELET VOLUME 7.8 fL (7.4-11.0); MONOCYTES # (AUTO) 0.7 x10^3/uL (0.3-0.8); MONOCYTES % (AUTO) 7.3 % (0.0-13.0); NEUTROPHILS % (AUTO) 69.9 % (42.0-75.0); PLATELET COUNT 410 X10^3/uL (150.0-450.0); RED BLOOD COUNT 3.07 X10^6/uL (3.5-5.4); RED CELL DISTRIBUTION WIDTH 16.2 % (11.6-16.5); WHITE BLOOD COUNT 10.1 X10^3/uL (3.6-10.0)
[2023-07-02 06:03] LABS: ALANINE AMINOTRANSFERASE 17 Units/L (12-78); ALBUMIN 2.4 g/dL (3.4-5.0); ALKALINE PHOSPHATASE 38 Units/L (46-116); ASPARTATE AMINO TRANSFERASE 21 Units/L (15-37); BLOOD UREA NITROGEN 16 mg/dL (7-18); CALCIUM 8.8 mg/dL (8.5-10.1); CARBON DIOXIDE 30.4 mmol/L (21-32); CHLORIDE 104 mmol/L (98-107); COR CA(FOR HYPOALB) 10.1 mg/dL (8.5-10.1); GLUCOSE 90 mg/dL (65-99); POTASSIUM 4.3 mmol/L (3.5-5.1); SODIUM 139 mmol/L (136-145); TOTAL PROTEIN 6.6 g/dL (6.4-8.2); eGFR NON BLACK RACES 52 (>60)
[2023-07-02] MEDS: HYDROCHLOROTHIAZIDE 25 MG TAB PO SCH (08:29)
[2023-07-02] MEDS: NORVASC TAB 5 MG PO SCH (08:29)
[2023-07-02] MEDS: COZAAR PO SCH (08:30)
[2023-07-02] MEDS: ALDACTONE TAB 25 MG PO SCH (08:31)
[2023-07-02] MEDS ORDERED: CATAPRES TAB 0.2 MG PO SCH (09:00)
--- NOTE | 2023-07-02 10:01 | RAD ---
EXAM:CHEST, 1 VIEWHISTORY:PNEUMONIA L LUNG, CHF, HYPOXEMIA;COMPARISON:Prior study or studies were utilized for comparison during interpretation with the most relevant dated yesterdayTECHNIQUE:CHEST, 1 VIEWFINDINGS:Chest:Lines and tubes: Right-sided pacemaker generator with lead or leads in satisfactory position.Mediastinum: Cardiomegaly.Pulmonary vessels: There is pulmonary vascular congestion.Lung cheng: Patchy opacities are seenPleura: No effusion. No pneumothorax.Bones and soft tissues: No acute osseous or soft tissue abnormality.IMPRESSION:1. Heart failure versus pneumonia suggested2. Overall no significant change from yesterdayTHIS IS AN ELECTRONICALLY VERIFIED FINAL REPORT07/02/2023 9:58 AM - Electronically signed by Oneil Harp MD
[2023-07-02] MEDS: D5 LR 1,000 ML 1,000 ML IV ONE (12:42)
[2023-07-02] MEDS: DIPRIVAN VIAL 20 ML ONE (12:50)
[2023-07-02] MEDS: LASIX IVP SCH (14:36)
[2023-07-02] MEDS: MICRO K EXTEN CAP 10 MEQ PO SCH (14:37)
[2023-07-02] MEDS: LIPITOR TAB 10 MG PO SCH (14:37)
[2023-07-02] MEDS: LOVENOX INJ 40 MG SYR SC SCH (14:37)
[2023-07-02] MEDS: VITAMIN B-12 PO SCH (14:38)
[2023-07-03] MEDS: DUONEB 0.5 MG/3 MG (3 mL) NEB ONE (05:07)
[2023-07-03] MEDS: PULMICORT NEB TX 0.5 MG NEB ONE (05:07)
[2023-07-03] MEDS: DIPRIVAN VIAL 20 ML ONE (05:07)
[2023-07-03 06:09] LABS: BASOPHILS # (AUTO) 0.1 X10^3/uL (0.0-0.1); BASOPHILS % (AUTO) 1.3 % (0.2-1.0); EOSINOPHILS # (AUTO) 1.5 x10^3/uL (0.0-0.2); EOSINOPHILS % (AUTO) 17.5 % (0.9-2.9); HEMATOCRIT 28.1 % (36.0-47.0); HEMOGLOBIN 9.4 g/dL (12.0-16.0); LYMPHOCYTES # (AUTO) 0.8 X10^3/uL (1.3-2.9); LYMPHOCYTES % (AUTO) 10.2 % (21.0-51.0); MEAN CORPUSCULAR HEMOGLOBIN 28.8 pg (27.0-34.0); MEAN CORPUSCULAR HGB CONC 33.4 g/dL (33.0-35.0); MEAN CORPUSCULAR VOLUME 86.4 fL (80.0-100.0); MEAN PLATELET VOLUME 7.7 fL (7.4-11.0); MONOCYTES # (AUTO) 0.7 x10^3/uL (0.3-0.8); MONOCYTES % (AUTO) 8.8 % (0.0-13.0); NEUTROPHILS # (AUTO) 5.2 x10^3/uL (2.2-4.8); NEUTROPHILS % (AUTO) 62.2 % (42.0-75.0); PLATELET COUNT 433 X10^3/uL (150.0-450.0); RED BLOOD COUNT 3.25 X10^6/uL (3.5-5.4); RED CELL DISTRIBUTION WIDTH 16.3 % (11.6-16.5); WHITE BLOOD COUNT 8.3 X10^3/uL (3.6-10.0)
[2023-07-03 06:18] LABS: ALANINE AMINOTRANSFERASE 17 Units/L (12-78); ALBUMIN 2.4 g/dL (3.4-5.0); ALKALINE PHOSPHATASE 37 Units/L (46-116); ASPARTATE AMINO TRANSFERASE 24 Units/L (15-37); BLOOD UREA NITROGEN 17 mg/dL (7-18); CALCIUM 9.2 mg/dL (8.5-10.1); CARBON DIOXIDE 34.6 mmol/L (21-32); CHLORIDE 103 mmol/L (98-107); COR CA(FOR HYPOALB) 10.5 mg/dL (8.5-10.1); CREATININE 1.28 mg/dL (0.55-1.02); GLUCOSE 86 mg/dL (65-99); POTASSIUM 4.5 mmol/L (3.5-5.1); SODIUM 139 mmol/L (136-145); TOTAL PROTEIN 6.8 g/dL (6.4-8.2); eGFR NON BLACK RACES 43 (>60)
[2023-07-03 07:43] LABS: ABG BASE EXCESS 8.7 mmol/L (-2.0-2.0)
[2023-07-03 07:44] LABS: ABG ALLEN TEST POS; ABG HCO3 34.1 mmol/L (22-26)
--- NOTE | 2023-07-03 08:36 | RAD ---
EXAM:Portable AP chestHISTORY:CHF pneumoniaCOMPARISON:07/02/2023FINDINGS:S imilar cardiomegaly with central vascular congestion. There is no evidence for localized pneumonia, edema, pneumothorax or pleural fluid. Surface electronic device significantly obscures portions of the right upper lung.IMPRESSION:No change/new abnormality.THIS IS AN ELECTRONICALLY VERIFIED FINAL REPORT07/03/2023 8:33 AM - Electronically signed by Jose Luis York MD
[2023-07-03] MEDS ORDERED: LASIX IVP SCH (10:00)
[2023-07-03] MEDS: LASIX IVP NR (10:53)
--- NOTE | 2023-07-03 11:52 | DR.H&P ---
H&P History & Physical for Day of: H&P Date: 07/01/23 Chief Complaint Chief Complaint: Worsening shortness of breath with intermittent chest discomfort since recent discharge from inpatient care Allergies Allergies Allergy/AdvReac Type Severity Reaction Status Date / Time codeine AdvReac Unknown Verified 06/25/23 17:20 History of Present Illness History of Present Illness: Patient is a 72 year old WF, ER admission after presenting with complaints of worsening shortness of breath and intermittent chest discomfort since discharge from [facility] on 06/29/23. She was discharged home on 2L 02 and azithromycin. Patient was transported via EMS and EMT's reported her 02 Sat was 70-80's upon arrival. She denies palpitations, syncope, headache, n/v. ER workup included a chest xray showing unchanged bronchopneumonia and left lung opacity. ER labs: BNP 1300, lactic acid 0.6, WBC 10.9, BUN 21, creatinine 1.1, PT 15.1, INR 1.21, troponin 58.9,ABG: pH 7.48.PCO2 45/P02 66/HC03 33/02SAT 94/FI02 28. Pt has a PMH of cad, htn, chf, anemia, gerd, [place], oa, and pulmonary htn. Pt admitted for treatment and evaluation of acute illness. Past Medical History Past Medical History: Anxiety, Arthritis, CHF, COPD, Coronary Artery Disease, Depression, GERD and Hypertension Past Surgical History Surgical History: Angioplasty/Stents and Hysterectomy Family History Family Medical History: Cancer Social History Does patient currently use any type of tobacco product: No Have you used tobacco products in the last 12 months: No Type of Tobacco Use: None Does any household member use tobacco: No Alcohol Use: None Drug Use: None Medications Home Medications: Home Medications Medication Instructions Recorded Confirmed Type amlodipine 5 mg tablet 10 mg PO QDAY 06/26/22 07/01/23 History carvedilol 12.5 mg tablet 12.5 mg PO BID 06/26/22 07/01/23 History citalopram 40 mg tablet 40 mg PO HS 06/26/22 07/01/23 History losartan 50 mg tablet 50 mg PO QDAY 06/26/22 07/01/23 History potassium chloride 10 mEq 10 meq PO QAM 06/26/22 07/01/23 History capsule,extended release ropinirole 2 mg tablet 2 mg PO BID 06/26/22 07/01/23 History cyanocobalamin (vitamin B-12) 1,000 mcg PO QDAY 10/06/22 07/01/23 History 1,000 mcg tablet fenofibrate 160 mg tablet 160 mg PO QPM 06/25/23 07/01/23 History hydrochlorothiazide 25 mg tablet 25 mg PO QAM 06/25/23 07/01/23 History pantoprazole 40 mg tablet,delayed 40 mg PO BID 06/25/23 07/01/23 History release spironolactone 25 mg tablet 25 mg PO QAM 06/25/23 07/01/23 History atorvastatin 10 mg tablet 10 mg PO QAM 06/27/23 07/01/23 History clonidine HCl 0.2 mg tablet 0.2 mg PO DAILY 07/01/23 07/01/23 History Labs 07/03/23 05:40 07/03/23 05:40 Labs: Laboratory WBC 10.1 X10^3/uL (3.6-10.0) H 07/02/23 05:35 RBC 3.07 X10^6/uL (3.5-5.4) L 07/02/23 05:35 Hgb 8.9 g/dL (12.0-16.0) L 07/02/23 05:35 Hct 26.6 % (36.0-47.0) L 07/02/23 05:35 MCV 86.7 fL (80.0-100.0) 07/02/23 05:35 MCH 29.0 pg (27.0-34.0) 07/02/23 05:35 MCHC 33.5 g/dL (33.0-35.0) 07/02/23 05:35 RDW 16.2 % (11.6-16.5) 07/02/23 05:35 Plt Count 410 X10^3/uL (150.0-450.0) 07/02/23 05:35 MPV 7.8 fL (7.4-11.0) 07/02/23 05:35 Neut % (Auto) 69.9 % (42.0-75.0) 07/02/23 05:35 Lymph % (Auto) 7.3 % (21.0-51.0) L 07/02/23 05:35 [place] % (Auto) 7.3 % (0.0-13.0) 07/02/23 05:35 Eos % (Auto) 14.8 % (0.9-2.9) H 07/02/23 05:35 Baso % (Auto) 0.7 % (0.2-1.0) 07/02/23 05:35 Neut # (Auto) 7.0 x10^3/uL (2.2-4.8) H 07/02/23 05:35 Lymph # (Auto) 0.7 X10^3/uL (1.3-2.9) L 07/02/23 05:35 [place] # (Auto) 0.7 x10^3/uL (0.3-0.8) 07/02/23 05:35 Eos # (Auto) 1.5 x10^3/uL (0.0-0.2) H 07/02/23 05:35 Baso # (Auto) 0.1 X10^3/uL (0.0-0.1) 07/02/23 05:35 Absolute Nucleated RBC 0.1 /100WBC 07/02/23 05:35 PT 15.1 SECONDS (11.8-14.3) 07/01/23 09:58 INR Target Range - 07/01/23 09:58 INR 1.21 (0.8-1.3) 07/01/23 09:58 APTT 41.7 SECONDS (22.9-36.5) H 07/01/23 09:58 PTT Comment - 07/01/23 09:58 Sample Site Lbra 07/01/23 09:31 ABG pH 7.480 (7.35-7.45) H 07/01/23 09:31 ABG pCO2 45.0 mmHg (35.0-45.0) 07/01/23 09:31 ABG pO2 66.0 mmHg (80.0-100.0) L 07/01/23 09:31 ABG HCO3 33.5 mmol/L (22-26) H* 07/01/23 09:31 ABG O2 Saturation 94.0 % (90-100) 07/01/23 09:31 ABG Base Excess 8.9 mmol/L (-2.0-2.0) H 07/01/23 09:31 Henrry Test N/a 07/01/23 09:31 A-a Gradient 77.0 mmHg 07/01/23 09:31 FiO2 28.0 07/01/23 09:31 Blood Gas Comments Pt rush well elj 07/01/23 09:31 Sodium 139 mmol/L (136-145) 07/02/23 05:35 Corrected Sodium TNP 07/02/23 05:35 Potassium 4.3 mmol/L (3.5-5.1) 07/02/23 05:35 Chloride 104 mmol/L (98-107) 07/02/23 05:35 Carbon Dioxide 30.4 mmol/L (21-32) 07/02/23 05:35 BUN 16 mg/dL (7-18) 07/02/23 05:35 Creatinine 1.10 mg/dL (0.55-1.02) H 07/02/23 05:35 Est GFR (MDRD) Af Amer > 60 (>60) 07/02/23 05:35 Est GFR (MDRD) Non-Af 52 (>60) L 07/02/23 05:35 Glucose 90 mg/dL (65-99) 07/02/23 05:35 Lactic Acid 0.6 mmol/L (0.4-2.0) 07/01/23 09:58 Calcium 8.8 mg/dL (8.5-10.1) 07/02/23 05:35 Corrected Calcium 10.1 mg/dL (8.5-10.1) 07/02/23 05:35 Total Bilirubin 0.30 mg/dL (0.2-1.0) 07/02/23 05:35 AST 21 Units/L (15-37) 07/02/23 05:35 ALT 17 Units/L (12-78) 07/02/23 05:35 Alkaline Phosphatase 38 Units/L (46-116) L 07/02/23 05:35 Creatine Kinase 33 Units/L (26-192) 07/01/23 09:58 Troponin I High Sens 58.9 ng/L (4.0-60.0) 07/01/23 09:58 C-Reactive Protein 86.60 mg/L (0-3.0) H 07/01/23 09:58 B-Natriuretic Peptide 869 pg/mL (0-79) H 07/02/23 05:35 Total Protein 6.6 g/dL (6.4-8.2) 07/02/23 05:35 Albumin 2.4 g/dL (3.4-5.0) L 07/02/23 05:35 Globulin 4.2 g/dL (2.5-4.5) 07/02/23 05:35 Albumin/Globulin Ratio 0.6 Ratio (1.1-2.1) L 07/02/23 05:35 Specimen Type Clean catch urine 07/01/23 11:15 Urine Color Yellow (YELLOW) 07/01/23 11:15 Urine Appearance Clear (CLEAR) 07/01/23 11:15 Urine pH 8.0 (5.0 - 8.0) 07/01/23 11:15 Ur Specific [place] 1.010 (1.000-1.030) 07/01/23 11:15 Urine Protein Negative (NEGATIVE) 07/01/23 11:15 Urine Glucose (UA) Negative (NEGATIVE) 07/01/23 11:15 Urine Ketones Negative (NEGATIVE) 07/01/23 11:15 Urine Blood Negative (NEGATIVE) 07/01/23 11:15 Urine Nitrite Negative (NEGATIVE) 07/01/23 11:15 Urine Bilirubin Negative (NEGATIVE) 07/01/23 11:15 Urine Urobilinogen Normal (NORMAL) 07/01/23 11:15 Ur Leukocyte Esterase Negative (NEGATIVE) 07/01/23 11:15 Stl Occult Blood (IFOB) Negative (NEGATIVE) 07/01/23 19:30 Resp Viral Panel (PCR) See scanned report 07/01/23 13:00 Review of Systems Constitutional: Weakness Eyes: No Symptoms Reported Respiratory: Cough and Shortness of Breath Cardiovascular: Chest Pain Gastrointestinal: No Symptoms Reported Genitourinary: No Symptoms Reported Musculoskeletal: No Symptoms Reported Skin: No Symptoms Reported Neurological: Weakness Physical Exam Vital Signs: Vital Signs Temperature 97.9 F Pulse Rate [Right Brachial] 75 Respiratory Rate 18 Blood Pressure [Right Arm] 136/64 O2 Sat by Pulse Oximetry 94 Oriented: Normal Eyes: Normal Ear: Normal Nose: Normal Throat: Dry Respiratory: Diminished Throughout Cardiovascular: Normal : Normal Auscultation: Bowel Sounds: Normal Palpation: Normal Skin: Normal Musculoskeletal: Back:Thoracic and Back:Lumbar Psychiatric: Normal Mood Description: Calm Affect: Normal Speech Pattern: Clear Assessment/Plan (1) Pneumonia: Status: Acute Plan: ADMIT AIT RESPIRATORY PANEL, BLOOD CULTURES. CONTINUE IV LASIX, IV ABX VERIFY HOME MEDICATIONS SUPPLEMENTAL O2, RESP THERAPY STRICT I&OS BP CONTROL (2) Congestive heart failure (CHF): Status: Acute (3) Hypoxemia: Status: Acute
--- NOTE | 2023-07-03 11:52 | PCM.PROG ---
Progress Note Progress Note for Day of Date of Exam: 07/02/23 Subjective Subjective: Patient is a 72 year old WF, ER admission yesterday after presenting with complaints of worsening shortness of breath and intermittent chest discomfort since discharge from [facility] on 06/29/23. She was discharged home on 2L 02 and azithromycin. Patient was transported via EMS and EMT's reported her 02 Sat was 70-80's upon arrival. ER workup included a chest xray showing unchanged bronchopneumonia and left lung opacity. ER labs: BNP 1300, lactic acid 0.6, WBC 10.9, BUN 21, creatinine 1.1, PT 15.1, INR 1.21, troponin 58.9,ABG: pH 7.48.PCO2 45/P02 66/HC03 33/02SAT 94/FI02 28. Upon admission, pt was started on IV lasix and IV abx. We obtained an AIT respiratory swab and blood cultures- pending. AM labs: wbc 10.1, hgb 8.9, bun 16/creatinine 1.10. Morning vitals: 136/64-75-18-97.9-94% on 2L [place]. Past Medical Family Social History Allergies: Allergies codeine Adverse Reaction (Unknown, Verified 06/25/23 17:20) Vital Signs and I&O's Vital Signs: Vital Signs Temperature 97.4 F Temperature 97.4 F Temperature 97.4 F Temperature 97.5 F Pulse Rate [Right Brachial] 68 Pulse Rate [Right Brachial] 61 Pulse Rate [Right Brachial] 64 Pulse Rate [Right Brachial] 73 Respiratory Rate 18 Respiratory Rate 20 Respiratory Rate 20 Respiratory Rate 18 Blood Pressure [Left Arm] 149/70 Blood Pressure [Left Arm] 142/65 Blood Pressure [Left Arm] 142/65 Blood Pressure [Left Arm] 151/67 O2 Sat by Pulse Oximetry 95 O2 Sat by Pulse Oximetry 97 O2 Sat by Pulse Oximetry 96 O2 Sat by Pulse Oximetry 94 Intake and Output: Intake & Output 06/30/23 07/01/23 07/02/23 07/03/23 11:59 11:59 11:59 11:59 Intake Total 833 / 833 120 / 120 Balance 833 / 833 120 / 120 Physical Exam Oriented: Normal Eyes: Normal Ear: Normal Nose: Normal Throat: Dry Respiratory: Diminished Cardiovascular: Normal : Normal Auscultation: Bowel Sounds: Normal Palpation: Normal Tenderness: Normal Skin: Normal Musculoskeletal: Back:Thoracic and Back:Lumbar Psychiatric: Normal Mood Description: Calm Affect: Normal Speech Pattern: Clear Laboratory and Diagnostics 07/03/23 05:40 07/03/23 05:40 Labs: Laboratory WBC 10.1 X10^3/uL (3.6-10.0) H 07/02/23 05:35 RBC 3.07 X10^6/uL (3.5-5.4) L 07/02/23 05:35 Hgb 8.9 g/dL (12.0-16.0) L 07/02/23 05:35 Hct 26.6 % (36.0-47.0) L 07/02/23 05:35 MCV 86.7 fL (80.0-100.0) 07/02/23 05:35 MCH 29.0 pg (27.0-34.0) 07/02/23 05:35 MCHC 33.5 g/dL (33.0-35.0) 07/02/23 05:35 RDW 16.2 % (11.6-16.5) 07/02/23 05:35 Plt Count 410 X10^3/uL (150.0-450.0) 07/02/23 05:35 MPV 7.8 fL (7.4-11.0) 07/02/23 05:35 Neut % (Auto) 69.9 % (42.0-75.0) 07/02/23 05:35 Lymph % (Auto) 7.3 % (21.0-51.0) L 07/02/23 05:35 [place] % (Auto) 7.3 % (0.0-13.0) 07/02/23 05:35 Eos % (Auto) 14.8 % (0.9-2.9) H 07/02/23 05:35 Baso % (Auto) 0.7 % (0.2-1.0) 07/02/23 05:35 Neut # (Auto) 7.0 x10^3/uL (2.2-4.8) H 07/02/23 05:35 Lymph # (Auto) 0.7 X10^3/uL (1.3-2.9) L 07/02/23 05:35 [place] # (Auto) 0.7 x10^3/uL (0.3-0.8) 07/02/23 05:35 Eos # (Auto) 1.5 x10^3/uL (0.0-0.2) H 07/02/23 05:35 Baso # (Auto) 0.1 X10^3/uL (0.0-0.1) 07/02/23 05:35 Absolute Nucleated RBC 0.1 /100WBC 07/02/23 05:35 PT 15.1 SECONDS (11.8-14.3) 07/01/23 09:58 INR Target Range - 07/01/23 09:58 INR 1.21 (0.8-1.3) 07/01/23 09:58 APTT 41.7 SECONDS (22.9-36.5) H 07/01/23 09:58 PTT Comment - 07/01/23 09:58 Sample Site Lbra 07/01/23 09:31 ABG pH 7.480 (7.35-7.45) H 07/01/23 09:31 ABG pCO2 45.0 mmHg (35.0-45.0) 07/01/23 09:31 ABG pO2 66.0 mmHg (80.0-100.0) L 07/01/23 09:31 ABG HCO3 33.5 mmol/L (22-26) H* 07/01/23 09:31 ABG O2 Saturation 94.0 % (90-100) 07/01/23 09:31 ABG Base Excess 8.9 mmol/L (-2.0-2.0) H 07/01/23 09:31 Henrry Test N/a 07/01/23 09:31 A-a Gradient 77.0 mmHg 07/01/23 09:31 FiO2 28.0 07/01/23 09:31 Blood Gas Comments Pt rush well elj 07/01/23 09:31 Sodium 139 mmol/L (136-145) 07/02/23 05:35 Corrected Sodium TNP 07/02/23 05:35 Potassium 4.3 mmol/L (3.5-5.1) 07/02/23 05:35 Chloride 104 mmol/L (98-107) 07/02/23 05:35 Carbon Dioxide 30.4 mmol/L (21-32) 07/02/23 05:35 BUN 16 mg/dL (7-18) 07/02/23 05:35 Creatinine 1.10 mg/dL (0.55-1.02) H 07/02/23 05:35 Est GFR (MDRD) Af Amer > 60 (>60) 07/02/23 05:35 Est GFR (MDRD) Non-Af 52 (>60) L 07/02/23 05:35 Glucose 90 mg/dL (65-99) 07/02/23 05:35 Lactic Acid 0.6 mmol/L (0.4-2.0) 07/01/23 09:58 Calcium 8.8 mg/dL (8.5-10.1) 07/02/23 05:35 Corrected Calcium 10.1 mg/dL (8.5-10.1) 07/02/23 05:35 Total Bilirubin 0.30 mg/dL (0.2-1.0) 07/02/23 05:35 AST 21 Units/L (15-37) 07/02/23 05:35 ALT 17 Units/L (12-78) 07/02/23 05:35 Alkaline Phosphatase 38 Units/L (46-116) L 07/02/23 05:35 Creatine Kinase 33 Units/L (26-192) 07/01/23 09:58 Troponin I High Sens 58.9 ng/L (4.0-60.0) 07/01/23 09:58 C-Reactive Protein 86.60 mg/L (0-3.0) H 07/01/23 09:58 B-Natriuretic Peptide 869 pg/mL (0-79) H 07/02/23 05:35 Total Protein 6.6 g/dL (6.4-8.2) 07/02/23 05:35 Albumin 2.4 g/dL (3.4-5.0) L 07/02/23 05:35 Globulin 4.2 g/dL (2.5-4.5) 07/02/23 05:35 Albumin/Globulin Ratio 0.6 Ratio (1.1-2.1) L 07/02/23 05:35 Specimen Type Clean catch urine 07/01/23 11:15 Urine Color Yellow (YELLOW) 07/01/23 11:15 Urine Appearance Clear (CLEAR) 07/01/23 11:15 Urine pH 8.0 (5.0 - 8.0) 07/01/23 11:15 Ur Specific [place] 1.010 (1.000-1.030) 07/01/23 11:15 Urine Protein Negative (NEGATIVE) 07/01/23 11:15 Urine Glucose (UA) Negative (NEGATIVE) 07/01/23 11:15 Urine Ketones Negative (NEGATIVE) 07/01/23 11:15 Urine Blood Negative (NEGATIVE) 07/01/23 11:15 Urine Nitrite Negative (NEGATIVE) 07/01/23 11:15 Urine Bilirubin Negative (NEGATIVE) 07/01/23 11:15 Urine Urobilinogen Normal (NORMAL) 07/01/23 11:15 Ur Leukocyte Esterase Negative (NEGATIVE) 07/01/23 11:15 Stl Occult Blood (IFOB) Negative (NEGATIVE) 07/01/23 19:30 Resp Viral Panel (PCR) See scanned report 07/01/23 13:00 Plan (1) Pneumonia: Status: Acute Plan: Obtain chest xray, BNP stat. Continue IV abx, IV lasix, home medications, supplemental 02, respiratory therapy, strict I&O's, BP control. (2) Congestive heart failure (CHF): Status: Acute (3) Hypoxemia: Status: Acute
[2023-07-03] MEDS: TYLENOL 325 MG TAB PO PRN (15:58)
[2023-07-03] MEDS: TRICOR TAB 48 MG PO SCH (20:14)
[2023-07-04 05:11] LABS: BASOPHILS # (AUTO) 0.1 X10^3/uL (0.0-0.1); BASOPHILS % (AUTO) 1.2 % (0.2-1.0); WHITE BLOOD COUNT 8.9 X10^3/uL (3.6-10.0)
[2023-07-04 05:18] LABS: EOSINOPHILS # (AUTO) 1.3 x10^3/uL (0.0-0.2); EOSINOPHILS % (AUTO) 14.5 % (0.9-2.9); HEMATOCRIT 29.1 % (36.0-47.0); HEMOGLOBIN 9.6 g/dL (12.0-16.0); LYMPHOCYTES # (AUTO) 0.8 X10^3/uL (1.3-2.9); LYMPHOCYTES % (AUTO) 8.9 % (21.0-51.0); MEAN CORPUSCULAR HEMOGLOBIN 28.4 pg (27.0-34.0); MEAN CORPUSCULAR HGB CONC 33.1 g/dL (33.0-35.0); MEAN CORPUSCULAR VOLUME 85.8 fL (80.0-100.0); MEAN PLATELET VOLUME 8.1 fL (7.4-11.0); MONOCYTES # (AUTO) 0.9 x10^3/uL (0.3-0.8); MONOCYTES % (AUTO) 9.7 % (0.0-13.0); NEUTROPHILS # (AUTO) 5.9 x10^3/uL (2.2-4.8); NEUTROPHILS % (AUTO) 65.7 % (42.0-75.0); PLATELET COUNT 440 X10^3/uL (150.0-450.0); RED BLOOD COUNT 3.39 X10^6/uL (3.5-5.4); RED CELL DISTRIBUTION WIDTH 16.2 % (11.6-16.5)
[2023-07-04 05:26] LABS: ALANINE AMINOTRANSFERASE 17 Units/L (12-78); ALBUMIN 2.5 g/dL (3.4-5.0); ALKALINE PHOSPHATASE 46 Units/L (46-116); ASPARTATE AMINO TRANSFERASE 19 Units/L (15-37); BLOOD UREA NITROGEN 17 mg/dL (7-18); CALCIUM 9.3 mg/dL (8.5-10.1); CARBON DIOXIDE 36.2 mmol/L (21-32); CHLORIDE 100 mmol/L (98-107); COR CA(FOR HYPOALB) 10.5 mg/dL (8.5-10.1); CREATININE 1.39 mg/dL (0.55-1.02); GLUCOSE 96 mg/dL (65-99); POTASSIUM 4.3 mmol/L (3.5-5.1); SODIUM 138 mmol/L (136-145); TOTAL PROTEIN 6.8 g/dL (6.4-8.2); eGFR NON BLACK RACES 39 (>60)
[2023-07-04] MEDS ORDERED: ZITHROMAX INJ 500 MG VIAL IV ONE (09:36)
[2023-07-04] MEDS: LASIX IVP SCH (09:48)
--- NOTE | 2023-07-04 10:51 | RAD ---
EXAM:CHEST, 1 VIEWHISTORY:CHF, pneumonia;COMPARISON:07/03/2023FINDINGS: The trachea is midline. The cardiac silhouette is enlarged with a tortuous thoracic aorta . The lungs are clear without focal infiltrate or effusion. The bony thorax is unremarkable.IMPRESSION:No acute cardiopulmonary disease.THIS IS AN ELECTRONICALLY VERIFIED FINAL REPORT07/04/2023 10:30 AM - Electronically signed by Kwadwo Bishop MD
[2023-07-04] MEDS: NS 250 ML IV 250 ML IV ONE (13:54)
--- NOTE | 2023-07-04 19:24 | PCM.PROG ---
Progress Note Progress Note for Day of Date of Exam: 07/04/23 Subjective Subjective: Patient is a 72 year old WF, ER admission yesterday after presenting with complaints of worsening shortness of breath and intermittent chest discomfort since discharge from [facility] on 06/29/23. She was discharged home on 2L 02 and azithromycin. Patient was transported via EMS and EMT's reported her 02 Sat was 70-80's upon arrival. ER workup included a chest xray showing unchanged bronchopneumonia and left lung opacity. ER labs: BNP 1300, lactic acid 0.6, WBC 10.9, BUN 21, creatinine 1.1, PT 15.1, INR 1.21, troponin 58.9,ABG: pH 7.48.PCO2 45/P02 66/HC03 33/02SAT 94/FI02 28. Upon admission, pt was started on IV lasix and IV abx. We obtained an AIT respiratory swab and blood cultures- pending. AM labs: wbc 10.1, hgb 8.9, bun 16/creatinine 1.10. Morning vitals: 136/64-75-18-97.9-94% on 2L NC. Thursday, 04 July 2023 This morning the patient is feeling better she reports. Her vital signs are stable. She is at a 95% on 2 L nasal cannula. Her hemoglobin is down to 9.6 so we will monitor this again tomorrow morning. Her creatinine is at 1.39 with estimated GFR of 39. Creatinine calcium was slightly elevated at 10.5 check a PTH on her. Past Medical Family Social History Allergies: Allergies codeine Adverse Reaction (Unknown, Verified 06/25/23 17:20) Review of Systems ROS: No change since H&P Vital Signs and I&O's Vital Signs: Vital Signs Temperature 98.1 F Temperature 98.4 F Pulse Rate [Right Brachial] 62 Pulse Rate [Right Brachial] 68 Respiratory Rate 20 Respiratory Rate 18 Blood Pressure [Right Arm] 131/61 Blood Pressure [Right Arm] 147/65 O2 Sat by Pulse Oximetry 95 O2 Sat by Pulse Oximetry 95 Intake and Output: Intake & Output 07/02/23 07/03/23 07/04/23 07/05/23 11:59 11:59 11:59 11:59 Intake Total 833 / 833 770 / 770 1442 / 1442 1200 / 1200 Balance 833 / 833 770 / 770 1442 / 1442 1200 / 1200 Physical Exam Oriented: Normal Eyes: Normal Ear: Normal Nose: Normal Throat: Dry Respiratory: Diminished Cardiovascular: Normal : Normal Auscultation: Bowel Sounds: Normal Tenderness: Normal Skin: Normal Musculoskeletal: Back:Thoracic and Back:Lumbar Psychiatric: Normal Mood Description: Calm Affect: Normal Speech Pattern: Clear and Appropriate Laboratory and Diagnostics 07/04/23 04:18 07/04/23 04:18 Labs: 07/01/23 10:00 Blood Blood Culture - Preliminary 07/01/23 09:58 Blood Blood Culture - Preliminary Laboratory WBC 8.9 X10^3/uL (3.6-10.0) 07/04/23 04:18 RBC 3.39 X10^6/uL (3.5-5.4) L 07/04/23 04:18 Hgb 9.6 g/dL (12.0-16.0) L 07/04/23 04:18 Hct 29.1 % (36.0-47.0) L 07/04/23 04:18 MCV 85.8 fL (80.0-100.0) 07/04/23 04:18 MCH 28.4 pg (27.0-34.0) 07/04/23 04:18 MCHC 33.1 g/dL (33.0-35.0) 07/04/23 04:18 RDW 16.2 % (11.6-16.5) 07/04/23 04:18 Plt Count 440 X10^3/uL (150.0-450.0) 07/04/23 04:18 MPV 8.1 fL (7.4-11.0) 07/04/23 04:18 Neut % (Auto) 65.7 % (42.0-75.0) 07/04/23 04:18 Lymph % (Auto) 8.9 % (21.0-51.0) L 07/04/23 04:18 [place] % (Auto) 9.7 % (0.0-13.0) 07/04/23 04:18 Eos % (Auto) 14.5 % (0.9-2.9) H 07/04/23 04:18 Baso % (Auto) 1.2 % (0.2-1.0) H 07/04/23 04:18 Neut # (Auto) 5.9 x10^3/uL (2.2-4.8) H 07/04/23 04:18 Lymph # (Auto) 0.8 X10^3/uL (1.3-2.9) L 07/04/23 04:18 [place] # (Auto) 0.9 x10^3/uL (0.3-0.8) H 07/04/23 04:18 Eos # (Auto) 1.3 x10^3/uL (0.0-0.2) H 07/04/23 04:18 Baso # (Auto) 0.1 X10^3/uL (0.0-0.1) 07/04/23 04:18 Absolute Nucleated RBC 0.0 /100WBC 07/04/23 04:18 PT 15.1 SECONDS (11.8-14.3) 07/01/23 09:58 INR Target Range - 07/01/23 09:58 INR 1.21 (0.8-1.3) 07/01/23 09:58 APTT 41.7 SECONDS (22.9-36.5) H 07/01/23 09:58 PTT Comment - 07/01/23 09:58 Sample Site Rrad 07/03/23 07:39 ABG pH 7.450 (7.35-7.45) 07/03/23 07:39 ABG pCO2 49.0 mmHg (35.0-45.0) H 07/03/23 07:39 ABG pO2 53.0 mmHg (80.0-100.0) L 07/03/23 07:39 ABG HCO3 34.1 mmol/L (22-26) H* 07/03/23 07:39 ABG O2 Saturation 89.0 % (90-100) L 07/03/23 07:39 ABG Base Excess 8.7 mmol/L (-2.0-2.0) H 07/03/23 07:39 Henrry Test Pos 07/03/23 07:39 A-a Gradient 35.0 mmHg 07/03/23 07:39 FiO2 21.0 07/03/23 07:39 Blood Gas Comments Pt rush well. kg 07/03/23 07:39 Sodium 138 mmol/L (136-145) 07/04/23 04:18 Corrected Sodium TNP 07/04/23 04:18 Potassium 4.3 mmol/L (3.5-5.1) 07/04/23 04:18 Chloride 100 mmol/L (98-107) 07/04/23 04:18 Carbon Dioxide 36.2 mmol/L (21-32) H 07/04/23 04:18 BUN 17 mg/dL (7-18) 07/04/23 04:18 Creatinine 1.39 mg/dL (0.55-1.02) H 07/04/23 04:18 Est GFR (MDRD) Af Amer 48 (>60) L 07/04/23 04:18 Est GFR (MDRD) Non-Af 39 (>60) L 07/04/23 04:18 Glucose 96 mg/dL (65-99) 07/04/23 04:18 Lactic Acid 0.6 mmol/L (0.4-2.0) 07/01/23 09:58 Calcium 9.3 mg/dL (8.5-10.1) 07/04/23 04:18 Corrected Calcium 10.5 mg/dL (8.5-10.1) H 07/04/23 04:18 Total Bilirubin 0.20 mg/dL (0.2-1.0) 07/04/23 04:18 AST 19 Units/L (15-37) 07/04/23 04:18 ALT 17 Units/L (12-78) 07/04/23 04:18 Alkaline Phosphatase 46 Units/L (46-116) 07/04/23 04:18 Creatine Kinase 33 Units/L (26-192) 07/01/23 09:58 Troponin I High Sens 58.9 ng/L (4.0-60.0) 07/01/23 09:58 C-Reactive Protein 86.60 mg/L (0-3.0) H 07/01/23 09:58 B-Natriuretic Peptide 869 pg/mL (0-79) H 07/02/23 05:35 Total Protein 6.8 g/dL (6.4-8.2) 07/04/23 04:18 Albumin 2.5 g/dL (3.4-5.0) L 07/04/23 04:18 Globulin 4.3 g/dL (2.5-4.5) 07/04/23 04:18 Albumin/Globulin Ratio 0.6 Ratio (1.1-2.1) L 07/04/23 04:18 Specimen Type Clean catch urine 07/01/23 11:15 Urine Color Yellow (YELLOW) 07/01/23 11:15 Urine Appearance Clear (CLEAR) 07/01/23 11:15 Urine pH 8.0 (5.0 - 8.0) 07/01/23 11:15 Ur Specific [place] 1.010 (1.000-1.030) 07/01/23 11:15 Urine Protein Negative (NEGATIVE) 07/01/23 11:15 Urine Glucose (UA) Negative (NEGATIVE) 07/01/23 11:15 Urine Ketones Negative (NEGATIVE) 07/01/23 11:15 Urine Blood Negative (NEGATIVE) 07/01/23 11:15 Urine Nitrite Negative (NEGATIVE) 07/01/23 11:15 Urine Bilirubin Negative (NEGATIVE) 07/01/23 11:15 Urine Urobilinogen Normal (NORMAL) 07/01/23 11:15 Ur Leukocyte Esterase Negative (NEGATIVE) 07/01/23 11:15 Stl Occult Blood (IFOB) Negative (NEGATIVE) 07/01/23 19:30 Resp Viral Panel (PCR) See scanned report 07/01/23 13:00 Radiology Reviewed: Yes Plan (1) Pneumonia: Status: Acute Plan: ADMIT AIT RESPIRATORY PANEL, BLOOD CULTURES. CONTINUE IV LASIX, IV ABX VERIFY HOME MEDICATIONS SUPPLEMENTAL O2, RESP THERAPY STRICT I&OS BP CONTROL (2) Congestive heart failure (CHF): Status: Acute Plan: Daily chest x-ray and BNP's. Diurese if needed with IV Lasix. (3) Hypoxemia: Status: Acute Plan: Abdominal O2 via nasal cannula.
[2023-07-05 05:40] LABS: BASOPHILS # (AUTO) 0.1 X10^3/uL (0.0-0.1); EOSINOPHILS # (AUTO) 0.8 x10^3/uL (0.0-0.2); EOSINOPHILS % (AUTO) 9.4 % (0.9-2.9); HEMATOCRIT 28.6 % (36.0-47.0); HEMOGLOBIN 9.6 g/dL (12.0-16.0); LYMPHOCYTES # (AUTO) 0.9 X10^3/uL (1.3-2.9); LYMPHOCYTES % (AUTO) 10.4 % (21.0-51.0); MEAN CORPUSCULAR HEMOGLOBIN 28.9 pg (27.0-34.0); MEAN CORPUSCULAR HGB CONC 33.6 g/dL (33.0-35.0); MEAN PLATELET VOLUME 7.9 fL (7.4-11.0); MONOCYTES # (AUTO) 0.7 x10^3/uL (0.3-0.8); MONOCYTES % (AUTO) 8.2 % (0.0-13.0); PLATELET COUNT 409 X10^3/uL (150.0-450.0); RED BLOOD COUNT 3.33 X10^6/uL (3.5-5.4); RED CELL DISTRIBUTION WIDTH 16.3 % (11.6-16.5); WHITE BLOOD COUNT 8.5 X10^3/uL (3.6-10.0)
[2023-07-05 05:56] LABS: ALANINE AMINOTRANSFERASE 16 Units/L (12-78); ALBUMIN 2.5 g/dL (3.4-5.0); ALKALINE PHOSPHATASE 51 Units/L (46-116); ASPARTATE AMINO TRANSFERASE 21 Units/L (15-37); BLOOD UREA NITROGEN 21 mg/dL (7-18); CALCIUM 8.9 mg/dL (8.5-10.1); CARBON DIOXIDE 32.7 mmol/L (21-32); CHLORIDE 99 mmol/L (98-107); COR CA(FOR HYPOALB) 10.1 mg/dL (8.5-10.1); CREATININE 1.34 mg/dL (0.55-1.02); GLUCOSE 93 mg/dL (65-99); POTASSIUM 4.3 mmol/L (3.5-5.1); SODIUM 139 mmol/L (136-145); TOTAL PROTEIN 6.6 g/dL (6.4-8.2); eGFR NON BLACK RACES 41 (>60)
--- NOTE | 2023-07-05 20:27 | PCM.PROG ---
Progress Note Progress Note for Day of Date of Exam: 07/05/23 Subjective Subjective: Patient is a 72 year old WF, ER admission yesterday after presenting with complaints of worsening shortness of breath and intermittent chest discomfort since discharge from [facility] on 06/29/23. She was discharged home on 2L 02 and azithromycin. Patient was transported via EMS and EMT's reported her 02 Sat was 70-80's upon arrival. ER workup included a chest xray showing unchanged bronchopneumonia and left lung opacity. ER labs: BNP 1300, lactic acid 0.6, WBC 10.9, BUN 21, creatinine 1.1, PT 15.1, INR 1.21, troponin 58.9,ABG: pH 7.48.PCO2 45/P02 66/HC03 33/02SAT 94/FI02 28. Upon admission, pt was started on IV lasix and IV abx. We obtained an AIT respiratory swab and blood cultures- pending. AM labs: wbc 10.1, hgb 8.9, bun 16/creatinine 1.10. Morning vitals: 136/64-75-18-97.9-94% on 2L NC. Thursday, 05 July 2023 This morning the patient is feeling better she reports. Her vital signs are stable. She is satting 97% on room air this afternoon. Her white blood cell count today is 8500 and her creatinine is improved again at 1.34. She responded well to treatments and nebs so we will continue her treatment at this time for her pneumonia. Recheck routine labs in the a.m. Past Medical Family Social History Allergies: Allergies codeine Adverse Reaction (Unknown, Verified 06/25/23 17:20) Review of Systems ROS: No change since H&P Vital Signs and I&O's Vital Signs: Vital Signs Temperature 98 F Temperature 97.8 F Pulse Rate [Right Brachial] 65 Pulse Rate [Right Brachial] 63 Respiratory Rate 18 Respiratory Rate 16 Blood Pressure [Right Arm] 123/56 Blood Pressure [Right Arm] 132/58 O2 Sat by Pulse Oximetry 97 O2 Sat by Pulse Oximetry 98 Intake and Output: Intake & Output 07/03/23 07/04/23 07/05/23 07/06/23 11:59 11:59 11:59 11:59 Intake Total 770 / 770 1442 / 1442 2240 / 2240 1820 / 1820 Balance 770 / 770 1442 / 1442 2240 / 2240 1820 / 1820 Physical Exam Oriented: Normal Eyes: Normal Ear: Normal Nose: Normal Throat: Dry Respiratory: Diminished Cardiovascular: Normal : Normal Auscultation: Bowel Sounds: Normal Tenderness: Normal Skin: Normal Musculoskeletal: Back:Thoracic and Back:Lumbar Psychiatric: Normal Mood Description: Calm Affect: Normal Speech Pattern: Clear and Appropriate Laboratory and Diagnostics 07/05/23 04:10 07/05/23 04:10 Labs: 07/01/23 10:00 Blood Blood Culture - Preliminary 07/01/23 09:58 Blood Blood Culture - Preliminary Laboratory WBC 8.5 X10^3/uL (3.6-10.0) 07/05/23 04:10 RBC 3.33 X10^6/uL (3.5-5.4) L 07/05/23 04:10 Hgb 9.6 g/dL (12.0-16.0) L 07/05/23 04:10 Hct 28.6 % (36.0-47.0) L 07/05/23 04:10 MCV 86.0 fL (80.0-100.0) 07/05/23 04:10 MCH 28.9 pg (27.0-34.0) 07/05/23 04:10 MCHC 33.6 g/dL (33.0-35.0) 07/05/23 04:10 RDW 16.3 % (11.6-16.5) 07/05/23 04:10 Plt Count 409 X10^3/uL (150.0-450.0) 07/05/23 04:10 MPV 7.9 fL (7.4-11.0) 07/05/23 04:10 Neut % (Auto) 71.0 % (42.0-75.0) 07/05/23 04:10 Lymph % (Auto) 10.4 % (21.0-51.0) L 07/05/23 04:10 [place] % (Auto) 8.2 % (0.0-13.0) 07/05/23 04:10 Eos % (Auto) 9.4 % (0.9-2.9) H 07/05/23 04:10 Baso % (Auto) 1.0 % (0.2-1.0) 07/05/23 04:10 Neut # (Auto) 6.0 x10^3/uL (2.2-4.8) H 07/05/23 04:10 Lymph # (Auto) 0.9 X10^3/uL (1.3-2.9) L 07/05/23 04:10 [place] # (Auto) 0.7 x10^3/uL (0.3-0.8) 07/05/23 04:10 Eos # (Auto) 0.8 x10^3/uL (0.0-0.2) H 07/05/23 04:10 Baso # (Auto) 0.1 X10^3/uL (0.0-0.1) 07/05/23 04:10 Absolute Nucleated RBC 0.0 /100WBC 07/05/23 04:10 PT 15.1 SECONDS (11.8-14.3) 07/01/23 09:58 INR Target Range - 07/01/23 09:58 INR 1.21 (0.8-1.3) 07/01/23 09:58 APTT 41.7 SECONDS (22.9-36.5) H 07/01/23 09:58 PTT Comment - 07/01/23 09:58 Sample Site Rrad 07/03/23 07:39 ABG pH 7.450 (7.35-7.45) 07/03/23 07:39 ABG pCO2 49.0 mmHg (35.0-45.0) H 07/03/23 07:39 ABG pO2 53.0 mmHg (80.0-100.0) L 07/03/23 07:39 ABG HCO3 34.1 mmol/L (22-26) H* 07/03/23 07:39 ABG O2 Saturation 89.0 % (90-100) L 07/03/23 07:39 ABG Base Excess 8.7 mmol/L (-2.0-2.0) H 07/03/23 07:39 Henrry Test Pos 07/03/23 07:39 A-a Gradient 35.0 mmHg 07/03/23 07:39 FiO2 21.0 07/03/23 07:39 Blood Gas Comments Pt rush well. kg 07/03/23 07:39 Sodium 139 mmol/L (136-145) 07/05/23 04:10 Corrected Sodium TNP 07/05/23 04:10 Potassium 4.3 mmol/L (3.5-5.1) 07/05/23 04:10 Chloride 99 mmol/L (98-107) 07/05/23 04:10 Carbon Dioxide 32.7 mmol/L (21-32) H 07/05/23 04:10 BUN 21 mg/dL (7-18) H 07/05/23 04:10 Creatinine 1.34 mg/dL (0.55-1.02) H 07/05/23 04:10 Est GFR (MDRD) Af Amer 50 (>60) L 07/05/23 04:10 Est GFR (MDRD) Non-Af 41 (>60) L 07/05/23 04:10 Glucose 93 mg/dL (65-99) 07/05/23 04:10 Lactic Acid 0.6 mmol/L (0.4-2.0) 07/01/23 09:58 Calcium 8.9 mg/dL (8.5-10.1) 07/05/23 04:10 Corrected Calcium 10.1 mg/dL (8.5-10.1) 07/05/23 04:10 Total Bilirubin 0.20 mg/dL (0.2-1.0) 07/05/23 04:10 AST 21 Units/L (15-37) 07/05/23 04:10 ALT 16 Units/L (12-78) 07/05/23 04:10 Alkaline Phosphatase 51 Units/L (46-116) 07/05/23 04:10 Creatine Kinase 33 Units/L (26-192) 07/01/23 09:58 Troponin I High Sens 58.9 ng/L (4.0-60.0) 07/01/23 09:58 C-Reactive Protein 86.60 mg/L (0-3.0) H 07/01/23 09:58 B-Natriuretic Peptide 130 pg/mL (0-79) H 07/05/23 04:10 Total Protein 6.6 g/dL (6.4-8.2) 07/05/23 04:10 Albumin 2.5 g/dL (3.4-5.0) L 07/05/23 04:10 Globulin 4.1 g/dL (2.5-4.5) 07/05/23 04:10 Albumin/Globulin Ratio 0.6 Ratio (1.1-2.1) L 07/05/23 04:10 Specimen Type Clean catch urine 07/01/23 11:15 Urine Color Yellow (YELLOW) 07/01/23 11:15 Urine Appearance Clear (CLEAR) 07/01/23 11:15 Urine pH 8.0 (5.0 - 8.0) 07/01/23 11:15 Ur Specific [place] 1.010 (1.000-1.030) 07/01/23 11:15 Urine Protein Negative (NEGATIVE) 07/01/23 11:15 Urine Glucose (UA) Negative (NEGATIVE) 07/01/23 11:15 Urine Ketones Negative (NEGATIVE) 07/01/23 11:15 Urine Blood Negative (NEGATIVE) 07/01/23 11:15 Urine Nitrite Negative (NEGATIVE) 07/01/23 11:15 Urine Bilirubin Negative (NEGATIVE) 07/01/23 11:15 Urine Urobilinogen Normal (NORMAL) 07/01/23 11:15 Ur Leukocyte Esterase Negative (NEGATIVE) 07/01/23 11:15 Stl Occult Blood (IFOB) Negative (NEGATIVE) 07/01/23 19:30 Resp Viral Panel (PCR) See scanned report 07/01/23 13:00 Plan (1) Pneumonia: Status: Acute Plan: ADMIT AIT RESPIRATORY PANEL, BLOOD CULTURES. CONTINUE IV LASIX, IV ABX VERIFY HOME MEDICATIONS SUPPLEMENTAL O2, RESP THERAPY STRICT I&OS BP CONTROL (2) Congestive heart failure (CHF): Status: Acute Plan: Daily chest x-ray and BNP's. Diurese if needed with IV Lasix. (3) Hypoxemia: Status: Acute Plan: Abdominal O2 via nasal cannula.
[2023-07-05 23:43] VITALS: RESP 20
[2023-07-06 05:27] LABS: BASOPHILS # (AUTO) 0.1 X10^3/uL (0.0-0.1); BASOPHILS % (AUTO) 1.1 % (0.2-1.0); EOSINOPHILS # (AUTO) 0.6 x10^3/uL (0.0-0.2); EOSINOPHILS % (AUTO) 7.6 % (0.9-2.9); HEMATOCRIT 29.9 % (36.0-47.0); HEMOGLOBIN 9.9 g/dL (12.0-16.0); LYMPHOCYTES # (AUTO) 0.9 X10^3/uL (1.3-2.9); LYMPHOCYTES % (AUTO) 10.3 % (21.0-51.0); MEAN CORPUSCULAR HEMOGLOBIN 28.7 pg (27.0-34.0); MEAN CORPUSCULAR HGB CONC 33.2 g/dL (33.0-35.0); MEAN CORPUSCULAR VOLUME 86.6 fL (80.0-100.0); MONOCYTES # (AUTO) 0.7 x10^3/uL (0.3-0.8); MONOCYTES % (AUTO) 8.4 % (0.0-13.0); NEUTROPHILS % (AUTO) 72.6 % (42.0-75.0); PLATELET COUNT 445 X10^3/uL (150.0-450.0); RED BLOOD COUNT 3.45 X10^6/uL (3.5-5.4); RED CELL DISTRIBUTION WIDTH 16.3 % (11.6-16.5); WHITE BLOOD COUNT 8.3 X10^3/uL (3.6-10.0)
[2023-07-06 05:40] LABS: ALANINE AMINOTRANSFERASE 18 Units/L (12-78); ALBUMIN 2.6 g/dL (3.4-5.0); ALKALINE PHOSPHATASE 57 Units/L (46-116); ASPARTATE AMINO TRANSFERASE 22 Units/L (15-37); BLOOD UREA NITROGEN 22 mg/dL (7-18); CALCIUM 9.3 mg/dL (8.5-10.1); CARBON DIOXIDE 36.8 mmol/L (21-32); CHLORIDE 99 mmol/L (98-107); COR CA(FOR HYPOALB) 10.4 mg/dL (8.5-10.1); CREATININE 1.35 mg/dL (0.55-1.02); GLUCOSE 91 mg/dL (65-99); POTASSIUM 4.8 mmol/L (3.5-5.1); SODIUM 138 mmol/L (136-145); TOTAL PROTEIN 6.9 g/dL (6.4-8.2); eGFR NON BLACK RACES 41 (>60)
[2023-07-06 06:13] LABS: PLATELET MORPHOLOGY COMMENT NORMAL (NORMAL)
[2023-07-06 10:11] VITALS: O2SAT 98
--- NOTE | 2023-07-06 10:56 | RAD ---
EXAM:CHEST, 1 VIEWHISTORY:SOB, WEAKNESS; HTN, CARDIOMEGLY, HYST, ORTHO, DEFIBRILLATOR, CHF, COPDCOMPARISON:Prior study or studies were utilized for comparison during interpretation with the most relevant dated 07/04/2023TECHNIQUE:CHEST, 1 VIEWFINDINGS:Chest:Lines and tubes: Cardiac leads overlie the chest. A device projects over the right chest with lead projecting over the right cervical soft tissuesMediastinum: Cardiomegaly.Pulmonary vessels: There is pulmonary vascular congestion.Lung cheng: No suspicious airspace opacity.Pleura: No effusion. No pneumothorax.Bones and soft tissues: No acute osseous or soft tissue abnormality.IMPRESSION:1. No acute cardiopulmonary abnormality2. Mild pulmonary vascular congestion suggest heart failureTHIS IS AN ELECTRONICALLY VERIFIED FINAL REPORT07/06/2023 10:53 AM - Electronically signed by Oneil Harp MD
[2023-07-06] MEDS: INJECTAFER 750 MG in NS 250 ML IV 250 ML IV NR (11:46)
[2023-07-06 12:22] VITALS: BP 157/67; PULSE 64; TEMP 97.9
--- NOTE | 2023-07-08 09:08 | PCM.DCPLAN ---
DISCHARGE SUMMARY Admission Date Date of Admission: 07/01/23 Discharge Date Discharge Date: 07/06/23 Admission Diagnoses (1) Pneumonia: Status: Acute (2) Congestive heart failure (CHF): Status: Acute (3) Hypoxemia: Status: Acute Discharge Diagnoses Discharge Diagnosis: Resolved pneumonia, same as admission, add COPD and respiratory failure Discharge Medications Discharge Medications: Home Medication List clonidine HCl 0.2 mg tablet 0.2 mg PO DAILY 07/01/23 [History] Prescriptions: Hospital Course Latest Lab Results: Laboratory Last Values WBC 8.3 X10^3/uL (3.6-10.0) 07/06/23 04:27 RBC 3.45 X10^6/uL (3.5-5.4) L 07/06/23 04:27 Hgb 9.9 g/dL (12.0-16.0) L 07/06/23 04:27 Hct 29.9 % (36.0-47.0) L 07/06/23 04:27 MCV 86.6 fL (80.0-100.0) 07/06/23 04:27 MCH 28.7 pg (27.0-34.0) 07/06/23 04:27 MCHC 33.2 g/dL (33.0-35.0) 07/06/23 04: RDW 16.3 % (11.6-16.5) 07/06/23 04:27 Plt Count 445 X10^3/uL (150.0-450.0) 07/06/23 04:27 Plt Count Comment Adequate (ADEQUATE) 07/06/23 04:27 MPV 8.0 fL (7.4-11.0) 07/06/23 04:27 Neut % (Auto) 72.6 % (42.0-75.0) 07/06/23 04:27 Lymph % (Auto) 10.3 % (21.0-51.0) L 07/06/23 04:27 [place] % (Auto) 8.4 % (0.0-13.0) 07/06/23 04:27 Eos % (Auto) 7.6 % (0.9-2.9) H 07/06/23 04: Baso % (Auto) 1.1 % (0.2-1.0) H 07/06/23 04:27 Neut # (Auto) 6.0 x10^3/uL (2.2-4.8) H 07/06/23 04:27 Lymph # (Auto) 0.9 X10^3/uL (1.3-2.9) L 07/06/23 04:27 [place] # (Auto) 0.7 x10^3/uL (0.3-0.8) 07/06/23 04:27 Eos # (Auto) 0.6 x10^3/uL (0.0-0.2) H 07/06/23 04:27 Baso # (Auto) 0.1 X10^3/uL (0.0-0.1) 07/06/23 04: Absolute Nucleated RBC 0.0 /100WBC 07/06/23 04:27 Total Counted 100 07/06/23 04:27 Neutrophils % (Manual) 70 % (39-76) 07/06/23 04:27 Lymphocytes % (Manual) 19 % (13-43) 07/06/23 04:27 Monocytes % (Manual) 7 % (4-9) 07/06/23 04:27 Eosinophils % (Manual) 4 % (0-6) 07/06/23 04:27 Plt Morphology Comment Normal (NORMAL) 07/06/23 04: RBC Morphology Normal (NORMAL) 07/06/23 04:27 PT 15.1 SECONDS (11.8-14.3) 07/01/23 09:58 INR Target Range - 07/01/23 09:58 INR 1.21 (0.8-1.3) 07/01/23 09:58 APTT 41.7 SECONDS (22.9-36.5) H 07/01/23 09:58 PTT Comment - 07/01/23 09:58 Sample Site Rrad 07/03/23 07:39 ABG pH 7.450 (7.35-7.45) 07/03/23 07:39 ABG pCO2 49.0 mmHg (35.0-45.0) H 07/03/23 07:39 ABG pO2 53.0 mmHg (80.0-100.0) L 07/03/23 07:39 ABG HCO3 34.1 mmol/L (22-26) H* 07/03/23 07:39 ABG O2 Saturation 89.0 % (90-100) L 07/03/23 07:39 ABG Base Excess 8.7 mmol/L (-2.0-2.0) H 07/03/23 07:39 Henrry Test Pos 07/03/23 07:39 A-a Gradient 35.0 mmHg 07/03/23 07:39 FiO2 21.0 07/03/23 07:39 Blood Gas Comments Pt rush well. kg 07/03/23 07:39 Sodium 138 mmol/L (136-145) 07/06/23 04:27 Corrected Sodium TNP 07/06/23 04:27 Potassium 4.8 mmol/L (3.5-5.1) 07/06/23 04:27 Chloride 99 mmol/L (98-107) 07/06/23 04:27 Carbon Dioxide 36.8 mmol/L (21-32) H 07/06/23 04:27 BUN 22 mg/dL (7-18) H 07/06/23 04:27 Creatinine 1.35 mg/dL (0.55-1.02) H 07/06/23 04:27 Est GFR (MDRD) Af Amer 49 (>60) L 07/06/23 04:27 Est GFR (MDRD) Non-Af 41 (>60) L 07/06/23 04:27 Glucose 91 mg/dL (65-99) 07/06/23 04:27 Lactic Acid 0.6 mmol/L (0.4-2.0) 07/01/23 09:58 Calcium 9.3 mg/dL (8.5-10.1) 07/06/23 04:27 Corrected Calcium 10.4 mg/dL (8.5-10.1) H 07/06/23 04:27 Total Bilirubin 0.20 mg/dL (0.2-1.0) 07/06/23 04:27 AST 22 Units/L (15-37) 07/06/23 04:27 ALT 18 Units/L (12-78) 07/06/23 04:27 Alkaline Phosphatase 57 Units/L (46-116) 07/06/23 04:27 Creatine Kinase 33 Units/L (26-192) 07/01/23 09:58 Troponin I High Sens 58.9 ng/L (4.0-60.0) 07/01/23 09:58 C-Reactive Protein 86.60 mg/L (0-3.0) H 07/01/23 09:58 B-Natriuretic Peptide 130 pg/mL (0-79) H 07/05/23 04:10 Total Protein 6.9 g/dL (6.4-8.2) 07/06/23 04:27 Albumin 2.6 g/dL (3.4-5.0) L 07/06/23 04:27 Globulin 4.3 g/dL (2.5-4.5) 07/06/23 04:27 Albumin/Globulin Ratio 0.6 Ratio (1.1-2.1) L 07/06/23 04:27 Specimen Type Clean catch urine 07/01/23 11:15 Urine Color Yellow (YELLOW) 07/01/23 11:15 Urine Appearance Clear (CLEAR) 07/01/23 11:15 Urine pH 8.0 (5.0 - 8.0) 07/01/23 11:15 Ur Specific [place] 1.010 (1.000-1.030) 07/01/23 11:15 Urine Protein Negative (NEGATIVE) 07/01/23 11:15 Urine Glucose (UA) Negative (NEGATIVE) 07/01/23 11:15 Urine Ketones Negative (NEGATIVE) 07/01/23 11:15 Urine Blood Negative (NEGATIVE) 07/01/23 11:15 Urine Nitrite Negative (NEGATIVE) 07/01/23 11:15 Urine Bilirubin Negative (NEGATIVE) 07/01/23 11:15 Urine Urobilinogen Normal (NORMAL) 07/01/23 11:15 Ur Leukocyte Esterase Negative (NEGATIVE) 07/01/23 11:15 Stl Occult Blood (IFOB) Negative (NEGATIVE) 07/01/23 19:30 Resp Viral Panel (PCR) See scanned report 07/01/23 13:00 Hospital Course: Patient is a 72 year old WF, ER admission on 07/01/23 after presenting with complaints of worsening shortness of breath and intermittent chest discomfort since discharge from [facility] on 06/29/23. She was discharged home on 2L 02 and azithromycin. Patient was transported via EMS and EMT's reported her 02 Sat was 70-80's upon arrival. ER workup included a chest xray showing unchanged bronchopneumonia and left lung opacity. ER labs: BNP 1300, lactic acid 0.6, WBC 10.9, BUN 21, creatinine 1.1, PT 15.1, INR 1.21, troponin 58.9,ABG: pH 7.48.PCO2 45/P02 66/HC03 33/02SAT 94/FI02 28. Upon admission, pt was started on IV lasix and IV abx. We obtained an AIT respiratory swab and blood cultures, both negative. She had a repeat chest xray on 07/02/23 that showed heart failure vs pneumonia suggested and no signifant change from the day prior and another repeat chest xray on 07/02 that showed no change/new abnormality from day prior. ABG on 07/03/23: pH 7.450 .PCO2 49/P02 53/HC03 34/02SAT 89/FI02 21. Chest xray on showed no acute cardiopulonary disease. She has a history of anemia requiring transfusion and had previously been scheduled for an EGD on thursday outpatient. She had EGD on 07/02/[address] 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 She was recommended for a low fat diet and to continue on protonix 40mg po daily, continue to monitor hgb and infuse iron as needed. Her hgb has remained stable throughout stay at 8.9-9.9. BNP improved to 130 per 07/05/23 labs. She did have an injectafor infusion on 07/06/23. She also had a repeat chest xray on 07/06/23 that showed no acute cardiopulmonary abnormality, mild pulmonary vascular congestion suggest heart failure. 07/06/23 AM labs: wbc 8.3, hgb 9.9, BUN 22/Creatinine 1.35. Morning vitals: 139/63-65-20-97.1-99% on 2L NC. Patient states that she is feeling much improved, so we will allow her to discharge home on supplemental oxygen and po azithromycin. She will need a Trilogy device due to her history of COPD with chronic respiratory failure and Co2 retention. She has a history of PaC02 greater than 50 mmHg. Home BIPAP is insufficient due to severity of disease. COPD is the primary cause of CRF. Nocturnal and daytime volume ventilator is required. Without ventilator support, patient is at higher risk of increased hospital re-admission and/or . She will need to follow up with sales project administrator, Dr. Hull and has an appointment scheduled for 07/15/23 at 9AM and her PCP, appointment scheduled for 07/13/23 at 11AM. Please see discharge plan for list of discharge medications and modifications that we made, electronic medical record for diagnostic tests and labs. The patient was instructed to return to the ER if condition changed or worsened unexpectedly.
--- NOTE | 2023-07-08 09:08 | PCM.PROG ---
Progress Note Progress Note for Day of Date of Exam: 07/03/23 Subjective Subjective: Patient is a 72 year old WF, ER admission yesterday after presenting with complaints of worsening shortness of breath and intermittent chest discomfort since discharge from [facility] on 06/29/23. She was discharged home on 2L 02 and azithromycin. Patient was transported via EMS and EMT's reported her 02 Sat was 70-80's upon arrival. ER workup included a chest xray showing unchanged bronchopneumonia and left lung opacity. ER labs: BNP 1300, lactic acid 0.6, WBC 10.9, BUN 21, creatinine 1.1, PT 15.1, INR 1.21, troponin 58.9,ABG: pH 7.48.PCO2 45/P02 66/HC03 33/02SAT 94/FI02 28. Upon admission, pt was started on IV lasix and IV abx. We obtained an AIT respiratory swab, which were negative and blood cultures showing no growth. She has a history of anemia requiring transfusion and had previously been scheduled for an EGD on thursday outpatient. She had EGD on 07/02/[address] 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 She was recommended for a low fat diet and to continue on protonix 40mg po daily, continue to monitor hgb and infuse iron as needed. Yesterday, she had a repeat chest xray that showed heart failure vs pneumonia suggested and no significant change. We obtained a repeat chest xray this morning, pending results. AM labs: wbc 8.3, hgb 9.4, bun 17/creatinine 1.28. Morning vitals: 134/61-66-18-97.4-97% on 2L NC. AM ABG: ph 7.450, pCo2 49/po2 53/HCo3 34.1/o2 sat 89/FIo2 21. Past Medical Family Social History Allergies: Allergies codeine Adverse Reaction (Unknown, Verified 06/25/23 17:20) Review of Systems ROS: No change since H&P Vital Signs and I&O's Intake and Output: Intake & Output 07/04/23 07/05/23 07/06/23 07/07/23 11:59 11:59 11:59 11:59 Intake Total 1442 / 1442 2240 / 2240 1850 / 185 Balance 1442 / 1442 0 / 2240 1849 185 Physical Exam Oriented: Normal Eyes: Normal Ear: Normal Nose: Normal Throat: Dry Respiratory: Diminished Cardiovascular: Normal : Normal Auscultation: Bowel Sounds: Normal Tenderness: Normal Skin: Normal Musculoskeletal: Back:Thoracic and Back:Lumbar Psychiatric: Normal Mood Description: Calm Affect: Normal Speech Pattern: Clear and Appropriate Laboratory and Diagnostics 07/06/23 04:27 07/06/23 04:27 Labs: 07/01/23 10:00 Blood Blood Culture - Final 07/01/23 09:58 Blood Blood Culture - Final Laboratory WBC 8.3 X10^3/uL (3.6-10.0) 07/06/23 04:27 RBC 3.45 X10^6/uL (3.5-5.4) L 07/06/23 04:27 Hgb 9.9 g/dL (12.0-16.0) L 07/06/23 04:27 Hct 29.9 % (36.0-47.0) L 07/06/23 04:27 MCV 86.6 fL (80.0-100.0) 07/06/23 04:27 MCH 28.7 pg (27.0-34.0) 07/06/23 04:27 MCHC 33.2 g/dL (33.0-35.0) 07/06/23 04:27 RDW 16.3 % (11.6-16.5) 07/06/23 04:27 Plt Count 445 X10^3/uL (150.0-450.0) 07/06/23 04:27 Plt Count Comment Adequate (ADEQUATE) 07/06/23 04:27 MPV 8.0 fL (7.4-11.0) 07/06/23 04:27 Neut % (Auto) 72.6 % (42.0-75.0) 07/06/23 04:27 Lymph % (Auto) 10.3 % (21.0-51.0) L 07/06/23 04:27 [place] % (Auto) 8.4 % (0.0-13.0) 07/06/23 04:27 Eos % (Auto) 7.6 % (0.9-2.9) H 07/06/23 04:27 Baso % (Auto) 1.1 % (0.2-1.0) H 07/06/23 04:27 Neut # (Auto) 6.0 x10^3/uL (2.2-4.8) H 07/06/23 04:27 Lymph # (Auto) 0.9 X10^3/uL (1.3-2.9) L 07/06/23 04:27 [place] # (Auto) 0.7 x10^3/uL (0.3-0.8) 07/06/23 04:27 Eos # (Auto) 0.6 x10^3/uL (0.0-0.2) H 07/06/23 04:27 Baso # (Auto) 0.1 X10^3/uL (0.0-0.1) 07/06/23 04:27 Absolute Nucleated RBC 0.0 /100WBC 07/06/23 04:27 Total Counted 100 07/06/23 04:27 Neutrophils % (Manual) 70 % (39-76) 07/06/23 04:27 Lymphocytes % (Manual) 19 % (13-43) 07/06/23 04:27 Monocytes % (Manual) 7 % (4-9) 07/06/23 04:27 Eosinophils % (Manual) 4 % (0-6) 07/06/23 04:27 Plt Morphology Comment Normal (NORMAL) 07/06/23 04:27 RBC Morphology Normal (NORMAL) 07/06/23 04:27 PT 15.1 SECONDS (11.8-14.3) 07/01/23 09:58 INR Target Range - 07/01/23 09:58 INR 1.21 (0.8-1.3) 07/01/23 09:58 APTT 41.7 SECONDS (22.9-36.5) H 07/01/23 09:58 PTT Comment - 07/01/23 09:58 Sample Site Rrad 07/03/23 07:39 ABG pH 7.450 (7.35-7.45) 07/03/23 07:39 ABG pCO2 49.0 mmHg (35.0-45.0) H 07/03/23 07:39 ABG pO2 53.0 mmHg (80.0-100.0) L 07/03/23 07:39 ABG HCO3 34.1 mmol/L (22-26) H* 07/03/23 07:39 ABG O2 Saturation 89.0 % (90-100) L 07/03/23 07:39 ABG Base Excess 8.7 mmol/L (-2.0-2.0) H 07/03/23 07:39 Henrry Test Pos 07/03/23 07:39 A-a Gradient 35.0 mmHg 07/03/23 07:39 FiO2 21.0 07/03/23 07:39 Blood Gas Comments Pt rush well. kg 07/03/23 07:39 Sodium 138 mmol/L (136-145) 07/06/23 04:27 Corrected Sodium TNP 07/06/23 04:27 Potassium 4.8 mmol/L (3.5-5.1) 07/06/23 04:27 Chloride 99 mmol/L (98-107) 07/06/23 04:27 Carbon Dioxide 36.8 mmol/L (21-32) H 07/06/23 04:27 BUN 22 mg/dL (7-18) H 07/06/23 04:27 Creatinine 1.35 mg/dL (0.55-1.02) H 07/06/23 04:27 Est GFR (MDRD) Af Amer 49 (>60) L 07/06/23 04:27 Est GFR (MDRD) Non-Af 41 (>60) L 07/06/23 04:27 Glucose 91 mg/dL (65-99) 07/06/23 04:27 Lactic Acid 0.6 mmol/L (0.4-2.0) 07/01/23 09:58 Calcium 9.3 mg/dL (8.5-10.1) 07/06/23 04:27 Corrected Calcium 10.4 mg/dL (8.5-10.1) H 07/06/23 04:27 Total Bilirubin 0.20 mg/dL (0.2-1.0) 07/06/23 04:27 AST 22 Units/L (15-37) 07/06/23 04:27 ALT 18 Units/L (12-78) 07/06/23 04:27 Alkaline Phosphatase 57 Units/L (46-116) 07/06/23 04:27 Creatine Kinase 33 Units/L (26-192) 07/01/23 09:58 Troponin I High Sens 58.9 ng/L (4.0-60.0) 07/01/23 09:58 C-Reactive Protein 86.60 mg/L (0-3.0) H 07/01/23 09:58 B-Natriuretic Peptide 130 pg/mL (0-79) H 07/05/23 04:10 Total Protein 6.9 g/dL (6.4-8.2) 07/06/23 04:27 Albumin 2.6 g/dL (3.4-5.0) L 07/06/23 04:27 Globulin 4.3 g/dL (2.5-4.5) 07/06/23 04:27 Albumin/Globulin Ratio 0.6 Ratio (1.1-2.1) L 07/06/23 04:27 Specimen Type Clean catch urine 07/01/23 11:15 Urine Color Yellow (YELLOW) 07/01/23 11:15 Urine Appearance Clear (CLEAR) 07/01/23 11:15 Urine pH 8.0 (5.0 - 8.0) 07/01/23 11:15 Ur Specific [place] 1.010 (1.000-1.030) 07/01/23 11:15 Urine Protein Negative (NEGATIVE) 07/01/23 11:15 Urine Glucose (UA) Negative (NEGATIVE) 07/01/23 11:15 Urine Ketones Negative (NEGATIVE) 07/01/23 11:15 Urine Blood Negative (NEGATIVE) 07/01/23 11:15 Urine Nitrite Negative (NEGATIVE) 07/01/23 11:15 Urine Bilirubin Negative (NEGATIVE) 07/01/23 11:15 Urine Urobilinogen Normal (NORMAL) 07/01/23 11:15 Ur Leukocyte Esterase Negative (NEGATIVE) 07/01/23 11:15 Stl Occult Blood (IFOB) Negative (NEGATIVE) 07/01/23 19:30 Resp Viral Panel (PCR) See scanned report 07/01/23 13:00 Plan (1) Pneumonia: Status: Acute Plan: CONTINUE IV LASIX, IV ABX, HOME MEDICATIONS, SUPPLEMENTAL O2, RESP THERAPY STRICT I&OS BP CONTROL (2) Congestive heart failure (CHF): Status: Acute Plan: Daily chest x-ray and BNP's. Diurese if needed with IV Lasix. (3) Hypoxemia: Status: Acute Plan: Abdominal O2 via nasal cannula.
== END 2023-07-06 13:40 | disposition home health service (06) | DRG 193 ==
LOC: ER 09:19 → MED/SURG 09:19
PROVIDERS: ADMIT Internal Medicine; ATTEND Internal Medicine
DX: R09.02 Hypoxemia; R07.89 Other chest pain; Z59.86 Financial insecurity; K20.80 Other esophagitis without bleeding; D50.8 Other iron deficiency anemias; R53.1 Weakness; R79.1 Abnormal coagulation profile; K92.1 Melena; Z96.89 Presence of other specified functional implants; I25.10 Atherosclerotic heart disease of native coronary artery without angina pectoris; I11.0 Hypertensive heart disease with heart failure; K29.00 Acute gastritis without bleeding; I50.9 Heart failure, unspecified; J18.0 Bronchopneumonia, unspecified organism; R79.82 Elevated C-reactive protein (CRP); K31.811 Angiodysplasia of stomach and duodenum with bleeding; R94.31 Abnormal electrocardiogram [ECG] [EKG]; J44.9 Chronic obstructive pulmonary disease, unspecified

== ENCOUNTER 2024-04-08 21:15 | Inpatient (IN) ==
[2024-04-08 21:45] VITALS: BMI 36.8
[2024-04-08 22:02] LABS: ABG BASE EXCESS 2.6 mmol/L (-2.0-2.0)
[2024-04-08 22:03] LABS: ABG ALLEN TEST POS; ABG HCO3 30.5 mmol/L (22-26)
--- NOTE | 2024-04-08 22:10 | DR.SOBA ---
HPI Time Seen Time Seen by Provider: 04/08/24 22:08 Primary Care Physician Primary Care Physician: JERRY VANN Complaints Chief Complaint Doctors Comments: Brought in by [facility] according to the patient's granddaughter she has been having some shortness of breath all week but has become progressively worse over the last couple of days. She is home on home oxygen and she also has the new PAP machine. Chief Complaint:: PT IN ED VIA STETCHER PER [facility] WITH C/O DIFFICULTY BREATHING. PER GRANDDAUGHTER PT HAS BEEN HAVING TROUBLE BREATHING OFF AND ON ALL WEEK BUT TONIGHT IT HAS GOTTEN WORSE. PER EMS PT WAS SATING 75% ON 2 LITERS NC ON ARRIVAL. PT PLACED ON CPAP. Self Treatment fo Chief Complaint: SOLUMEDROL 125MG IV AND DUO NEB GIVEN PER EMS COVID-19 Coronavirus risk:travel/contact w/high risk person: No Has patient experienced Coronavirus symptoms: Yes Coronavirus symptoms experienced: Shortness of Breath Source History Provided: Family Member and EMS Mode of Arrival Mode of Arrival: Stretcher Timing Onset of Chief Complaint: 04/08/24 PMH PMH Past Medical History: Yes Past Medical History: Anxiety, Arthritis, CHF, COPD, Coronary Artery Disease, Depression, Dyslipidemia, GERD, Hypertension and Sleep Apnea Past Medical History Comment: A-FIB RLS Past Surgical History: Yes Surgical History: Angioplasty/Stents, Hysterectomy and Ortho Surgery Past Surgical History Comment: KIDNEY STENTS X 2 WATCHMAN Family History History of Family Medical Conditions: Yes Family Medical History: Diabetes Mellitus, Cancer, [place], Coronary Artery Disease, Heart Failure and Hypertension Social History Does patient currently use any type of tobacco product: No Have you used tobacco products in the last 12 months: No Type of Tobacco Use: None Does any household member use tobacco: No Alcohol Use: None Do you use any recreational Drugs:: No Lives With: Spouse Lives Where: Home Travel Risk Coronavirus risk:travel/contact w/high risk person: No Has patient experienced Coronavirus symptoms: Yes Coronavirus symptoms experienced: Shortness of Breath Infectious screening In the last 2 months have you had wt loss of >10#?: NO Have you had fever, night sweats or hemotysis?: No Have you traveled outside the country in the last 6 months?: No Isolation: Standard ROS Review of Systems Constitutional: Other (shortnes of breath with cough) Eyes: No Symptoms Reported ENTM: No Symptoms Reported Respiratoy: Non-Productive Cough and Short of Breath Cardiovascular: No Symptoms Reported Gastrointestinal/Abdominal: No Symptoms Reported Genitourinary: No Symptoms Reported Neurological: No Symptoms Reported Musculoskeletal: No Symptoms Reported Integumentary: No Symptoms Reported Hematologic/Lymphatic: No Symptoms Reported Endocrine: No Symptoms Reported Psychiatric: Other (agitated) PE Vital Signs Vitals: Vital Signs Temperature 97.7 F Pulse Rate 64 Pulse Rate 67 Pulse Rate 64 Pulse Rate 63 Pulse Rate 63 Pulse Rate 69 Pulse Rate 69 Pulse Rate 64 Pulse Rate 66 Pulse Rate 65 Pulse Rate 67 Pulse Rate 66 Pulse Rate 69 Pulse Rate 72 Pulse Rate 73 Pulse Rate 74 Pulse Rate 76 Respiratory Rate 28 Blood Pressure 143/65 Blood Pressure 148/67 Blood Pressure 117/60 Blood Pressure 119/60 Blood Pressure 148/65 Blood Pressure 169/73 O2 Sat by Pulse Oximetry 98 O2 Sat by Pulse Oximetry 98 O2 Sat by Pulse Oximetry 96 O2 Sat by Pulse Oximetry 95 O2 Sat by Pulse Oximetry 95 O2 Sat by Pulse Oximetry 92 O2 Sat by Pulse Oximetry 93 O2 Sat by Pulse Oximetry 95 O2 Sat by Pulse Oximetry 94 O2 Sat by Pulse Oximetry 93 O2 Sat by Pulse Oximetry 93 O2 Sat by Pulse Oximetry 93 O2 Sat by Pulse Oximetry 95 O2 Sat by Pulse Oximetry 97 O2 Sat by Pulse Oximetry 97 O2 Sat by Pulse Oximetry 97 O2 Sat by Pulse Oximetry 93 General Limitations: Physical Limitation (due to shortness of breath) General Appearance: In Distress (moderate distress) Head Head Exam: Normal Inspection, Atraumatic and Normocephalic Eyes Eye exam: Normal Appearance, PERRL and EOMI ENT ENT Exam: Normal Exam and Normal Oropharynx Neck Neck Exam: Normal Inspection, Full ROM and Trachea Midline Chest Chest Inspection: Normal Inspection Respiratory Respiratory Exam: Prolonged Expiratory Phase Respiratory Exam: Bilateral: Wheezing and Bilateral: Rhonchi Abdominal Exam Abdominal Exam: Normal Inspection Extremities Extremities Exam: Normal Inspection and Full ROM Back Back Exam: Normal Inspection Neurologic Neurological Exam: Alert and Oriented X3 Psychiatric Psychiatric Exam: Normal Affect Skin Skin Exam: Warm, Dry and Intact MDM Differential Diagnosis Differential Diagnosis: CHF, COPD and Respiratory Insufficiency COURSE Treatment Treatment: Patient was brought to the emergency room on the ambulance BiPAP. She is normally on home oxygen but according to the shredded filler hopper feeder she was satting at 78% before they applied their BiPAP at the scene. Then he came up about 96. The patient was also given Solu-Medrol 125 mg IV at the scene by the paramedics. She was received here and respiratory did transfer for her to a BiPAP. We did get labs on this patient and her BNP was 792 esterase showed the heart was large with findings suggestive moderate degree of pulmonary edema which appears slightly worse than her previous x-ray. She had a white blood cell count of 15.4 hemoglobin was 9.8 hematocrit is 30.4 the metabolic panel showed BUN of 40 creatinine 1.90 and a GFR of 27 her blood sugar was 133. We did a COVID respiratory panel that was negative we did initial ABG showed a pH of 7.30 pCO2 of 6162 pO2 was 82 HCO3 was 30.5 O2 sat was 95%. Patient was discussed with the on-call physician Dr. Enamorado at 00 35 she stated she would except the patient for admission for COPD exacerbation and CHF. This patient was given 40 mg of Lasix IV and had a Hope catheter placed. Will be continuing on Lasix 40 mg IV twice a day we will let respiratory wean down off of the BiPAP and we will give her some Solu-Medrol 60 mg IV every 12 hours. Patient and the patient family was told of the intent to admit for COPD exacerbation and for CHF and they were agreeable to the admission. ROR Labs Reviewed Laboratory Results Reviewed?: Yes 04/08/24 23:23 04/08/24 23:23 Laboratory: WBC 15.4 X10^3/uL (3.6-10.0) H 04/08/24 23:23 RBC 3.33 X10^6/uL (3.5-5.4) L 04/08/24 23:23 Hgb 9.8 g/dL (12.0-16.0) L 04/08/24 23:23 Hct 30.4 % (36.0-47.0) L 04/08/24 23:23 MCV 91.2 fL (80.0-100.0) 04/08/24 23:23 MCH 29.5 pg (27.0-34.0) 04/08/24 23:23 MCHC 32.4 g/dL (33.0-35.0) L 04/08/24 23:23 RDW 16.8 % (11.6-16.5) H 04/08/24 23:23 Plt Count 251 X10^3/uL (150.0-450.0) 04/08/24 23:23 Plt Count Comment Adequate (ADEQUATE) 04/08/24 23:23 MPV 9.3 fL (7.4-11.0) 04/08/24 23:23 Neut % (Auto) 93.0 % (42.0-75.0) H 04/08/24 23:23 Lymph % (Auto) 3.4 % (21.0-51.0) L 04/08/24 23:23 [place] % (Auto) 2.1 % (0.0-13.0) 04/08/24 23:23 Eos % (Auto) 0.8 % (0.9-2.9) L 04/08/24 23:23 Baso % (Auto) 0.7 % (0.2-1.0) 04/08/24 23:23 Neut # (Auto) 14.3 x10^3/uL (2.2-4.8) H 04/08/24 23:23 Lymph # (Auto) 0.5 X10^3/uL (1.3-2.9) L 04/08/24 23:23 [place] # (Auto) 0.3 x10^3/uL (0.3-0.8) 04/08/24 23:23 Eos # (Auto) 0.1 x10^3/uL (0.0-0.2) 04/08/24 23:23 Baso # (Auto) 0.1 X10^3/uL (0.0-0.1) 04/08/24 23:23 Absolute Nucleated RBC 0.0 /100WBC 04/08/24 23:23 Total Counted 100 04/08/24 23:23 Neutrophils % (Manual) 91 % (39-76) H 04/08/24 23:23 Lymphocytes % (Manual) 6 % (13-43) L 04/08/24 23:23 Monocytes % (Manual) 2 % (4-9) L 04/08/24 23:23 Eosinophils % (Manual) 1 % (0-6) 04/08/24 23:23 Plt Morphology Comment Normal (NORMAL) 04/08/24 23:23 RBC Morphology Normal (NORMAL) 04/08/24 23:23 Sample Site Rr 04/09/24 00:15 ABG pH 7.370 (7.35-7.45) 04/09/24 00:15 ABG pCO2 54.0 mmHg (35.0-45.0) H* 04/09/24 00:15 ABG pO2 74.0 mmHg (80.0-100.0) L 04/09/24 00:15 ABG HCO3 31.2 mmol/L (22-26) H* 04/09/24 00:15 ABG O2 Saturation 94.0 % (90-100) 04/09/24 00:15 ABG Base Excess 4.7 mmol/L (-2.0-2.0) H 04/09/24 00:15 Henrry Test Pos 04/09/24 00:15 A-a Gradient 72.0 mmHg 04/09/24 00:15 FiO2 30.0 04/09/24 00:15 Blood Gas Comments Avinash well sw 04/09/24 00:15 Sodium 142 mmol/L (136-145) 04/08/24 23:23 Corrected Sodium 143 mmol/L (136-145) 04/08/24 23:23 Potassium 4.4 mmol/L (3.5-5.1) 04/08/24 23:23 Chloride 105 mmol/L (98-107) 04/08/24 23:23 Carbon Dioxide 29.6 mmol/L (21-32) 04/08/24 23:23 BUN 40 mg/dL (7-18) H 04/08/24 23:23 Creatinine 1.90 mg/dL (0.55-1.02) H 04/08/24 23:23 Est GFR (MDRD) Af Amer 33 (>60) L 04/08/24 23:23 Est GFR (MDRD) Non-Af 27 (>60) L 04/08/24 23:23 Glucose 133 mg/dL (65-99) H 04/08/24 23:23 Calcium 8.5 mg/dL (8.5-10.1) 04/08/24 23:23 Corrected Calcium 9.1 mg/dL (8.5-10.1) 04/08/24 23:23 Total Bilirubin 0.40 mg/dL (0.2-1.0) 04/08/24 23:23 AST 22 Units/L (15-37) 04/08/24 23:23 ALT 22 Units/L (12-78) 04/08/24 23:23 Alkaline Phosphatase 72 Units/L (46-116) 04/08/24 23:23 B-Natriuretic Peptide 792 pg/mL (0-79) H 04/08/24 23:23 Total Protein 6.5 g/dL (6.4-8.2) 04/08/24 23:23 Albumin 3.2 g/dL (3.4-5.0) L 04/08/24 23:23 Globulin 3.3 g/dL (2.5-4.5) 04/08/24 23:23 Albumin/Globulin Ratio 1.0 Ratio (1.1-2.1) L 04/08/24 23:23 Specimen Type Catherized urine 04/09/24 00:27 Urine Color Pale yellow (YELLOW) 04/09/24 00:27 Urine Appearance Clear (CLEAR) 04/09/24 00: Urine pH 5.0 (5.0 - 8.0) 04/09/24 00:27 Ur Specific [place] 1.015 (1.000-1.030) 04/09/24 00:27 Urine Protein 1+ (NEGATIVE) 04/09/24 00:27 Urine Glucose (UA) Negative (NEGATIVE) 04/09/24 00: Urine Ketones Negative (NEGATIVE) 04/09/24 00:27 Urine Blood Negative (NEGATIVE) 04/09/24 00:27 Urine Nitrite Negative (NEGATIVE) 04/09/24 00: Urine Bilirubin Negative (NEGATIVE) 04/09/24 00: Urine Urobilinogen Normal (NORMAL) 04/09/24 00:27 Ur Leukocyte Esterase Negative (NEGATIVE) 04/09/24 00:27 Urine RBC None seen /HPF (0-3) 04/09/24 00:27 Urine WBC None seen /HPF (0-5) 04/09/24 00:27 Ur Squamous Epith Cells Rare /HPF (NEGATIVE) 04/09/24 00:27 Urine Bacteria Negative /HPF (NEGATIVE) 04/09/24 00:27 Ur Culture Indicated? No/not indicated 04/09/24 00:27 SARS-CoV-2 (PCR) Negative (NEGATIVE) 04/08/24 23:03 Influenza Type A (PCR) Negative (NEGATIVE) 04/08/24 23:03 Influenza Type B (PCR) Negative (NEGATIVE) 04/08/24 23:03 RSV (PCR) Negative (NEGATIVE) 04/08/24 23:03 Opioid Opioid Risk Tool Age ([place] box if 16-45): No History of Preadolescent Sexual Abuse: No Total: 0 Total Score Risk Category: Low Risk Copyright: Greg GIMENEZ predicting aberrant behaviors Discharge Plan Diagnosis Discharge Problem: COPD exacerbation, CHF (congestive heart failure) Discharge Plan Patient Disposition: ADMITTED INPATIENT Condition: Stable Prescriptions: No Action losartan 50 mg tablet 50 mg PO QDAY carvedilol 12.5 mg tablet 12.5 mg PO QAM citalopram 40 mg tablet 40 mg PO HS ropinirole 2 mg tablet 2 mg PO TID cyanocobalamin (vitamin B-12) 1,000 mcg tablet 1,000 mcg PO QDAY furosemide 40 mg tablet 40 mg PO QDAY atorvastatin 80 mg tablet 80 mg PO QHS Patient Comments: [NO ORIGINAL SIG] amlodipine 10 mg tablet 10 mg PO DAILY gabapentin 100 mg capsule 100 mg PO BID Patient Comments: [NO ORIGINAL SIG] ergocalciferol (vitamin D2) 1,250 mcg (50,000 unit) capsule 1,250 mcg PO QWEEK Rx Instructions: PT TAKES ON THURSDAY fluticasone propionate 50 mcg/actuation spray,suspension 1 spray INTRANASAL BID Patient Comments: [NO ORIGINAL SIG] simethicone [Gas-X] 80 mg Tablet,Chewable 80 mg PO DAILY melatonin 10 mg Tablet 10 mg PO HS Trelegy Ellipta 100-62.5-25 mcg blister with device 1 inh INHALATION DAILY magnesium oxide 400 mg magnesium Tablet 400 mg PO QDAY Aranesp (in polysorbate) 200 mcg/0.4 mL Syringe 200 mcg SUBCUT Q4W spironolactone 25 mg tablet 25 mg PO QAM pantoprazole 40 mg tablet,delayed release (DR/EC) 40 mg PO BID hydrochlorothiazide 25 mg tablet 25 mg PO QAM fenofibrate 160 mg tablet 160 mg PO QPM Health Concerns: Post Hospitalization: new medications and changes needed to prevent readmission or further decline. Pt educated and given instructions on all concerns. Plan of Treatment: Continue with present treatment and follow up plan. Pt is to keep follow up appointment as instructed and take medications as ordered. Orders to Discharge Patient Discharge Orders: Transfer (Routine); Ordered 04/09/24 Ordered By: Aram Tolliver Follow ups/Referrals Follow ups/Referrals: JERRY VANN [Primary Care Provider] - 3 days Instructions Stand Alone Forms: Find Help Web Site, Post Hospital Follow Up Care
[2024-04-08 23:36] LABS: HEMATOCRIT 30.4 % (36.0-47.0); HEMOGLOBIN 9.8 g/dL (12.0-16.0); MEAN CORPUSCULAR HEMOGLOBIN 29.5 pg (27.0-34.0); MEAN CORPUSCULAR HGB CONC 32.4 g/dL (33.0-35.0)
[2024-04-08 23:41] LABS: BASOPHILS # (AUTO) 0.1 X10^3/uL (0.0-0.1); BASOPHILS % (AUTO) 0.7 % (0.2-1.0); EOSINOPHILS # (AUTO) 0.1 x10^3/uL (0.0-0.2); EOSINOPHILS % (AUTO) 0.8 % (0.9-2.9); LYMPHOCYTES # (AUTO) 0.5 X10^3/uL (1.3-2.9); LYMPHOCYTES % (AUTO) 3.4 % (21.0-51.0); MEAN CORPUSCULAR VOLUME 91.2 fL (80.0-100.0); MEAN PLATELET VOLUME 9.3 fL (7.4-11.0); MONOCYTES # (AUTO) 0.3 x10^3/uL (0.3-0.8); MONOCYTES % (AUTO) 2.1 % (0.0-13.0); NEUTROPHILS # (AUTO) 14.3 x10^3/uL (2.2-4.8); PLATELET COUNT 251 X10^3/uL (150.0-450.0); RED BLOOD COUNT 3.33 X10^6/uL (3.5-5.4); RED CELL DISTRIBUTION WIDTH 16.8 % (11.6-16.5); WHITE BLOOD COUNT 15.4 X10^3/uL (3.6-10.0)
[2024-04-08 23:43] LABS: ALBUMIN 3.2 g/dL (3.4-5.0); CALCIUM 8.5 mg/dL (8.5-10.1); CARBON DIOXIDE 29.6 mmol/L (21-32); COR CA(FOR HYPOALB) 9.1 mg/dL (8.5-10.1); CREATININE 1.9 mg/dL (0.55-1.02); POTASSIUM 4.4 mmol/L (3.5-5.1); TOTAL PROTEIN 6.5 g/dL (6.4-8.2)
[2024-04-08 23:50] LABS: PLATELET MORPHOLOGY COMMENT NORMAL (NORMAL)
--- NOTE | 2024-04-09 00:02 | RAD ---
EXAM:FRONTAL VIEW CHEST X-RAYHISTORY:Shortness of breathCOMPARISON:02/11/2024FINDINGS:Elec tronic device is seen over the right hemithorax stable in position.Cervical fusion hardware is again noted.No focal consolidation is seen.The heart size is enlarged with findings suggesting moderate degree of pulmonary edema which appears slightly worse from the prior study.The mediastinum is unremarkable.There is no evidence of pleural effusion or gross pneumothorax.The trachea is midline.IMPRESSION:1. The heart size is enlarged with findings suggesting moderate degree of pulmonary edema which appears slightly worse from the prior study.THIS IS AN ELECTRONICALLY VERIFIED FINAL REPORT04/08/2024 11:59 PM - Electronically signed by Marc Carpenter MD
[2024-04-09 00:21] LABS: ABG BASE EXCESS 4.7 mmol/L (-2.0-2.0)
[2024-04-09 00:23] LABS: ABG ALLEN TEST POS; ABG HCO3 31.2 mmol/L (22-26)
[2024-04-09 00:35] LABS: BILIRUBIN,URINE NEGATIVE (NEGATIVE); BLOOD/HEMOGLOBIN,URINE NEGATIVE (NEGATIVE); GLUCOSE, URINE NEGATIVE (NEGATIVE); KETONES,URINE NEGATIVE (NEGATIVE); LEUKOCYTE ESTERASE ,URINE NEGATIVE (NEGATIVE); NITRITES,URINE NEGATIVE (NEGATIVE); PROTEIN,URINE 1+ (NEGATIVE); UROBILINOGEN,URINE NORMAL (NORMAL)
[2024-04-09] MEDS ORDERED: LASIX IVP ONE (00:35)
[2024-04-09 00:38] LABS: APPEARANCE,URINE CLEAR (CLEAR); BACTERIA,URINE NEGATIVE /HPF (NEGATIVE); COLOR,URINE PALE YELLOW (YELLOW); RBC,URINE NONE SEEN /HPF (0-3); SQUAMOUS EPITHELIAL CELL,UR RARE /HPF (NEGATIVE)
[2024-04-09] MEDS: LASIX IVP ONE (00:43)
[2024-04-09] MEDS: ROCEPHIN VIAL 1 GRAM IV ONE (00:57)
[2024-04-09] MEDS: ROCEPHIN VIAL 1 GRAM 1 G in NS 100 ML IV 100 ML IV SCH (01:40)
--- NOTE | 2024-04-09 02:10 | EKG ---
Test Reason : COPD Exacerbation Blood Pressure : */* mmHG Vent. Rate : 69 BPM Atrial Rate : 69 BPM P-R Int : 164 ms QRS Dur : 116 ms QT Int : 444 ms P-R-T Axes : 42 27 132 degrees QTc Int : 475 ms Sinus rhythm with premature atrial complexes Left ventricular hypertrophy with QRS widening and repolarization abnormality ( [place] product ) Abnormal ECG When compared with ECG of 01-JUL-2023 09:39, premature atrial complexes are now present Incomplete left bundle branch block is no longer present Confirmed by Zelalem Lopez MD ([id number]) on 04/09/2024 7:24:31 AM Referred By: Confirmed By: Zelalem Lopez MD
[2024-04-09 07:16] LABS: BASOPHILS % (AUTO) 0.5 % (0.2-1.0); EOSINOPHILS % (AUTO) 0.1 % (0.9-2.9); HEMATOCRIT 30.1 % (36.0-47.0); HEMOGLOBIN 10.1 g/dL (12.0-16.0); LYMPHOCYTES # (AUTO) 0.4 X10^3/uL (1.3-2.9); LYMPHOCYTES % (AUTO) 4.3 % (21.0-51.0); MEAN CORPUSCULAR HEMOGLOBIN 30.3 pg (27.0-34.0); MEAN CORPUSCULAR HGB CONC 33.5 g/dL (33.0-35.0); MEAN CORPUSCULAR VOLUME 90.5 fL (80.0-100.0); MEAN PLATELET VOLUME 9.5 fL (7.4-11.0); MONOCYTES # (AUTO) 0.1 x10^3/uL (0.3-0.8); NEUTROPHILS # (AUTO) 9.6 x10^3/uL (2.2-4.8); NEUTROPHILS % (AUTO) 94.1 % (42.0-75.0); PLATELET COUNT 231 X10^3/uL (150.0-450.0); RED BLOOD COUNT 3.33 X10^6/uL (3.5-5.4); RED CELL DISTRIBUTION WIDTH 16.2 % (11.6-16.5); WHITE BLOOD COUNT 10.2 X10^3/uL (3.6-10.0)
[2024-04-09 07:30] LABS: PLATELET MORPHOLOGY COMMENT NORMAL (NORMAL)
[2024-04-09 07:37] LABS: ALBUMIN 3.2 g/dL (3.4-5.0); CALCIUM 9.1 mg/dL (8.5-10.1); CARBON DIOXIDE 28.9 mmol/L (21-32); COR CA(FOR HYPOALB) 9.7 mg/dL (8.5-10.1); CREATININE 1.79 mg/dL (0.55-1.02); POTASSIUM 4.1 mmol/L (3.5-5.1); TOTAL PROTEIN 6.9 g/dL (6.4-8.2)
[2024-04-09] MEDS: SOLU-Medrol 40 MG VIAL IVP SCH (08:24)
[2024-04-09] MEDS: LASIX IVP SCH (08:24)
[2024-04-09] MEDS: MAG-OX TAB PO SCH (08:25)
[2024-04-09] MEDS: VITAMIN B-12 PO SCH (08:25)
[2024-04-09] MEDS: COREG TAB 12.5 MG PO SCH (08:25)
[2024-04-09] MEDS: PROTONIX TAB 40 MG PO SCH (08:25)
[2024-04-09] MEDS: COZAAR PO SCH (08:25)
[2024-04-09] MEDS: ALDACTONE TAB 25 MG PO SCH (08:25)
[2024-04-09] MEDS: NEURONTIN CAP 100 MG PO SCH (08:25)
[2024-04-09] MEDS: NS 250 ML IV 250 ML IV ONE (08:31)
[2024-04-09] MEDS: NORVASC TAB 10 MG PO SCH (08:32)
[2024-04-09] MEDS: PULMICORT NEB TX 0.5 MG NEB SCH (09:17)
[2024-04-09] MEDS: XOPENEX 1.25 MG/3 ML NEBULE NEB SCH (09:17)
--- NOTE | 2024-04-09 12:23 | DR.H&P ---
H&P History & Physical for Day of: H&P Date: 04/09/24 Chief Complaint Chief Complaint: sob History of Present Illness History of Present Illness: Ms Sanchez is a 73y/o female with a PMH of CAD, CHF, HTN, Home O2 use, COPD, HTN and HLD presented with worsening shortness of breath. ER work up showed CXR with pulmonary edema, ABG was consistent with hypoxia and hypercapnia. She was placed on BiPAP. BNP and renal function was france vated. She was started on IV lasix, IV antibiotics and steroids. She was admitted for COPD and CHF exacerbation. She is feeling better now. She is currently on 2L NC. She sees cardiology in [facility]. Labs/imaging reviewed: -WBC 10.2 Hgb 10.1 K 4.1 BUN/Cr 40/1.79 BNP 792 -AB.37/54/74/31 in 30% FiO2 -CXR: pulmonary edema Plan: Continue telemetry. Wean O2 as tolerated, continue IV antibiotics, steroids and nebs. AIT pending. Continue IV lasix. Monitor daily weight and I&Os. BiPAP prn. Echo ordered for Thursday to assess LV function. Resume home medications. Replace electrolytes prn. PT/OT as tolerated. Monitor AM labs/imaging. Time spent for clinical assessment, reviewing labs/imaging, physical exam, decision making and documentation greater than 45 mins. Past Medical History Past Medical History: Anxiety, Arthritis, CHF, COPD, Coronary Artery Disease, Depression, Dyslipidemia, GERD, Hypertension and Sleep Apnea Past Surgical History Surgical History: Angioplasty/Stents, Hysterectomy and Ortho Surgery Family History Family Medical History: Heart Failure, Sudden Cardiac and Hypertension Social History Does patient currently use any type of tobacco product: No Have you used tobacco products in the last 12 months: No Type of Tobacco Use: None Does any household member use tobacco: No Alcohol Use: None Drug Use: None Medications Home Medications: Home Medications Medication Instructions Recorded Confirmed Type carvedilol 12.5 mg tablet 12.5 mg PO QAM 06/26/22 04/08/24 History citalopram 40 mg tablet 40 mg PO HS 06/26/22 04/08/24 History losartan 50 mg tablet 50 mg PO QDAY 06/26/22 04/08/24 History ropinirole 2 mg tablet 2 mg PO TID 06/26/22 04/08/24 History cyanocobalamin (vitamin B-12) 1,000 mcg PO QDAY 10/06/22 04/08/24 History 1,000 mcg tablet fenofibrate 160 mg tablet 160 mg PO QPM 06/25/23 04/08/24 History hydrochlorothiazide 25 mg tablet 25 mg PO QAM 06/25/23 04/08/24 History pantoprazole 40 mg tablet,delayed 40 mg PO BID 06/25/23 04/08/24 History release spironolactone 25 mg tablet 25 mg PO QAM 06/25/23 04/08/24 History amlodipine 10 mg tablet 10 mg PO DAILY 04/08/24 04/08/24 History atorvastatin 80 mg tablet 80 mg PO QHS 04/08/24 04/08/24 History darbepoetin nitza in polysorbat 200 200 mcg subcut Q4W 04/08/24 04/08/24 History mcg/0.4 mL in polysorbate injection syringe (Aranesp) ergocalciferol (vitamin D2) 1,250 1,250 mcg PO QWEEK 04/08/24 04/08/24 History mcg (50,000 unit) capsule fluticasone fur. 100 mcg-umeclid 1 inh inhalation DAILY 04/08/24 04/08/24 History 62.5 mcg-vilant 25 mcg inhalat.powder (Trelegy Ellipta) fluticasone propionate 50 1 spray intranasal BID 04/08/24 04/08/24 History mcg/actuation nasal spray,suspension furosemide 40 mg tablet 40 mg PO QDAY 04/08/24 04/08/24 History gabapentin 100 mg capsule 100 mg PO BID 04/08/24 04/08/24 History magnesium oxide 400 mg PO QDAY 04/08/24 04/08/24 History melatonin 10 mg tablet 10 mg PO HS 04/08/24 04/08/24 History simethicone 80 mg chewable tablet 80 mg PO DAILY 04/08/24 04/08/24 History Allergies Allergies Allergy/AdvReac Type Severity Reaction Status Date / Time nystatin Allergy Verified 04/08/24 22:02 codeine AdvReac Unknown Verified 04/08/24 22:02 Labs 04/09/24 06:30 04/09/24 06:30 Labs: Laboratory WBC 10.2 X10^3/uL (3.6-10.0) H 04/09/24 06:30 RBC 3.33 X10^6/uL (3.5-5.4) L 04/09/24 06:30 Hgb 10.1 g/dL (12.0-16.0) L 04/09/24 06:30 Hct 30.1 % (36.0-47.0) L 04/09/24 06:30 MCV 90.5 fL (80.0-100.0) 04/09/24 06:30 MCH 30.3 pg (27.0-34.0) 04/09/24 06:30 MCHC 33.5 g/dL (33.0-35.0) 04/09/24 06: RDW 16.2 % (11.6-16.5) 04/09/24 06:30 Plt Count 231 X10^3/uL (150.0-450.0) 04/09/24 06:30 Plt Count Comment Adequate (ADEQUATE) 04/09/24: MPV 9.5 fL (7.4-11.0) 04/09/24 06:30 Neut % (Auto) 94.1 % (42.0-75.0) H 04/09/24 06:30 Lymph % (Auto) 4.3 % (21.0-51.0) L 04/09/24 06:30 [place] % (Auto) 1.0 % (0.0-13.0) 04/09/24 06:30 Eos % (Auto) 0.1 % (0.9-2.9) L 04/09/24 06:30 Baso % (Auto) 0.5 % (0.2-1.0) 04/09/24 06:30 Neut # (Auto) 9.6 x10^3/uL (2.2-4.8) H 04/09/24 06:30 Lymph # (Auto) 0.4 X10^3/uL (1.3-2.9) L 04/09/24 06:30 [place] # (Auto) 0.1 x10^3/uL (0.3-0.8) L 04/09/24 06:30 Eos # (Auto) 0.0 x10^3/uL (0.0-0.2) 04/09/24 06:30 Baso # (Auto) 0.0 X10^3/uL (0.0-0.1) 04/09/24 06:30 Absolute Nucleated RBC 0.0 /100WBC 04/09/24 06:30 Total Counted 100 04/09/24 06:30 Neutrophils % (Manual) 95 % (39-76) H 04/09/24 06:30 Lymphocytes % (Manual) 5 % (13-43) L 04/09/24 06:30 Monocytes % (Manual) 2 % (4-9) L 04/08/24 23:23 Eosinophils % (Manual) 1 % (0-6) 04/08/24 23:23 Plt Morphology Comment Normal (NORMAL) 04/09/24 06:30 RBC Morphology Normal (NORMAL) 04/09/24 06:30 Sample Site Rr 04/09/24 00:15 ABG pH 7.370 (7.35-7.45) 04/09/24 00:15 ABG pCO2 54.0 mmHg (35.0-45.0) H* 04/09/24 00:15 ABG pO2 74.0 mmHg (80.0-100.0) L 04/09/24 00:15 ABG HCO3 31.2 mmol/L (22-26) H* 04/09/24 00:15 ABG O2 Saturation 94.0 % (90-100) 04/09/24 00:15 ABG Base Excess 4.7 mmol/L (-2.0-2.0) H 04/09/24 00:15 Henrry Test Pos 04/09/24 00:15 A-a Gradient 72.0 mmHg 04/09/24 00:15 FiO2 30.0 04/09/24 00:15 Blood Gas Comments Avinash well sw 04/09/24 00:15 Sodium 142 mmol/L (136-145) 04/09/24 06:30 Corrected Sodium 143 mmol/L (136-145) 04/09/24 06:30 Potassium 4.1 mmol/L (3.5-5.1) 04/09/24 06:30 Chloride 105 mmol/L (98-107) 04/09/24 06:30 Carbon Dioxide 28.9 mmol/L (21-32) 04/09/24 06:30 BUN 40 mg/dL (7-18) H 04/09/24 06:30 Creatinine 1.79 mg/dL (0.55-1.02) H 04/09/24 06:30 Est GFR (MDRD) Af Amer 36 (>60) L 04/09/24 06:30 Est GFR (MDRD) Non-Af 29 (>60) L 04/09/24 06:30 Glucose 145 mg/dL (65-99) H 04/09/24 06:30 Calcium 9.1 mg/dL (8.5-10.1) 04/09/24 06:30 Corrected Calcium 9.7 mg/dL (8.5-10.1) 04/09/24 06:30 Total Bilirubin 0.50 mg/dL (0.2-1.0) 04/09/24 06:30 AST 27 Units/L (15-37) 04/09/24 06:30 ALT 20 Units/L (12-78) 04/09/24 06:30 Alkaline Phosphatase 58 Units/L (46-116) 04/09/24 06:30 B-Natriuretic Peptide 792 pg/mL (0-79) H 04/08/24 23:23 Total Protein 6.9 g/dL (6.4-8.2) 04/09/24 06:30 Albumin 3.2 g/dL (3.4-5.0) L 04/09/24 06:30 Globulin 3.7 g/dL (2.5-4.5) 04/09/24 06:30 Albumin/Globulin Ratio 0.9 Ratio (1.1-2.1) L 04/09/24 06:30 Specimen Type Catherized urine 04/09/24 00:27 Urine Color Pale yellow (YELLOW) 04/09/24 00:27 Urine Appearance Clear (CLEAR) 04/09/24 00: Urine pH 5.0 (5.0 - 8.0) 04/09/24 00:27 Ur Specific [place] 1.015 (1.000-1.030) 04/09/24 00:27 Urine Protein 1+ (NEGATIVE) 04/09/24 00:27 Urine Glucose (UA) Negative (NEGATIVE) 04/09/24 00: Urine Ketones Negative (NEGATIVE) 04/09/24 00: Urine Blood Negative (NEGATIVE) 04/09/24 00:27 Urine Nitrite Negative (NEGATIVE) 04/09/24 00:27 Urine Bilirubin Negative (NEGATIVE) 04/09/24 00:27 Urine Urobilinogen Normal (NORMAL) 04/09/24 00:27 Ur Leukocyte Esterase Negative (NEGATIVE) 04/09/24 00:27 Urine RBC None seen /HPF (0-3) 04/09/24 00:27 Urine WBC None seen /HPF (0-5) 04/09/24 00:27 Ur Squamous Epith Cells Rare /HPF (NEGATIVE) 04/09/24 00:27 Urine Bacteria Negative /HPF (NEGATIVE) 04/09/24 00:27 Ur Culture Indicated? No/not indicated 04/09/24 00:27 SARS-CoV-2 (PCR) Negative (NEGATIVE) 04/08/24 23:03 Influenza Type A (PCR) Negative (NEGATIVE) 04/08/24 23:03 Influenza Type B (PCR) Negative (NEGATIVE) 04/08/24 23:03 RSV (PCR) Negative (NEGATIVE) 04/08/24 23:03 Review of Systems Constitutional: Weakness Eyes: No Symptoms Reported ENT: No Symptoms Reported Respiratory: Cough, Shortness of Breath and SOB with Excertion Cardiovascular: No Symptoms Reported Gastrointestinal: No Symptoms Reported Genitourinary: No Symptoms Reported Musculoskeletal: No Symptoms Reported Skin: No Symptoms Reported Neurological: No Symptoms Reported Physical Exam Vital Signs: Vital Signs Temperature 98 F Temperature 97.8 F Pulse Rate [Left Radial] 75 Pulse Rate [Left Radial] 68 Pulse Rate 74 Respiratory Rate 21 Respiratory Rate 22 Blood Pressure [Right Arm] 144/66 Blood Pressure [Right Arm] 150/67 O2 Sat by Pulse Oximetry 96 O2 Sat by Pulse Oximetry 95 O2 Sat by Pulse Oximetry 96 Oriented: Normal Respiratory: Diminished Throughout, RLL Rales and LLL Rales Cardiovascular: Normal Auscultation: Bowel Sounds: Normal Palpation: Normal Tenderness: Normal Skin: Normal Musculoskeletal: Normal Psychiatric: Normal Mood Description: Calm Affect: Normal Speech Pattern: Clear and Appropriate Assessment/Plan (1) Acute respiratory failure: Qualifiers: Respiratory failure complication: hypoxia and hypercapnia Qualified Code(s): J96.01 - Acute respiratory failure with hypoxia; J96.02 - Acute respiratory failure with hypercapnia Status: Acute (2) CHF exacerbation: Status: Acute (3) COPD exacerbation: Status: Acute (4) Hypertension: Qualifiers: Hypertension type: primary hypertension Qualified Code(s): I10 - Essential (primary) hypertension Status: Chronic (5) CAD (coronary artery disease): Status: Chronic Review H&P Reviewed: Yes Patient was examined?: Yes
[2024-04-09] MEDS: CELEXA PO SCH (21:48)
[2024-04-09] MEDS: TRICOR TAB 160 MG PO SCH (21:48)
[2024-04-09] MEDS: LIPITOR TAB 80 MG PO SCH (21:49)
[2024-04-09] MEDS: RESTORIL CAP 15 MG PO PRN (23:17)
[2024-04-10 07:04] LABS: BASOPHILS % (AUTO) 0.3 % (0.2-1.0); HEMATOCRIT 30.5 % (36.0-47.0); HEMOGLOBIN 10.3 g/dL (12.0-16.0); LYMPHOCYTES # (AUTO) 0.6 X10^3/uL (1.3-2.9); LYMPHOCYTES % (AUTO) 5.8 % (21.0-51.0); MEAN CORPUSCULAR HEMOGLOBIN 30.2 pg (27.0-34.0); MEAN CORPUSCULAR HGB CONC 33.7 g/dL (33.0-35.0); MEAN CORPUSCULAR VOLUME 89.6 fL (80.0-100.0); MEAN PLATELET VOLUME 9.5 fL (7.4-11.0); MONOCYTES # (AUTO) 0.3 x10^3/uL (0.3-0.8); MONOCYTES % (AUTO) 2.7 % (0.0-13.0); NEUTROPHILS % (AUTO) 91.2 % (42.0-75.0); PLATELET COUNT 258 X10^3/uL (150.0-450.0); RED CELL DISTRIBUTION WIDTH 16.3 % (11.6-16.5); WHITE BLOOD COUNT 10.9 X10^3/uL (3.6-10.0)
[2024-04-10 07:19] LABS: ALBUMIN 3.1 g/dL (3.4-5.0); CALCIUM 9.2 mg/dL (8.5-10.1); CARBON DIOXIDE 32.7 mmol/L (21-32); COR CA(FOR HYPOALB) 9.9 mg/dL (8.5-10.1); CREATININE 1.81 mg/dL (0.55-1.02); TOTAL PROTEIN 6.8 g/dL (6.4-8.2)
[2024-04-10 07:57] LABS: PLATELET MORPHOLOGY COMMENT NORMAL (NORMAL)
--- NOTE | 2024-04-10 12:03 | PCM.PROG ---
Progress Note Progress Note for Day of Date of Exam: 04/10/24 Subjective Subjective: Patient seen at bedside, no acute events overnight. She is currently on 4L NC. She did use the BiPAP last night. She is feeling better, abdominal distention has improved. She does use 2L NC at home. She is currently admitted for COPD and CHF exacerbation. She is on IV antibiotics, steroids and IV lasix. Labs/imaging reviewed: -WBC 4.2 Hgb 13.0 K 4.4 Na 140 Cr 0.73 Plan: Continue telemetry, IV lasix. Monitor I&Os. Continue IV antibiotics and steroids. Echo pending. Wean O2 as tolerated. Replace electrolytes prn. Ambulate as tolerated. Continue home medications. Monitor AM labs/imaging. Past Medical Family Social History Allergies: Allergies nystatin Allergy (Verified 04/08/24 22:02) codeine Adverse Reaction (Unknown, Verified 04/08/24 22:02) Vital Signs and I&O's Vital Signs: Vital Signs Temperature 97.8 F Temperature 98.4 F Pulse Rate [Left Radial] 71 Pulse Rate [Left Radial] 64 Pulse Rate 71 Respiratory Rate 23 Respiratory Rate 21 Blood Pressure [Right Arm] 141/63 Blood Pressure [Right Arm] 126/63 O2 Sat by Pulse Oximetry 98 O2 Sat by Pulse Oximetry 99 O2 Sat by Pulse Oximetry 98 Intake and Output: Intake & Output 04/07/24 04/08/24 04/09/24 04/10/24 23:59 23:59 23:59 23:59 Intake Total 1308 / 1308 250 / 250 Output Total 4140 / 4140 600 / 600 Balance -2832 / -2832 -350 / -350 Physical Exam Oriented: Normal Respiratory: Generalized, Diminished and Rales Cardiovascular: Normal Auscultation: Bowel Sounds: Normal Palpation: Normal Tenderness: Normal Skin: Normal Musculoskeletal: Normal Psychiatric: Normal Mood Description: Calm Affect: Normal Speech Pattern: Clear and Appropriate Laboratory and Diagnostics 04/10/24 06:23 04/10/24 06:23 Labs: Laboratory WBC 10.9 X10^3/uL (3.6-10.0) H 04/10/24 06:23 RBC 3.40 X10^6/uL (3.5-5.4) L 04/10/24 06:23 Hgb 10.3 g/dL (12.0-16.0) L 04/10/24 06:23 Hct 30.5 % (36.0-47.0) L 04/10/24 06:23 MCV 89.6 fL (80.0-100.0) 04/10/24 06:23 MCH 30.2 pg (27.0-34.0) 04/10/24 06: MCHC 33.7 g/dL (33.0-35.0) 04/10/24 06: RDW 16.3 % (11.6-16.5) 04/10/24 06:23 Plt Count 258 X10^3/uL (150.0-450.0) 04/10/24 06: Plt Count Comment Adequate (ADEQUATE) 04/10/24 06: MPV 9.5 fL (7.4-11.0) 04/10/24 06:23 Neut % (Auto) 91.2 % (42.0-75.0) H 04/10/24 06:23 Lymph % (Auto) 5.8 % (21.0-51.0) L 04/10/24 06:23 Grand % (Auto) 2.7 % (0.0-13.0) 04/10/24 06:23 Eos % (Auto) 0.0 % (0.9-2.9) L 04/10/24 06: Baso % (Auto) 0.3 % (0.2-1.0) 04/10/24 06:23 Neut # (Auto) 10.0 x10^3/uL (2.2-4.8) H 04/10/24 06:23 Lymph # (Auto) 0.6 X10^3/uL (1.3-2.9) L 04/10/24 06:23 [place] # (Auto) 0.3 x10^3/uL (0.3-0.8) 04/10/24 06:23 Eos # (Auto) 0.0 x10^3/uL (0.0-0.2) 04/10/24 06:23 Baso # (Auto) 0.0 X10^3/uL (0.0-0.1) 04/10/24 06: Absolute Nucleated RBC 0.0 /100WBC 04/10/24 06:23 Total Counted 100 04/10/24 06:23 Neutrophils % (Manual) 95 % (39-76) H 04/10/24 06:23 Lymphocytes % (Manual) 4 % (13-43) L 04/10/24 06:23 Monocytes % (Manual) 1 % (4-9) L 04/10/24 06:23 Eosinophils % (Manual) 1 % (0-6) 04/08/24 23:23 Plt Morphology Comment Normal (NORMAL) 04/10/24 06:23 RBC Morphology Normal (NORMAL) 04/10/24 06:23 Sample Site Rr 04/09/24 00:15 ABG pH 7.370 (7.35-7.45) 04/09/24 00:15 ABG pCO2 54.0 mmHg (35.0-45.0) H* 04/09/24 00:15 ABG pO2 74.0 mmHg (80.0-100.0) L 04/09/24 00:15 ABG HCO3 31.2 mmol/L (22-26) H* 04/09/24 00:15 ABG O2 Saturation 94.0 % (90-100) 04/09/24 00:15 ABG Base Excess 4.7 mmol/L (-2.0-2.0) H 04/09/24 00:15 Henrry Test Pos 04/09/24 00:15 A-a Gradient 72.0 mmHg 04/09/24 00:15 FiO2 30.0 04/09/24 00:15 Blood Gas Comments Avinash well sw 04/09/24 00:15 Sodium 141 mmol/L (136-145) 04/10/24 06:23 Corrected Sodium 142 mmol/L (136-145) 04/10/24 06:23 Potassium 4.0 mmol/L (3.5-5.1) 04/10/24 06:23 Chloride 101 mmol/L (98-107) 04/10/24 06:23 Carbon Dioxide 32.7 mmol/L (21-32) H 04/10/24 06:23 BUN 46 mg/dL (7-18) H 04/10/24 06:23 Creatinine 1.81 mg/dL (0.55-1.02) H 04/10/24 06:23 Est GFR (MDRD) Af Amer 35 (>60) L 04/10/24 06:23 Est GFR (MDRD) Non-Af 29 (>60) L 04/10/24 06:23 Glucose 148 mg/dL (65-99) H 04/10/24 06:23 Calcium 9.2 mg/dL (8.5-10.1) 04/10/24 06:23 Corrected Calcium 9.9 mg/dL (8.5-10.1) 04/10/24 06:23 Total Bilirubin 0.30 mg/dL (0.2-1.0) 04/10/24 06:23 AST 21 Units/L (15-37) 04/10/24 06:23 ALT 20 Units/L (12-78) 04/10/24 06:23 Alkaline Phosphatase 49 Units/L (46-116) 04/10/24 06:23 B-Natriuretic Peptide 379 pg/mL (0-79) H 04/10/24 06:23 Total Protein 6.8 g/dL (6.4-8.2) 04/10/24 06:23 Albumin 3.1 g/dL (3.4-5.0) L 04/10/24 06:23 Globulin 3.7 g/dL (2.5-4.5) 04/10/24 06:23 Albumin/Globulin Ratio 0.8 Ratio (1.1-2.1) L 04/10/24 06:23 Specimen Type Catherized urine 04/09/24 00:27 Urine Color Pale yellow (YELLOW) 04/09/24 00:27 Urine Appearance Clear (CLEAR) 04/09/24 00: Urine pH 5.0 (5.0 - 8.0) 04/09/24 00: Ur Specific [place] 1.015 (1.000-1.030) 04/09/24 00: Urine Protein 1+ (NEGATIVE) 04/09/24 00: Urine Glucose (UA) Negative (NEGATIVE) 04/09/24 00: Urine Ketones Negative (NEGATIVE) 04/09/24 00: Urine Blood Negative (NEGATIVE) 04/09/24 00: Urine Nitrite Negative (NEGATIVE) 04/09/24 00: Urine Bilirubin Negative (NEGATIVE) 04/09/24 00: Urine Urobilinogen Normal (NORMAL) 04/09/24 00: Ur Leukocyte Esterase Negative (NEGATIVE) 04/09/24 00:27 Urine RBC None seen /HPF (0-3) 04/09/24 00:27 Urine WBC None seen /HPF (0-5) 04/09/24 00:27 Ur Squamous Epith Cells Rare /HPF (NEGATIVE) 04/09/24 00:27 Urine Bacteria Negative /HPF (NEGATIVE) 04/09/24 00:27 Ur Culture Indicated? No/not indicated 04/09/24 00:27 SARS-CoV-2 (PCR) Negative (NEGATIVE) 04/08/24 23:03 Influenza Type A (PCR) Negative (NEGATIVE) 04/08/24 23:03 Influenza Type B (PCR) Negative (NEGATIVE) 04/08/24 23:03 RSV (PCR) Negative (NEGATIVE) 04/08/24 23:03 Plan (1) Acute respiratory failure: Status: Acute Qualifiers: Respiratory failure complication: hypoxia and hypercapnia Qualified Code(s): J96.01 - Acute respiratory failure with hypoxia; J96.02 - Acute respiratory failure with hypercapnia (2) CHF exacerbation: Status: Acute (3) COPD exacerbation: Status: Acute (4) Hypertension: Status: Chronic Qualifiers: Hypertension type: primary hypertension Qualified Code(s): I10 - Essential (primary) hypertension (5) CAD (coronary artery disease): Status: Chronic
[2024-04-10] MEDS ORDERED: MAALOX or MYLANTA PO PRN (23:54)
[2024-04-11 06:48] LABS: BASOPHILS % (AUTO) 0.3 % (0.2-1.0); EOSINOPHILS % (AUTO) 0.1 % (0.9-2.9); HEMOGLOBIN 10.5 g/dL (12.0-16.0); LYMPHOCYTES # (AUTO) 0.8 X10^3/uL (1.3-2.9); LYMPHOCYTES % (AUTO) 7.1 % (21.0-51.0); MEAN CORPUSCULAR HEMOGLOBIN 29.9 pg (27.0-34.0); MEAN CORPUSCULAR HGB CONC 34.1 g/dL (33.0-35.0); MEAN CORPUSCULAR VOLUME 87.8 fL (80.0-100.0); MEAN PLATELET VOLUME 9.7 fL (7.4-11.0); MONOCYTES # (AUTO) 0.5 x10^3/uL (0.3-0.8); MONOCYTES % (AUTO) 4.2 % (0.0-13.0); NEUTROPHILS # (AUTO) 9.8 x10^3/uL (2.2-4.8); NEUTROPHILS % (AUTO) 88.3 % (42.0-75.0); PLATELET COUNT 265 X10^3/uL (150.0-450.0); RED BLOOD COUNT 3.53 X10^6/uL (3.5-5.4); RED CELL DISTRIBUTION WIDTH 16.2 % (11.6-16.5); WHITE BLOOD COUNT 11.1 X10^3/uL (3.6-10.0)
[2024-04-11 08:09] LABS: ALBUMIN 3.1 g/dL (3.4-5.0); CARBON DIOXIDE 33.2 mmol/L (21-32); COR CA(FOR HYPOALB) 9.7 mg/dL (8.5-10.1); CREATININE 1.79 mg/dL (0.55-1.02); POTASSIUM 4.2 mmol/L (3.5-5.1); TOTAL PROTEIN 6.7 g/dL (6.4-8.2)
[2024-04-11] MEDS: LOVENOX INJ 30 MG SYR SC SCH (11:05)
[2024-04-11] MEDS: REQUIP PO SCH (13:10)
[2024-04-12 04:39] VITALS: RESP 18
[2024-04-12 06:12] LABS: BASOPHILS % (AUTO) 0.1 % (0.2-1.0); HEMATOCRIT 32.9 % (36.0-47.0); HEMOGLOBIN 11.1 g/dL (12.0-16.0); LYMPHOCYTES # (AUTO) 0.9 X10^3/uL (1.3-2.9); LYMPHOCYTES % (AUTO) 8.9 % (21.0-51.0); MEAN CORPUSCULAR HEMOGLOBIN 30.1 pg (27.0-34.0); MEAN CORPUSCULAR HGB CONC 33.9 g/dL (33.0-35.0); MEAN CORPUSCULAR VOLUME 88.8 fL (80.0-100.0); MEAN PLATELET VOLUME 9.5 fL (7.4-11.0); MONOCYTES # (AUTO) 0.4 x10^3/uL (0.3-0.8); MONOCYTES % (AUTO) 4.6 % (0.0-13.0); NEUTROPHILS # (AUTO) 8.3 x10^3/uL (2.2-4.8); NEUTROPHILS % (AUTO) 86.4 % (42.0-75.0); PLATELET COUNT 287 X10^3/uL (150.0-450.0); RED CELL DISTRIBUTION WIDTH 16.4 % (11.6-16.5); WHITE BLOOD COUNT 9.6 X10^3/uL (3.6-10.0)
[2024-04-12 06:24] LABS: CALCIUM 8.9 mg/dL (8.5-10.1); CARBON DIOXIDE 33.4 mmol/L (21-32); COR CA(FOR HYPOALB) 9.7 mg/dL (8.5-10.1); CREATININE 1.78 mg/dL (0.55-1.02); TOTAL PROTEIN 6.5 g/dL (6.4-8.2)
--- NOTE | 2024-04-12 07:12 | RAD ---
EXAM:CHEST, 1 VIEWHISTORY:CHF /COPD;COMPARISON:Prior study or studies were utilized for comparison during interpretation with the most relevant dated 04/08/2024TECHNIQUE:CHEST, 1 VIEWFINDINGS:Chest:Lines and tubes: Cardiac leads overlie the chest.Mediastinum: Cardiomegaly.Pulmonary vessels: Pulmonary vasculature is prominent.Lung cheng: No suspicious airspace opacity.Pleura: No effusion. No pneumothorax.Bones and soft tissues: No acute osseous or soft tissue abnormality. Nerve stimulator projects over the right chest.IMPRESSION:1. Findings suggest heart failureTHIS IS AN ELECTRONICALLY VERIFIED FINAL REPORT04/12/2024 7:08 AM - Electronically signed by Oneil Harp MD
--- NOTE | 2024-04-12 09:00 | RAD ---
EXAMINATION: CHEST, 1 VIEW HISTORY: chf; . COMPARISON STUDY: 04/11/2024 TECHNIQUE: One view FINDINGS: Cardiomegaly. Vagus stimulator in place. CHF is decreased. Decrease in vascular distention. No pn eumothorax, new infiltrate or other change noted. EKG leads are present. Previous ACDF. IMPRESSION: Decrease in CHF. Follow-up recommended THIS IS AN ELECTRONICALLY VERIFIED FINAL REPORT 04/12/2024 8:57 AM - Electronically signed by Chau Su MD
[2024-04-12 12:54] VITALS: BP 144/67; PULSE 62; TEMP 97.6; O2SAT 99
== END 2024-04-12 16:15 | disposition home or self-care (01) | DRG 190 ==
LOC: SUPCPDRO → ER 21:15 → MED/SURG 04-09 01:28
PROVIDERS: ADMIT Internal Medicine; ATTEND Internal Medicine
DX: I25.10 Atherosclerotic heart disease of native coronary artery without angina pectoris; Z95.818 Presence of other cardiac implants and grafts; J44.1 Chronic obstructive pulmonary disease with (acute) exacerbation; R26.89 Other abnormalities of gait and mobility; D64.89 Other specified anemias; Z03.818 Encounter for observation for suspected exposure to other biological agents ruled out; I13.0 Hypertensive heart and chronic kidney disease with heart failure and stage 1 through stage 4 chronic kidney disease, or unspecified chronic kidney disease; J96.01 Acute respiratory failure with hypoxia; N18.9 Chronic kidney disease, unspecified; E78.5 Hyperlipidemia, unspecified; Z99.81 Dependence on supplemental oxygen; J96.02 Acute respiratory failure with hypercapnia; I50.9 Heart failure, unspecified; R94.31 Abnormal electrocardiogram [ECG] [EKG]

== ENCOUNTER 2024-06-20 14:53 | Observation (INO) ==
[2024-06-20] MEDS: NS 1,000 ML IV 1,000 ML IV SCH (16:00)
[2024-06-20 16:06] LABS: BASOPHILS # (AUTO) 0.1 X10^3/uL (0.0-0.1); BASOPHILS % (AUTO) 1.3 % (0.2-1.0); EOSINOPHILS # (AUTO) 0.4 x10^3/uL (0.0-0.2); EOSINOPHILS % (AUTO) 4.2 % (0.9-2.9); HEMOGLOBIN 8.9 g/dL (12.0-16.0); LYMPHOCYTES # (AUTO) 1.1 X10^3/uL (1.3-2.9); LYMPHOCYTES % (AUTO) 11.5 % (21.0-51.0); MEAN CORPUSCULAR HEMOGLOBIN 29.6 pg (27.0-34.0); MEAN CORPUSCULAR VOLUME 86.9 fL (80.0-100.0); MEAN PLATELET VOLUME 8.5 fL (7.4-11.0); MONOCYTES # (AUTO) 0.7 x10^3/uL (0.3-0.8); MONOCYTES % (AUTO) 7.5 % (0.0-13.0); NEUTROPHILS # (AUTO) 7.1 x10^3/uL (2.2-4.8); NEUTROPHILS % (AUTO) 75.5 % (42.0-75.0); PLATELET COUNT 286 X10^3/uL (150.0-450.0); RED BLOOD COUNT 2.99 X10^6/uL (3.5-5.4); RED CELL DISTRIBUTION WIDTH 17.3 % (11.6-16.5); WHITE BLOOD COUNT 9.4 X10^3/uL (3.6-10.0)
[2024-06-20] MEDS: DUONEB 0.5 MG/3 MG (3 mL) NEB SCH (16:33)
--- NOTE | 2024-06-20 16:35 | EKG ---
Test Reason : ACUTE ON CHRONIC RENAL FALIURE , > KCL Blood Pressure : */* mmHG Vent. Rate : 58 BPM Atrial Rate : 58 BPM P-R Int : 160 ms QRS Dur : 116 ms QT Int : 464 ms P-R-T Axes : 23 22 116 degrees QTc Int : 455 ms Sinus bradycardia Left ventricular hypertrophy with QRS widening and repolarization abnormality ( R in aVL , Eladio pr oduct , Romhilt-Larson ) Abnormal ECG When compared with ECG of 09-APR-2024 01:53, premature atrial complexes are no longer present Confirmed by Zelalem Lopez MD ([id number]) on 06/21/2024 5:49:00 AM Referred By: Confirmed By: Zelalem Lopez MD
[2024-06-20 16:38] LABS: ALBUMIN 3.3 g/dL (3.4-5.0); CALCIUM 9.1 mg/dL (8.5-10.1); COR CA(FOR HYPOALB) 9.7 mg/dL (8.5-10.1); POTASSIUM 4.4 mmol/L (3.5-5.1); TOTAL PROTEIN 6.9 g/dL (6.4-8.2)
--- NOTE | 2024-06-20 17:35 | DR.H&P ---
H&P History & Physical for Day of: H&P Date: 06/20/24 Chief Complaint Chief Complaint: HIGH POTASSIUM History of Present Illness History of Present Illness: PT IS 73 WF, DIRECT ADMIT FROM DR BUSTOS OFFICE FOR AN ER FOLLOW UP AFTER SHE HAD OUTPT LABS RESULTING IN ELEVATED POTASSIUM AND INCREASED BUN Past Medical History Past Medical History: Anxiety, Arthritis, CHF, COPD, Coronary Artery Disease, Depression, Dyslipidemia, GERD, Hypertension, Renal Disease and Sleep Apnea Past Surgical History Surgical History: Angioplasty/Stents, Hysterectomy and Ortho Surgery Family History Family Medical History: Heart Failure, Sudden Cardiac and Hypertension Medications Home Medications: Home Medications Medication Instructions Recorded Confirmed Type carvedilol 12.5 mg tablet 12.5 mg PO QAM 06/26/22 04/08/24 History citalopram 40 mg tablet 40 mg PO HS 06/26/22 04/08/24 History losartan 50 mg tablet 50 mg PO QDAY 06/26/22 04/08/24 History ropinirole 2 mg tablet 2 mg PO TID 06/26/22 04/08/24 History cyanocobalamin (vitamin B-12) 1,000 mcg PO QDAY 10/06/22 04/08/24 History 1,000 mcg tablet fenofibrate 160 mg tablet 160 mg PO QPM 06/25/23 04/08/24 History pantoprazole 40 mg tablet,delayed 40 mg PO BID 06/25/23 04/08/24 History release spironolactone 25 mg tablet 25 mg PO QAM 06/25/23 04/08/24 History amlodipine 10 mg tablet 10 mg PO DAILY 04/08/24 04/08/24 History atorvastatin 80 mg tablet 80 mg PO QHS 04/08/24 04/08/24 History darbepoetin nitza in polysorbat 200 200 mcg subcut Q4W 04/08/24 04/08/24 History mcg/0.4 mL in polysorbate injection syringe (Aranesp) ergocalciferol (vitamin D2) 1,250 1,250 mcg PO QWEEK 04/08/24 04/08/24 History mcg (50,000 unit) capsule fluticasone fur. 100 mcg-umeclid 1 inh inhalation DAILY 04/08/24 04/08/24 History 62.5 mcg-vilant 25 mcg inhalat.powder (Trelegy Ellipta) fluticasone propionate 50 1 spray intranasal BID 04/08/24 04/08/24 History mcg/actuation nasal spray,suspension furosemide 40 mg tablet 40 mg PO QDAY 04/08/24 04/08/24 History gabapentin 100 mg capsule 100 mg PO BID 04/08/24 04/08/24 History magnesium oxide 400 mg PO QDAY 04/08/24 04/08/24 History melatonin 10 mg tablet 10 mg PO HS 04/08/24 04/08/24 History simethicone 80 mg chewable tablet 80 mg PO DAILY 04/08/24 04/08/24 History amlodipine 10 mg tablet 10 mg PO QDAY 06/17/24 06/17/24 History atorvastatin 80 mg tablet 80 mg PO DAILY 06/17/24 06/17/24 History buspirone 5 mg tablet 5 mg PO QDAY PRN anxiety 06/17/24 06/17/24 History carvedilol 12.5 mg tablet 12.5 mg PO DAILY 06/17/24 06/17/24 History citalopram 40 mg tablet 40 mg PO QDAY 06/17/24 06/17/24 History clopidogrel 75 mg tablet 75 mg PO BID 06/17/24 06/17/24 History ergocalciferol (vitamin D2) 1,250 1,250 mcg PO QWEEK 06/17/24 06/17/24 History mcg (50,000 unit) capsule fenofibrate 160 mg tablet 160 mg PO DAILY 06/17/24 06/17/24 History fluticasone propionate 50 1 spray intranasal BID 06/17/24 06/17/24 History mcg/actuation nasal spray,suspension losartan 50 mg tablet 50 mg PO QDAY 06/17/24 06/17/24 History pantoprazole 40 mg tablet,delayed 40 mg PO BID 06/17/24 06/17/24 History release ropinirole 2 mg tablet 2 mg PO TID PRN 06/17/24 06/17/24 History spironolactone 25 mg tablet 25 mg PO DAILY 06/17/24 06/17/24 History tramadol 50 mg tablet 50 mg PO BID 06/17/24 06/17/24 History Allergies Allergies Allergy/AdvReac Type Severity Reaction Status Date / Time nystatin Allergy Verified 06/17/24 20:29 codeine AdvReac Unknown Verified 06/17/24 20:29 Labs 06/20/24 15:56 06/20/24 15:56 Labs: Laboratory WBC 9.4 X10^3/uL (3.6-10.0) 06/20/24 15:56 RBC 2.99 X10^6/uL (3.5-5.4) L 06/20/24 15:56 Hgb 8.9 g/dL (12.0-16.0) L 06/20/24 15:56 Hct 26.0 % (36.0-47.0) L 06/20/24 15:56 MCV 86.9 fL (80.0-100.0) 06/20/24 15:56 MCH 29.6 pg (27.0-34.0) 06/20/24 15:56 MCHC 34.0 g/dL (33.0-35.0) 06/20/24 15:56 RDW 17.3 % (11.6-16.5) H 06/20/24 15:56 Plt Count 286 X10^3/uL (150.0-450.0) 06/20/24 15:56 MPV 8.5 fL (7.4-11.0) 06/20/24 15:56 Neut % (Auto) 75.5 % (42.0-75.0) H 06/20/24 15:56 Lymph % (Auto) 11.5 % (21.0-51.0) L 06/20/24 15:56 [place] % (Auto) 7.5 % (0.0-13.0) 06/20/24 15:56 Eos % (Auto) 4.2 % (0.9-2.9) H 06/20/24 15:56 Baso % (Auto) 1.3 % (0.2-1.0) H 06/20/24 15:56 Neut # (Auto) 7.1 x10^3/uL (2.2-4.8) H 06/20/24 15:56 Lymph # (Auto) 1.1 X10^3/uL (1.3-2.9) L 06/20/24 15:56 [place] # (Auto) 0.7 x10^3/uL (0.3-0.8) 06/20/24 15:56 Eos # (Auto) 0.4 x10^3/uL (0.0-0.2) H 06/20/24 15:56 Baso # (Auto) 0.1 X10^3/uL (0.0-0.1) 06/20/24 15:56 Absolute Nucleated RBC 0.1 /100WBC 06/20/24 15:56 Sodium 138 mmol/L (136-145) 06/20/24 15:56 Corrected Sodium 139 mmol/L (136-145) 06/20/24 15:56 Potassium 4.4 mmol/L (3.5-5.1) 06/20/24 15:56 Chloride 99 mmol/L (98-107) 06/20/24 15:56 Carbon Dioxide 32.0 mmol/L (21-32) 06/20/24 15:56 BUN 49 mg/dL (7-18) H 06/20/24 15:56 Creatinine 4.00 mg/dL (0.55-1.02) H 06/20/24 15:56 Est GFR (MDRD) Af Amer 14 (>60) L 06/20/24 15:56 Est GFR (MDRD) Non-Af 12 (>60) L 06/20/24 15:56 Glucose 126 mg/dL (65-99) H 06/20/24 15:56 Calcium 9.1 mg/dL (8.5-10.1) 06/20/24 15:56 Corrected Calcium 9.7 mg/dL (8.5-10.1) 06/20/24 15:56 Total Bilirubin 0.30 mg/dL (0.2-1.0) 06/20/24 15:56 AST 36 Units/L (15-37) 06/20/24 15:56 ALT 23 Units/L (12-78) 06/20/24 15:56 Alkaline Phosphatase 47 Units/L (46-116) 06/20/24 15:56 Total Protein 6.9 g/dL (6.4-8.2) 06/20/24 15:56 Albumin 3.3 g/dL (3.4-5.0) L 06/20/24 15:56 Globulin 3.6 g/dL (2.5-4.5) 06/20/24 15:56 Albumin/Globulin Ratio 0.9 Ratio (1.1-2.1) L 06/20/24 15:56 Review of Systems Constitutional: Weakness Eyes: No Symptoms Reported ENT: No Symptoms Reported Respiratory: Shortness of Breath Cardiovascular: No Symptoms Reported Gastrointestinal: No Symptoms Reported Genitourinary: No Symptoms Reported Musculoskeletal: No Symptoms Reported Skin: No Symptoms Reported Neurological: Other (DIZZINESS) Physical Exam Vital Signs: Vital Signs Temperature 98.4 F Pulse Rate [Radial] 65 Respiratory Rate 20 Blood Pressure [Left Arm] 118/56 O2 Sat by Pulse Oximetry 97 Oriented: Normal Eyes: Normal Ear: Normal Nose: Normal Throat: Normal Respiratory: RLL Diminished and LLL Diminished Cardiovascular: Normal : Normal Palpation: Normal Tenderness: Normal Skin: Decreased Turgur Musculoskeletal: Back:Lumbar Psychiatric: Anxiety Mood Description: Anxious Affect: Anxious Speech Pattern: Clear and Appropriate Assessment/Plan (1) Chronic renal insufficiency: Status: Acute Plan: ADMIT, STRICT I &OS GENTLE IV HYDRATION CARDIAC MONITORING, BP CONTROL VERIFY HOME MEDICATIONS CXR ON ADMISSION, RESP THERAPY (2) Hyperkalemia: Status: Acute (3) Acute respiratory failure: Qualifiers: Respiratory failure complication: hypoxia and hypercapnia Qualified Code(s): J96.01 - Acute respiratory failure with hypoxia; J96.02 - Acute respiratory failure with hypercapnia Status: Acute (4) CHF (congestive heart failure): Status: Acute (5) COPD exacerbation: Status: Acute
[2024-06-20 17:46] VITALS: BMI 34.9
[2024-06-20] MEDS ORDERED: LIPITOR TAB 20 MG ONE (19:26)
[2024-06-20] MEDS ORDERED: COREG TAB 12.5 MG ONE (19:26)
[2024-06-20 20:10] LABS: BILIRUBIN,URINE NEGATIVE (NEGATIVE); BLOOD/HEMOGLOBIN,URINE NEGATIVE (NEGATIVE); GLUCOSE, URINE NEGATIVE (NEGATIVE); KETONES,URINE NEGATIVE (NEGATIVE); LEUKOCYTE ESTERASE ,URINE NEGATIVE (NEGATIVE); NITRITES,URINE NEGATIVE (NEGATIVE); PROTEIN,URINE NEGATIVE (NEGATIVE); UROBILINOGEN,URINE NORMAL (NORMAL)
[2024-06-20 20:11] LABS: APPEARANCE,URINE CLEAR (CLEAR); COLOR,URINE YELLOW (YELLOW)
[2024-06-20] MEDS: PULMICORT NEB TX 0.5 MG NEB SCH (20:35)
[2024-06-20] MEDS: COREG TAB 12.5 MG PO SCH (20:55)
[2024-06-20] MEDS: LIPITOR TAB 20 MG PO SCH (20:56)
[2024-06-21 06:31] LABS: BASOPHILS # (AUTO) 0.1 X10^3/uL (0.0-0.1); BASOPHILS % (AUTO) 1.2 % (0.2-1.0); EOSINOPHILS # (AUTO) 0.4 x10^3/uL (0.0-0.2); EOSINOPHILS % (AUTO) 5.4 % (0.9-2.9); HEMATOCRIT 26.9 % (36.0-47.0); LYMPHOCYTES % (AUTO) 12.7 % (21.0-51.0); MEAN CORPUSCULAR HEMOGLOBIN 29.4 pg (27.0-34.0); MEAN CORPUSCULAR HGB CONC 33.6 g/dL (33.0-35.0); MEAN CORPUSCULAR VOLUME 87.5 fL (80.0-100.0); MEAN PLATELET VOLUME 8.7 fL (7.4-11.0); MONOCYTES # (AUTO) 0.5 x10^3/uL (0.3-0.8); MONOCYTES % (AUTO) 6.6 % (0.0-13.0); NEUTROPHILS # (AUTO) 5.6 x10^3/uL (2.2-4.8); NEUTROPHILS % (AUTO) 74.1 % (42.0-75.0); PLATELET COUNT 263 X10^3/uL (150.0-450.0); RED BLOOD COUNT 3.07 X10^6/uL (3.5-5.4); RED CELL DISTRIBUTION WIDTH 17.1 % (11.6-16.5); WHITE BLOOD COUNT 7.6 X10^3/uL (3.6-10.0)
[2024-06-21 06:53] LABS: CALCIUM 9.1 mg/dL (8.5-10.1); CARBON DIOXIDE 30.5 mmol/L (21-32); COR CA(FOR HYPOALB) 9.9 mg/dL (8.5-10.1); CREATININE 2.96 mg/dL (0.55-1.02); POTASSIUM 4.1 mmol/L (3.5-5.1); TOTAL PROTEIN 6.7 g/dL (6.4-8.2)
--- NOTE | 2024-06-21 08:59 | RAD ---
EXAM:CHEST, 1 VIEWHISTORY:> POTASSIUM, RENAL FAILURE;COMPARISON:04/12/2024TECHNIQUE:A P portableFINDINGS:Right-sided vagal nerve stimulator in place. Stable prominent cardiac silhouette, accentuated by AP technique. Left atrial appendage occlusion device in place. No focal consolidation, large pleural effusion, or visible pneumothorax.IMPRESSION:No acute cardiopulmonary findings.THIS IS AN ELECTRONICALLY VERIFIED FINAL REPORT06/21/2024 8:55 AM - Electronically signed by Jordy Fan MD
[2024-06-21] MEDS ORDERED: COREG TAB 12.5 MG PO SCH (09:00)
[2024-06-21] MEDS: PLAVIX PO SCH (09:27)
[2024-06-21] MEDS: CELEXA PO SCH (09:27)
[2024-06-21] MEDS: ZANAFLEX PO PRN (13:00)
[2024-06-21] MEDS: ULTRAM PO PRN (16:00)
[2024-06-22 06:00] LABS: BASOPHILS # (AUTO) 0.1 X10^3/uL (0.0-0.1); BASOPHILS % (AUTO) 0.7 % (0.2-1.0); EOSINOPHILS # (AUTO) 0.4 x10^3/uL (0.0-0.2); EOSINOPHILS % (AUTO) 5.5 % (0.9-2.9); HEMATOCRIT 25.7 % (36.0-47.0); HEMOGLOBIN 8.8 g/dL (12.0-16.0); LYMPHOCYTES % (AUTO) 12.3 % (21.0-51.0); MEAN CORPUSCULAR HEMOGLOBIN 29.8 pg (27.0-34.0); MEAN CORPUSCULAR HGB CONC 34.1 g/dL (33.0-35.0); MEAN CORPUSCULAR VOLUME 87.4 fL (80.0-100.0); MEAN PLATELET VOLUME 8.4 fL (7.4-11.0); MONOCYTES # (AUTO) 0.7 x10^3/uL (0.3-0.8); MONOCYTES % (AUTO) 8.2 % (0.0-13.0); NEUTROPHILS % (AUTO) 73.3 % (42.0-75.0); PLATELET COUNT 267 X10^3/uL (150.0-450.0); RED BLOOD COUNT 2.94 X10^6/uL (3.5-5.4); WHITE BLOOD COUNT 8.2 X10^3/uL (3.6-10.0)
[2024-06-22 06:08] LABS: ALANINE AMINOTRANSFERASE 17 Units/L (12-78); ALBUMIN 2.9 g/dL (3.4-5.0); ALKALINE PHOSPHATASE 41 Units/L (46-116); ASPARTATE AMINO TRANSFERASE 22 Units/L (15-37); BLOOD UREA NITROGEN 33 mg/dL (7-18); CALCIUM 9.1 mg/dL (8.5-10.1); CARBON DIOXIDE 31.7 mmol/L (21-32); CHLORIDE 103 mmol/L (98-107); CREATININE 2.15 mg/dL (0.55-1.02); GLUCOSE 83 mg/dL (65-99); POTASSIUM 4.5 mmol/L (3.5-5.1); SODIUM 138 mmol/L (136-145); TOTAL PROTEIN 6.6 g/dL (6.4-8.2); eGFR NON BLACK RACES 24 (>60)
[2024-06-22 09:42] VITALS: O2SAT 96
[2024-06-22] MEDS: LASIX IVP ONE (10:22)
[2024-06-22 11:29] VITALS: BP 137/61; PULSE 65; RESP 20; TEMP 97.8
--- NOTE | 2024-06-22 15:56 | RAD ---
EXAM:CHEST, 1 VIEWHISTORY:SOB ; CHF, HTN, CARDIAC ARRHYTHMIA, COPD, SLEEP APNEA SX: ANGIO/STENTS, WATCHMAN, KIDNEY, CSPINECOMPARISON:06/20/2024TECHNIQUE:AP portableFINDINGS:Right vagal nerve stimulator lead in place. Stable prominent cardiac silhouette. Low lung volumes. No focal consolidation, pleural effusion, or visible pneumothorax.IMPRESSION:No acute cardiopulmonary findings.THIS IS AN ELECTRONICALLY VERIFIED FINAL REPORT06/22/2024 3:53 PM - Electronically signed by Jordy Fan MD
== END 2024-06-22 10:55 | disposition home health service (06) ==
LOC: MED/SURG
PROVIDERS: ADMIT Internal Medicine; ATTEND Internal Medicine